=== PATIENT | female | born 1955 | race Caucasian/White ===

== ENCOUNTER 2019-02-27 15:31 | Inpatient (IN) ==
[2019-02-27] MEDS ORDERED: RITALIN PO PRN (17:29)
[2019-02-27] MEDS: LOVENOX SUBQ SCH (18:00)
[2019-02-27 18:07] LABS: BASO# 0.02 X1000 (0.0-0.2); BASO% 0.2 % (0.0-0.8); EOS# 0.03 X1000 (0.0-0.7); EOS% 0.4 % (0.0-10.0); HEMATOCRIT 27.3 % (37.0-47.0); HEMOGLOBIN 8.9 g/dL (12.0-16.0); IMM GRAN# 0.02 X1000 (0.0-0.04); IMM GRAN% 0.2 % (0.0-0.5); LYMPH# 0.67 X1000 (1.2-3.4); LYMPH% 7.9 % (20.5-51.1); MCH 31.8 PG (27-31); MCHC 32.6 g/dL (33-37); MCV 97.5 FL (81-99); MONO# 0.79 X1000 (0.11-0.59); MONO% 9.3 % (1.7-9.3); NEUT# 6.99 X1000 (1.4-6.5); PLT 79 X1000 (130-400); RDW 19.2 % (11.5-14.5); WBC 8.52 X1000 (4.8-10.8)
[2019-02-27] MEDS: ZOSYN 3.375 GM in NS 50 ML IV SCH (18:19)
[2019-02-27] MEDS: PEPCID IV SCH (18:19)
[2019-02-27 18:26] LABS: ESTIMATED GFR > 60
[2019-02-27 18:29] LABS: AGAP 15; ALB/GLOB RATIO 0.8; ALKALINE PHOSPHATASE 130 U/L (32-104); BUN 15 mg/dL (8-22); C REACTIVE PROT QUANT 279.57 mg/L (0.00-5.00); CALCIUM 8.8 mg/dL (8.8-10.2); CHLORIDE 92 mmol/L (98-107); COSMO 263; CREATININE 0.9 mg/dL (0.5-0.9); GLUCOSE 161 mg/dL (70-104); GOT 10 U/L (10-30); GPT 6 U/L (10-36); POTASSIUM 4.6 mmol/L (3.5-5.1); SODIUM 129 mmol/L (136-145); TCO2 22 mmol/L (25-35); TOTAL BILIRUBIN 0.51 mg/dL (0.20-1.00); TOTAL PROTEIN 6.9 g/dL (6.3-8.3)
[2019-02-27] MEDS ORDERED: VANCOMYCIN IV PER PHARMACY MISC SCH (18:45)
[2019-02-27] MEDS: DILAUDID IV PRN (19:19)
[2019-02-27] MEDS: 1/2 NS 1,000 ML IV SCH (20:50)
[2019-02-27] MEDS: VANCOMYCIN 1.9 GM in NS 500 ML IV SCH (20:50)
--- NOTE | 2019-02-27 22:37 | HISTORY AND PHYSICAL ---
CHIEF COMPLAINT: Direct admission from Dr. Ashley's office for radiation skin burn with necroses on the back of the neck, left shoulder, the whole left breast radiating to the left side of the implant. HISTORY OF PRESENT ILLNESS: She is a 63-year-old white female has been battling with metastatic breast cancer since March 2014. She has been under the care of Dr. Ashley, Dr. Serrano, Dr. Quiñones. She had a stage III positive lymph nodes radical mastectomy followed by reconstruction by Dr. Quiñones . I have not seen the patient since 2015. She has a recurrence of the disease. Subsequently, she finished radiation therapy a month ago. She is requiring hematological support. Waiting for a repeat PET scan. In the meantime, she developed radiation necrotic ulcer on the nape of the neck with foul-smelling drainage on the left breast implant, on the side of the abdomen. Basically, admitted to the hospital with IV antibiotics, hematological support, pain control, removal of the breast implant with debridement with aggressive IV antibiotics and cultures. The patient is undergoing outpatient wound care without any improvement. Dr. Quiñones was consulted as well as Dr. Ashley. PAST MEDICAL HISTORY: Recurrent left breast cancer, stage IV, cervical spondylosis, type 2 diabetes, metabolic syndrome, hypertension, history of shingles in the left L1, hiatal hernia, hyperlipidemia, sleep apnea, lymphedema on the left side. PAST SURGICAL HISTORY: A dermoid cyst excision, left mastectomy followed by reconstruction with lymphadenectomy, port on the right side. MEDICATIONS: Listed Effexor 235 daily, Zyrtec 10 mg p.o. b.i.d., metformin 500 p.o. b.i.d., Ritalin 5 p.o. b.i.d., [place] 7.5 10 t.i.d., Xanax 0.25 p.o. b.i.d., fentanyl patch 125 mcg daily, Mag oxide, baclofen 5 p.o. b.i.d., Lyrica 25 daily. ALLERGIES: Loratadine and Flonase. SOCIAL HISTORY: She is . One child. 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 No smoking. Socially drinks alcohol. FAMILY HISTORY: Father at the age of 74 from COPD. Mom 82 years old with breast cancer with mastectomy. REVIEW OF SYSTEMS: HEENT: No headache. No vision problem. She also has some inflammatory changes in the right breast. Port on the right side. necrotic ulcer on the back of the neck all the way to the left shoulder and the whole left breast implant was infected. Left arm lymphedema noted. Chest: Bilateral air entry. Heart: Distant heart sounds. Abdomen: Belly is soft, nontender. No peripheral edema or cyanosis. Neurologic: No obvious neurological deficits. Neck: No neck pain. A lot of pain around the back of the neck. Cardiopulmonary: No chest pain, shortness of breath, PND, orthopnea. Extremities: Swelling of left arm. Foul-smelling drainage of the skin from the necrotic area of the left breast. GI: No nausea, vomiting, abdominal pain. : No history of hesitancy, frequency, dysuria. No swelling of legs. No joint pain. Neurologic: No focal symptoms weakness. EXAMINATION: Vital signs: Temperature is 99.8 degrees, pulse 107, blood pressure 123/73. 5 feet 6, 204 pounds. HEENT: Atraumatic, normocephalic. Pupils equal, reactive to light. Alopecia noted. Radiation burn on the nape of the neck extending down to the left upper shoulder and the whole left breast implant was infected and lymphedema noted on the left side. Chest: Bilateral air entry. Heart: Sounds are regular. Abdomen: Belly is soft, nontender. Good bowel sounds. Extremities: No peripheral edema or cyanosis. Neurologic: No obvious neurological deficits. INVESTIGATIONS: CBC: White cell count 8.5, hematocrit 27, platelets 79,000. Sodium 129, potassium 4.6, chloride 92, BUN 15, creatinine 0.9, glucose 167, alkaline phosphatase 130. CRP is high. ASSESSMENT AND PLAN: 1. A 63-year-old white female with metastatic breast cancer, status post chemotherapy and radiation, complicated by radiation skin burn, foul-smelling drainage, infected implant. Plan is removal of the implant along with debridement by Dr. Quiñones. 2. Pain control with Dilaudid and fentanyl patch 25 mcg daily. 3. Continue IV fluids. 4. Deep vein thrombosis and gastrointestinal prophylaxis as per order sheet. Reconcile home medicines. Initiate antibiotics with vancomycin and Zosyn. 5. History of anemia, recently has transfusion. Maintain hematocrit around 30 in light of preparing for surgery. 6. Type 2 diabetes on metformin. 7. Reconcile home medications. Appreciated consultants. Will follow up. cc: Michael Cloud MD MTDD
[2019-02-28] MEDS: ZOSYN 3.375 GM in NS 50 ML IV SCH ×4 (01:28→18:44)
[2019-02-28] MEDS: DILAUDID IV PRN ×4 (01:43→21:30)
[2019-02-28] MEDS ORDERED: NS 500 ML ONE ×2 (02:46→14:47)
[2019-02-28] MEDS: TYLENOL PO PRN ×2 (03:26→21:37)
[2019-02-28] MEDS: PEPCID IV SCH ×2 (06:44→16:29)
[2019-02-28] MEDS: GLUCOPHAGE PO SCH ×2 (10:31→16:28)
[2019-02-28] MEDS: LASIX PO SCH (10:32)
[2019-02-28] MEDS: 1/2 NS 1,000 ML IV SCH ×2 (11:08→16:27)
[2019-02-28] MEDS: EFFEXOR XR PO SCH (11:39)
[2019-02-28] MEDS ORDERED: DIPRIVAN 1% ONE (12:07)
[2019-02-28] MEDS ORDERED: XYLOCAINE-MPF 2% ONE (12:08)
[2019-02-28] MEDS ORDERED: DILAUDID ONE (13:15)
[2019-02-28] MEDS ORDERED: SODIUM CHLORIDE 0.9% 10 ML ONE (13:16)
[2019-02-28] MEDS ORDERED: ZOFRAN ONE (13:58)
[2019-02-28] MEDS: DILAUDID ONE ×4 (14:40→14:55)
[2019-02-28] MEDS ORDERED: PHENERGAN ONE (14:59)
[2019-02-28] MEDS: LOVENOX SUBQ SCH (16:29)
--- NOTE | 2019-02-28 20:11 | PROGRESS NOTE ---
DATE: 02/28/2019 SUBJECTIVE: The patient is in a lot of pain, did not have any good sleep. Waiting for debridement of the radiation ulcers on the neck and the shoulder and the left breast. REVIEW OF SYSTEMS: Within normal limits. OBJECTIVE: Neck: Supple. Chest: Bilateral air entry. Cardiovascular: Heart sounds are regular. Abdomen: Belly is soft, nontender. Good bowel sounds. Neurological: No neurological deficits. INVESTIGATIONS: CBC: White cell count 8.5, hematocrit 27.3, platelets 79,000, SMA 7, sodium 129, potassium 4.6, alkaline phosphatase 130. CRP was high. ASSESSMENT AND PLAN: 1. Anemia due to chronic disease. Transfusion of 1 unit of packed RBCs. 2. Metastatic breast cancer under the care of Dr. Ashley status post radiation. 3. Necrotic ulcer on the back of the neck and the left breast. IV vancomycin and Zosyn. 4. Waiting for debridement. 5. Pain control with fentanyl patch and Dilaudid. DVT and GI prophylaxis with Lovenox and Pepcid. 6. Type 2 diabetes on metformin. We will follow up. LEVEL OF DOCUMENTATION: 25 minutes. cc: Michael Cloud MD
--- NOTE | 2019-02-28 20:42 | OPERATIVE NOTE ---
PROCEDURE DATE: 02/28/2019 PREOPERATIVE DIAGNOSES: 1. Left breast cancer. 2. Radiation-induced necrosis of chest wall, left axilla and left neck. 3. Exposed left breast implant with purulence, with infection. POSTOPERATIVE DIAGNOSES: 1. Left breast cancer. 2. Radiation-induced necrosis of chest wall, left axilla and left neck. 3. Exposed left breast implant with purulence, with infection. PROCEDURE PERFORMED: 1. Removal of left breast implant. 2. Excisional debridement of left inferior chest wall wound down to pectoralis muscle, 11 x 5 cm. 3. Excisional debridement of left superior chest wound down to muscle, 6 x 5 cm. 4. Excisional debridement of left axilla, 9 x 4 cm, down to subcutaneous tissue and muscle. 5. Excision of left neck down to the level of the muscle, 9 x 3 cm. OPERATIVE NOTE: Risks, benefits and alternatives were discussed with the patient. She consented to the procedure, seen preoperatively and the surgical site was confirmed and marked. She was taken to the operating room. She was placed with left arm out and prepped with Betadine on the left neck, chest and axilla. She was draped in the usual fashion. After a time-out I made an incision through the necrotic portions of her left breast reconstruction. I expressed a large amount of pus, which was cultured. We then extended the inframammary incision and removed the implant, after dissecting out the loosely attached fibrotic capsule. It appeared that most of her [place] skin flap was necrotic, but the latissimus flap was perfused and intact from medial to lateral. This left a large space posteriorly. We debrided the necrotic tissue, noted hemostasis and excised some of the capsule. We washed out the purulence with Vashe and packed it with Vashe Kerlix. We then debrided the left neck and left axilla wounds with a curette, noting hemostasis. Dressing was applied. Overall, she had extensive skin changes and soft tissue changes, but we felt we had adequate control of the infection and necrosis at this juncture. Vashe dressing was applied to each as well as ABD and tape out laterally and medially, to relatively normal-appearing skin. She tolerated it well, was awoken and transferred to recovery. I spoke with family. We will keep her in the hospital for antibiotics and wound care going forward. cc: MD Michael Bloom MD
--- NOTE | 2019-02-28 20:48 | GENERAL SURGERY CONSULTATION ---
DATE: 02/28/2019 HISTORY OF PRESENT ILLNESS: This is a 63-year-old female with a history of left breast cancer. She was operated on by Dr. Narayanan approximately 5 years ago, underwent a modified radical mastectomy. She had reconstruction by Dr. Timmons requiring latissimus dorsi flap for wound issues and wound coverage. Apparently, she underwent radiation at that time and then had a recurrence and underwent a second round of radiation. I have seen her at the [facility] last 2 weeks. She initially presented with significant radiation-induced necrosis to her skin, left chest. We started local wound care, saw her in a short interval at which point the necrosis had progressed and she now had exposed implant on the left chest with purulence. She was admitted for further management of this. MEDICAL HISTORY: 1. Metastatic breast cancer. 2. 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 3. Radiation-induced left chest necrosis. 4. Cervical spine disease. 5. Hypertension. 6. Hyperlipidemia. 7. Sleep apnea. 8. Lymphedema. SURGICAL HISTORY: 1. Left modified radical mastectomy with reconstruction with an implant and a latissimus flap. 2. Right-sided port. 3. Dermoid cyst. MEDICATIONS: Ongoing Carboplatin chemotherapy. SOCIAL HISTORY: No tobacco, alcohol, or drugs. She is . She has an attentive family. FAMILY HISTORY: Reviewed. REVIEW OF SYSTEMS: Ten point negative. PHYSICAL EXAMINATION: Vital signs: She has had a low-grade fever overnight, low-grade tachycardia. Blood pressure is 1 teens to 120s, oxygen saturation mid to high 90s on room air. General: She is alert, extensive necrosis of the left neck and chest with open wounds in the left chest, axilla, neck, exposed implants, left upper quadrant extensive radiation changes, left upper extremity edema peripheral vascular right-sided port. Psychiatric: Appropriate affect with some confusion. Neurologic: No gross deficits. Cardiovascular: Normal rate. Pulmonary: No increased work of breathing. LABORATORY DATA: Her white count is 8, hematocrit is 27, creatinine 0.9. ASSESSMENT AND PLAN: This 63-year-old female had a long discussion with the [facility] yesterday. She has been admitted. She consents to left breast implant removal with debridement of her necrotic wounds. We discussed the very poor nature of this healing. We will continue antibiotics, wound care through the weekend with I suspect ultimate plans for hospice and palliative care going forward. cc: MD Michael Bloom MD
[2019-03-01] MEDS: ZOSYN 3.375 GM in NS 50 ML IV SCH ×4 (01:13→20:42)
[2019-03-01] MEDS: DILAUDID IV PRN ×2 (01:13→08:39)
[2019-03-01] MEDS: VANCOMYCIN 1.9 GM in NS 500 ML IV SCH (01:53)
[2019-03-01] MEDS: PEPCID IV SCH ×2 (06:01→20:46)
[2019-03-01] MEDS: SODIUM CHLORIDE 0.9% INJ SCH ×2 (06:01→20:46)
[2019-03-01] MEDS: GLUCOPHAGE PO SCH ×2 (08:37→20:44)
[2019-03-01] MEDS: LASIX PO SCH (08:37)
[2019-03-01] MEDS: EFFEXOR XR PO SCH (08:37)
[2019-03-01] MEDS ORDERED: DURAGESIC 25 MICROGM/HR PATCH TD SCH (09:00)
[2019-03-01] MEDS ORDERED: TEMOVATE 0.05% CREAM TOP SCH (09:00)
[2019-03-01] MEDS: 1/2 NS 1,000 ML IV SCH (09:17)
[2019-03-01] MEDS: DURAGESIC 100 MICROGM/HR PATCH TD SCH (09:17)
--- NOTE | 2019-03-01 10:51 | PROGRESS NOTE ---
DATE: 03/01/2019 SUBJECTIVE: The patient is a 63 -year-old white female with known case of metastatic breast cancer. The patient had radiation burn on her back of the neck, left shoulder, whole left breast requiring debridement of the necrotic skin, IV antibiotics and pain control. The patient underwent removal of left breast implant, excision debridement of inferior chest wall wound down to the pectoralis muscle, the superior chest wall wound, debridement of left axilla, excision of the left neck wound. The patient tolerated procedure well. The patient is on IV antibiotics and pain management. She denied any high-grade fever or chills. No typical chest pain or palpitations. Mild nausea. No vomiting. Admission history and physical noted. PAST MEDICAL HISTORY: Significant for left breast cancer stage IV, cervical spondylosis, metabolic syndrome, hypertension, hiatal hernia, hyperlipidemia and sleep apnea. OBJECTIVE: Vital Signs: Vital signs noted. Neck: Supple. No JVD. Lungs: Bibasilar crepitations. Heart: S1 and S2 heard. Abdomen: Soft, nontender. Bowel sounds present. No acute DVT in the legs. ACQUISITION ADVISOR: Alert, awake able to move all 4 limbs. ADMISSION LABORATORY DATA: Revealed sodium 129, potassium 4.6, chloride 92, carbon dioxide 22, C- reactive protein 279.57. Hemoglobin 8.9, hematocrit 29.3. ASSESSMENT/PLAN: 1. Consideration radiation burn on the chest wall, neck, status post debridement. 2. History of breast cancer. 3. Hyponatremia. 4. Anemia of chronic disease. 5. Metabolic syndrome. 6. Hypertension. 7. Labs and medication noted. 8. We will continue current treatment and close observation. 9. Overall plan discussed with the patient and daughter and they are in agreement. cc: MD Michael Avendano MD
--- NOTE | 2019-03-01 12:12 | PROGRESS NOTE ---
DATE: 03/01/2019 SUBJECTIVE: Ms. Paty Alonzo is a 63-year-old white female with metastatic left breast cancer and she underwent debridement of her wounds, left chest, and removal of an implant per Dr. Quiñones yesterday. The wounds are dressed. She is awake and cooperative. PLAN: We will advance her diet. We will get her pain medicine correct. She is receiving IV antibiotics. We will leave her dressings in place. cc: MD Michael Cook MD
[2019-03-01] MEDS: NORCO-7.5 PO PRN ×2 (14:57→20:52)
[2019-03-01] MEDS: LOVENOX SUBQ SCH (20:45)
[2019-03-02] MEDS: 1/2 NS 1,000 ML IV SCH ×2 (00:07→16:48)
[2019-03-02] MEDS: DILAUDID IV PRN ×4 (00:40→23:16)
[2019-03-02] MEDS: ZOSYN 3.375 GM in NS 50 ML IV SCH ×4 (03:48→20:13)
[2019-03-02] MEDS: PEPCID IV SCH ×2 (06:22→16:44)
[2019-03-02] MEDS: SODIUM CHLORIDE 0.9% INJ SCH (06:22)
[2019-03-02 07:22] LABS: EOS# 0.03 X1000 (0.0-0.7); EOS% 0.7 % (0.0-10.0); HEMATOCRIT 28.4 % (37.0-47.0); LYMPH# 0.51 X1000 (1.2-3.4); LYMPH% 12.3 % (20.5-51.1); MCH 30.9 PG (27-31); MCHC 31.7 g/dL (33-37); MCV 97.6 FL (81-99); MONO# 0.32 X1000 (0.11-0.59); MONO% 7.7 % (1.7-9.3); MPV 9.5 FL (7.4-10.4); NEUT# 3.27 X1000 (1.4-6.5); NEUT% 79.3 % (42.2-75.2); PLT 83 X1000 (130-400); RBC 2.91 XMIL (4.2-5.4); RDW 17.7 % (11.5-14.5); WBC 4.13 X1000 (4.8-10.8)
[2019-03-02 07:31] LABS: AGAP 7; ALB/GLOB RATIO 0.8; ALBUMIN 2.5 g/dL (3.5-5.0); ALKALINE PHOSPHATASE 139 U/L (32-104); BUN 8 mg/dL (8-22); CALCIUM 8.1 mg/dL (8.8-10.2); CHLORIDE 98 mmol/L (98-107); COSMO 266; CREATININE 0.7 mg/dL (0.5-0.9); ESTIMATED GFR > 60; GLUCOSE 93 mg/dL (70-104); GOT 19 U/L (10-30); GPT 8 U/L (10-36); MAGNESIUM 1.5 mg/dL (1.5-2.7); POTASSIUM 3.7 mmol/L (3.5-5.1); SODIUM 134 mmol/L (136-145); TCO2 29 mmol/L (25-35); TOTAL BILIRUBIN 0.27 mg/dL (0.20-1.00); TOTAL PROTEIN 5.8 g/dL (6.3-8.3)
--- NOTE | 2019-03-02 08:46 | PROGRESS NOTE ---
DATE: 03/02/2019 SUBJECTIVE: Ms. Alonzo is sitting up this morning, eating a regular diet breakfast. Her heart rate is 85, blood pressure 134/76, O2 saturation 98%. She is afebrile. Her hematocrit is 28%, white blood cell count is 4. Electrolytes are within normal limits, as are her liver function tests. Her wounds remain dressed. I will ask the nurses to change her wounds this morning. IV antibiotics continue. cc: MD Michael Cook MD
--- NOTE | 2019-03-02 08:53 | PROGRESS NOTE ---
DATE: 03/02/2019 SUBJECTIVE: Ms. Charles is doing fairly well. No fever or chills. Her pain is under control. No nausea or vomiting. The patient did have a good bowel movement. Patient admitted with radiation burn to the neck, chest wall, and the breast. The patient had surgery, debridement. Her wound is looking better according to surgeon and patient. OBJECTIVE: Vital Signs: Blood pressure 134/76, pulse 85, respirations 14, temperature 97.9 degrees. Neck: Supple. No JVD. Lungs: Bilateral good air entry present. CVS: S1 and S2 heard. Abdomen: Soft, nontender. Bowel sounds present. FILER REPAIRER: Alert, awake, able to move all 4 limbs. LABORATORY DATA: Blood work done today shows WBC count 4.13, hemoglobin 9, hematocrit 28.4, platelet count 83,000. Electrolytes were fairly benign. ASSESSMENT: The patient's problems include: 1. Radiation burn on the chest wall and neck, status post debridement. 2. History of breast cancer. 3. Hyponatremia, improving. 4. Thrombocytopenia. 5. Metabolic syndrome. Overall, the patient is doing better. Will continue current treatment and close observation. Plan discussed with the patient and family, and they are in agreement. cc: MD Michael Avendano MD
[2019-03-02] MEDS: VANCOMYCIN 2 GM in NS 500 ML IV SCH (09:03)
[2019-03-02] MEDS: EFFEXOR XR PO SCH (09:16)
[2019-03-02] MEDS: LASIX PO SCH (09:17)
[2019-03-02] MEDS: GLUCOPHAGE PO SCH ×2 (09:17→16:44)
[2019-03-02] MEDS: NORCO-7.5 PO PRN ×3 (10:21→20:11)
[2019-03-02] MEDS: LOVENOX SUBQ SCH (16:45)
[2019-03-03] MEDS: ZOSYN 3.375 GM in NS 50 ML IV SCH ×4 (03:35→20:45)
[2019-03-03] MEDS: 1/2 NS 1,000 ML IV SCH ×4 (03:36→23:47)
[2019-03-03] MEDS: PEPCID IV SCH ×2 (04:57→16:46)
[2019-03-03] MEDS: NORCO-7.5 PO PRN ×3 (05:46→19:54)
[2019-03-03] MEDS: LASIX PO SCH (08:48)
[2019-03-03] MEDS: GLUCOPHAGE PO SCH ×2 (08:48→16:09)
[2019-03-03] MEDS: EFFEXOR XR PO SCH (08:49)
[2019-03-03] MEDS: VANCOMYCIN 2 GM in NS 500 ML IV SCH (09:40)
[2019-03-03] MEDS: DILAUDID IV PRN ×3 (13:37→23:45)
[2019-03-03] MEDS: LOVENOX SUBQ SCH (16:46)
--- NOTE | 2019-03-03 20:17 | GENERAL SURGERY PROGRESS NOTE ---
DATE: 03/03/2019 SUBJECTIVE: Doing well. Dressing changes going well. No fevers. No tachycardia. She seems more alert. Feels better. No fevers OBJECTIVE: She is alert. Dressings are intact. They are clean. White count 4, hematocrit is 28. Creatinine 0.7. ASSESSMENT AND PLAN: This is a 63-year-old female with radiation-induced necrosis of left chest, breast. She had an infected exposed implant that has been removed. Dressing changes are going well. We will continue this with plans going forward. cc: MD Michael Bloom MD
--- NOTE | 2019-03-03 21:34 | PROGRESS NOTE ---
DATE: 03/03/2019 SUBJECTIVE: The patient is a little bit confused. I appreciated Dr. Quiñones's input. Operative note reviewed. Removed left breast implant. Excision and debridement of left inferior chest wall 11 x 5 cm. Excision and debridement of left superior chest wall 6 x 5 cm. Excision and debridement of left axilla 9 x [address] to the muscle. Excision of the left neck 9 x 3 cm. Transfused 1 unit of packed RBC. Out of the bed. OBJECTIVE: PHYSICAL EXAMINATION: Vital signs: On examination temperature 97.6, pulse is 89, blood pressure 129/75. HEENT: Exam within normal limits. Dressing was applied. Lungs: Bilateral air entry. Heart: Sounds are regular. Abdomen: Port was seen on the right side. Belly is soft, nontender. Neurologic: No obvious neurological deficits. LABORATORIES: Urine cultures were negative. Pathology is pending. ASSESSMENT AND PLAN: 1. Metastatic breast cancer. 2. Infected radiation skin and bone, status post debridement as above. Currently receiving IV Zosyn and vancomycin. 3. Diabetes on metformin. Pain is adequately controlled. Continue IV fluids and we will repeat the labs in the morning. I appreciate Dr. Quiñones's consult. Waiting for the path report. LEVEL OF DOCUMENTATION: 25 minutes. cc: Michael Cloud MD
[2019-03-04] MEDS: ZOSYN 3.375 GM in NS 50 ML IV SCH ×4 (02:55→20:10)
[2019-03-04] MEDS: DILAUDID IV PRN ×3 (02:55→16:40)
[2019-03-04] MEDS: PEPCID IV SCH ×2 (04:32→18:05)
[2019-03-04] MEDS: NORCO-7.5 PO PRN ×2 (06:08→20:58)
[2019-03-04 06:35] LABS: BASO# 0.01 X1000 (0.0-0.2); BASO% 0.2 % (0.0-0.8); EOS# 0.05 X1000 (0.0-0.7); EOS% 1.2 % (0.0-10.0); HEMATOCRIT 29.9 % (37.0-47.0); HEMOGLOBIN 9.2 g/dL (12.0-16.0); LYMPH# 0.85 X1000 (1.2-3.4); LYMPH% 20.3 % (20.5-51.1); MCHC 30.8 g/dL (33-37); MCV 97.4 FL (81-99); MONO# 0.36 X1000 (0.11-0.59); MONO% 8.6 % (1.7-9.3); MPV 9.2 FL (7.4-10.4); NEUT# 2.92 X1000 (1.4-6.5); NEUT% 69.7 % (42.2-75.2); PLT 100 X1000 (130-400); RBC 3.07 XMIL (4.2-5.4); RDW 17.7 % (11.5-14.5); WBC 4.19 X1000 (4.8-10.8)
[2019-03-04 06:53] LABS: AGAP 14; ALB/GLOB RATIO 0.8; ALBUMIN 2.7 g/dL (3.5-5.0); ALKALINE PHOSPHATASE 134 U/L (32-104); BUN 9 mg/dL (8-22); CALCIUM 8.1 mg/dL (8.8-10.2); CHLORIDE 100 mmol/L (98-107); COSMO 278; CREATININE 0.8 mg/dL (0.5-0.9); ESTIMATED GFR > 60; GLUCOSE 88 mg/dL (70-104); GOT 13 U/L (10-30); GPT 7 U/L (10-36); POTASSIUM 3.8 mmol/L (3.5-5.1); SODIUM 140 mmol/L (136-145); TCO2 26 mmol/L (25-35); TOTAL BILIRUBIN 0.24 mg/dL (0.20-1.00); TOTAL PROTEIN 5.9 g/dL (6.3-8.3)
[2019-03-04] MEDS ORDERED: XYLOCAINE 4% TOPICAL SOLUTION TOP ONE (07:29)
[2019-03-04] MEDS: GLUCOPHAGE PO SCH ×2 (08:55→18:06)
[2019-03-04] MEDS: EFFEXOR XR PO SCH (08:55)
[2019-03-04] MEDS: LASIX PO SCH (08:55)
[2019-03-04] MEDS: DURAGESIC 100 MICROGM/HR PATCH TD SCH (08:57)
[2019-03-04] MEDS: DURAGESIC 25 MICROGM/HR PATCH TD SCH (08:57)
[2019-03-04] MEDS ORDERED: XYLOCAINE 4% TOPICAL SOLUTION TOP SCH (09:00)
[2019-03-04] MEDS: VANCOMYCIN 2 GM in NS 500 ML IV SCH (10:24)
--- NOTE | 2019-03-04 11:55 | GENERAL SURGERY PROGRESS NOTE ---
DATE: 03/04/2019 SUBJECTIVE: Doing well. Pain is okay. She is more alert. No fevers. No tachycardia. Blood pressure 143/66. Appetite is improving. White count is 4, hematocrit is 29. Creatinine is 0.8. PHYSICAL EXAMINATION: Her wounds seem to be clean. Her dressings are clean. There is no progressive necrosis noted. Janell notes no further purulence on her dressing changes. ASSESSMENT AND PLAN: This is a 63-year-old female with radiation-induced necrosis of the left neck and chest. Will continue local wound care and antibiotics. She is overall doing well. cc: MD Michael Bloom MD
[2019-03-04] MEDS: 1/2 NS 1,000 ML IV SCH ×2 (15:44→23:41)
[2019-03-04] MEDS: LOVENOX SUBQ SCH (18:05)
--- NOTE | 2019-03-04 19:18 | PROGRESS NOTE ---
DATE: 03/04/2019 SUBJECTIVE: The patient is in good spirit, eating well. No complaints. PHYSICAL EXAM: Vital signs: Temp is 97 degrees, pulse 95, blood pressure is stable. HEENT: Within normal limits. Skin: Debridement noted with dressing. Physical exam no change. Waiting for path report. INVESTIGATIONS: CBC: White cell count 4.1, hematocrit 29.9, platelets 100,000. Sodium 140, potassium 3.8, BUN 9, creatinine 0.8, calcium 8.1. LFTs were normal. ASSESSMENT AND PLAN: 1. Radiation skin ulcers status post debridement. Continue IV antibiotics. 2. Metastatic breast cancer. Stable. 3. Deep vein thrombosis and gastrointestinal prophylaxis. 4. Pain adequately controlled. 5. Continue IV antibiotics. 6. Follow up on the cultures. 7. IV at least for the weekend. I discussed the plan of care with family. Appreciate Dr. Ocasio follow up. LEVEL OF DOCUMENTATION: 25 minutes. cc: Michael Cloud MD
[2019-03-04] MEDS: LMX 5 CREAM TOP SCH (23:42)
[2019-03-05] MEDS: ZOSYN 3.375 GM in NS 50 ML IV SCH ×4 (04:24→22:19)
[2019-03-05] MEDS: PEPCID IV SCH ×2 (04:29→16:37)
[2019-03-05] MEDS: 1/2 NS 1,000 ML IV SCH ×4 (04:30→22:19)
[2019-03-05] MEDS: VANCOMYCIN 2 GM in NS 500 ML IV SCH ×2 (09:20→10:06)
[2019-03-05] MEDS: EFFEXOR XR PO SCH (09:21)
[2019-03-05] MEDS: LASIX PO SCH (09:21)
[2019-03-05] MEDS: GLUCOPHAGE PO SCH ×2 (09:31→16:38)
[2019-03-05] MEDS: DILAUDID IV PRN ×2 (13:54→22:38)
[2019-03-05] MEDS: LMX 5 CREAM TOP SCH (14:01)
[2019-03-05] MEDS: NORCO-7.5 PO PRN ×2 (15:14→20:53)
[2019-03-05] MEDS: LOVENOX SUBQ SCH (16:38)
--- NOTE | 2019-03-05 19:06 | GENERAL SURGERY PROGRESS NOTE ---
DATE: 03/05/2019 SUBJECTIVE: Dressing changes are going well. Pain is reasonably controlled. She is more alert. No fevers. No tachycardia. OBJECTIVE: On exam, dressings are clean and in place. No new labs this morning. ASSESSMENT AND PLAN: A 60-year-old female status post explant of left breast implant with debridement of extensive wounds. We will continue local wound care. Plan for discharge when her pain is controlled enough with her dressing changes. From an infectious standpoint, I think we can transition to oral antibiotics at that time. Dr. Guzmán will be covering for my patients tomorrow. I am available by phone as needed. cc: MD Michael Bloom MD MTDD
--- NOTE | 2019-03-05 21:14 | PROGRESS NOTE ---
DATE: 03/05/2019 SUBJECTIVE: The patient is doing better. Pain is adequately controlled, and she is more alert, eating better, and wounds are dressed. No complaints. PHYSICAL EXAMINATION: Vital Signs: Temperature is 97, pulse 87, blood pressure 153/75. HEENT: Within normal limits. Neck: Supple. No lymphadenopathy. Chest: Bilateral air entry. Cardiovascular: Heart sounds are regular. Belly: Soft, nontender. INVESTIGATIONS: None reported today. Pathology specimen: Skin with metastatic carcinoma involving the dermis, breast implant. ASSESSMENT AND PLAN: 1. Metastatic breast cancer with radiation, bone. Continue the local wound care for superimposed infection with IV vancomycin and Zosyn. 2. Depression, on Ritalin. 3. Pain adequately control on fentanyl and Dilaudid. Continue IV fluids. 4. Deep venous thrombosis and gastrointestinal prophylaxis with Lovenox and Protonix. 5. Will repeat the labs. We will keep for the weekend and will reassess the wound. LEVEL OF DOCUMENTATION: 25 minutes. cc: Michael Cloud MD
[2019-03-06] MEDS: ZOSYN 3.375 GM in NS 50 ML IV SCH ×4 (04:55→21:40)
[2019-03-06] MEDS: PEPCID IV SCH ×2 (04:55→16:53)
[2019-03-06] MEDS: GLUCOPHAGE PO SCH ×2 (09:28→16:53)
[2019-03-06] MEDS: EFFEXOR XR PO SCH (09:28)
[2019-03-06] MEDS: LASIX PO SCH (09:28)
[2019-03-06] MEDS: NORCO-7.5 PO PRN ×2 (09:29→15:20)
[2019-03-06] MEDS: VANCOMYCIN 2 GM in NS 500 ML IV SCH (11:31)
[2019-03-06] MEDS: DILAUDID IV PRN ×2 (16:28→21:36)
[2019-03-06] MEDS: 1/2 NS 1,000 ML IV SCH (16:29)
[2019-03-06] MEDS: LOVENOX SUBQ SCH (16:53)
[2019-03-06] MEDS: LMX 5 CREAM TOP SCH ×2 (16:53→22:00)
[2019-03-07] MEDS: NORCO-7.5 PO PRN ×3 (04:38→21:38)
[2019-03-07] MEDS: 1/2 NS 1,000 ML IV SCH (04:41)
[2019-03-07] MEDS: SODIUM CHLORIDE 0.9% INJ SCH ×2 (04:41→16:34)
[2019-03-07] MEDS: PEPCID IV SCH ×2 (04:42→16:33)
[2019-03-07] MEDS: ZOSYN 3.375 GM in NS 50 ML IV SCH ×4 (04:42→21:38)
[2019-03-07] MEDS: DURAGESIC 100 MICROGM/HR PATCH TD SCH (08:20)
[2019-03-07] MEDS: DURAGESIC 25 MICROGM/HR PATCH TD SCH (08:20)
[2019-03-07] MEDS: GLUCOPHAGE PO SCH ×2 (08:21→16:33)
[2019-03-07] MEDS: LASIX PO SCH (08:21)
[2019-03-07] MEDS: EFFEXOR XR PO SCH (08:21)
[2019-03-07] MEDS: VANCOMYCIN 2 GM in NS 500 ML IV SCH (11:13)
[2019-03-07] MEDS: LMX 5 CREAM TOP SCH ×2 (16:32→16:41)
[2019-03-07] MEDS: LOVENOX SUBQ SCH (16:33)
--- NOTE | 2019-03-07 17:10 | PROGRESS NOTE ---
DATE: 03/07/2019 SUBJECTIVE: The patient is sitting out of the bed, eating well. Good spirits. Pathology findings were discussed with the family. Complains of diarrhea. No constipation. Pain is adequately controlled. PHYSICAL EXAMINATION: Temperature is 98.3, pulse 76, blood pressure 115/79.HEENT: Within normal limits. Port on the right side. The wounds were dressing on the neck, and left shoulder blade and left upper chest. Abdomen: Belly is soft, nontender. No edema. LABS: None reported. ASSESSMENT AND PLAN: 1. Metastatic breast cancer infiltrate cancer cells in the skin. 2. [place] orange in the right breast. Needs mammography. 3. Repeat the labs in the morning. 4. Diarrhea, rule out pseudomembranous colitis. Follow up on stool samples with probiotics. 5. Pain is adequately control with present doses. 6. Deep venous thrombosis/gastrointestinal prophylaxis as per order sheet IV fluids. Discontinue IV fluids. 7. Diabetes is well controlled. Repeat the labs in the morning and will continue present treatment until Sunday. Will reassess. Level of documentation 25 minutes. cc: Michael Cloud MD MTDD
[2019-03-08] MEDS: LMX 5 CREAM TOP SCH ×3 (05:33→21:20)
[2019-03-08] MEDS: PEPCID IV SCH ×2 (05:34→16:48)
[2019-03-08] MEDS: ZOSYN 3.375 GM in NS 50 ML IV SCH ×4 (07:00→21:18)
[2019-03-08] MEDS: LASIX PO SCH (08:23)
[2019-03-08] MEDS: GLUCOPHAGE PO SCH ×2 (08:23→16:48)
[2019-03-08] MEDS: CULTURELLE PO SCH (08:23)
[2019-03-08] MEDS: EFFEXOR XR PO SCH (08:23)
[2019-03-08] MEDS: NORCO-7.5 PO PRN ×2 (09:20→21:26)
[2019-03-08] MEDS: DILAUDID IV PRN ×2 (09:56→15:45)
[2019-03-08 10:48] LABS: BASO# 0.03 X1000 (0.0-0.2); BASO% 0.5 % (0.0-0.8); EOS# 0.15 X1000 (0.0-0.7); EOS% 2.4 % (0.0-10.0); HEMOGLOBIN 9.2 g/dL (12.0-16.0); LYMPH# 0.63 X1000 (1.2-3.4); LYMPH% 10.1 % (20.5-51.1); MCH 30.5 PG (27-31); MCHC 30.7 g/dL (33-37); MCV 99.3 FL (81-99); MONO# 0.43 X1000 (0.11-0.59); MONO% 6.9 % (1.7-9.3); MPV 9.9 FL (7.4-10.4); NEUT# 4.98 X1000 (1.4-6.5); NEUT% 80.1 % (42.2-75.2); PLT 94 X1000 (130-400); RBC 3.02 XMIL (4.2-5.4); RDW 18.7 % (11.5-14.5); WBC 6.22 X1000 (4.8-10.8)
[2019-03-08 10:54] LABS: ALB/GLOB RATIO 0.7; ALBUMIN 2.7 g/dL (3.5-5.0); CREATININE 1.4 mg/dL (0.5-0.9); POTASSIUM 3.2 mmol/L (3.5-5.1); TOTAL BILIRUBIN 0.28 mg/dL (0.20-1.00); TOTAL PROTEIN 6.6 g/dL (6.3-8.3)
[2019-03-08] MEDS: VANCOMYCIN 2 GM in NS 500 ML IV SCH (11:15)
--- NOTE | 2019-03-08 13:21 | PROGRESS NOTE ---
DATE: 03/08/2019 VITALS: Vital signs stable with temperature 98.3 degrees, heart rate 73, respirations 16, blood pressure 145/69, O2 saturation on room air of 96%. SUBJECTIVE: The patient is a 63-year-old white female with metastatic breast carcinoma, and wound of the left breast secondary to radiation. She had an implant which was removed by Dr. Quiñones this hospitalization. She has been followed by Dr. Ashley and is on chemotherapy with cisplatin. She has periodic PET scans and is due soon for another. She has known breast disease on the right, but no spread to bone or head. Her pain from the surgery has improved. She is still on Dilaudid p.r.n. and fentanyl. She also takes hydrocodone 7.5 mg t.i.d. p.r.n. OBJECTIVE: She has lymphedema of the left arm secondary to her breast disease. She has a pump at home, but has not been able to use it since developing the wound of her left breast post radiation. DIAGNOSTIC DATA: Laboratory this morning revealed hemoglobin 9.2, hematocrit 30.0, white blood count 6200. Sodium 137, potassium 3.2, BUN 11, creatinine 1.4, glucose 147. Calcium 8.0. Liver functions normal. Albumin low at 2.7. PLAN: Add p.o. potassium. Continue vancomycin and Zosyn. cc: MD Michael Umanzor MD
[2019-03-08] MEDS: LOVENOX SUBQ SCH (16:48)
[2019-03-08] MEDS: KLOR-CON PO SCH (21:18)
[2019-03-09] MEDS: ZOSYN 3.375 GM in NS 50 ML IV SCH ×5 (04:33→20:10)
[2019-03-09] MEDS: PEPCID IV SCH ×2 (04:33→17:07)
[2019-03-09] MEDS: SODIUM CHLORIDE 0.9% INJ SCH ×2 (04:33→17:07)
[2019-03-09] MEDS: GLUCOPHAGE PO SCH ×2 (09:01→16:16)
[2019-03-09] MEDS: KLOR-CON PO SCH ×3 (09:01→20:10)
[2019-03-09] MEDS: CULTURELLE PO SCH (09:01)
[2019-03-09] MEDS: DILAUDID IV PRN ×2 (09:01→16:17)
[2019-03-09] MEDS: EFFEXOR XR PO SCH (09:01)
[2019-03-09] MEDS: LASIX PO SCH (09:01)
[2019-03-09] MEDS: LMX 5 CREAM TOP SCH ×2 (09:05→20:10)
--- NOTE | 2019-03-09 10:26 | PROGRESS NOTE ---
DATE: 03/09/2019 Vital signs stable with temperature 98.4 degrees, heart rate 75, respirations 18, blood pressure 149/71, O2 saturation on room air 99%. Dressing was changed on her left breast wound this morning and it seems to be healing well. She is hoping to go home tomorrow. Chest is clear. Abdomen is soft. She has been up walking some without difficulty. PLAN: Continue vancomycin and Zosyn. cc: MD Michael Umanzor MD
[2019-03-09] MEDS: LOVENOX SUBQ SCH (17:07)
[2019-03-09] MEDS: NORCO-7.5 PO PRN ×2 (18:05→23:10)
[2019-03-09] MEDS ORDERED: VANCOMYCIN 1.6 GM in NS 250 ML IV SCH (23:00)
[2019-03-10] MEDS: ZOSYN 3.375 GM in NS 50 ML IV SCH ×4 (06:05→21:03)
[2019-03-10] MEDS: PEPCID IV SCH ×2 (06:06→17:47)
[2019-03-10] MEDS: KLOR-CON PO SCH ×2 (08:40→21:03)
[2019-03-10] MEDS: EFFEXOR XR PO SCH (08:40)
[2019-03-10] MEDS: GLUCOPHAGE PO SCH ×2 (08:40→17:47)
[2019-03-10] MEDS: DURAGESIC 25 MICROGM/HR PATCH TD SCH (08:40)
[2019-03-10] MEDS: DURAGESIC 100 MICROGM/HR PATCH TD SCH (08:40)
[2019-03-10] MEDS: LASIX PO SCH (08:40)
[2019-03-10] MEDS: CULTURELLE PO SCH (08:40)
--- NOTE | 2019-03-10 10:10 | MAMMOGRAPHY RESULT DOCUMENT ---
TOMOSYNTHESIS DIAG UNILA-RIGHT 03/10/2019 COMPARISON: 05/24/2017 TECHNIQUE: Computer aided detection imaging was used. FINDINGS: Unilateral right mammogram. Moderately dense tissue. There are many benign calcifications scattered in the breast on the current exam. No suspicious calcifications. No spiculated mass or area of architectural distortion. IMPRESSION:I do not identify a malignancy. Recommend annual mammography. ACR BI-RADS CATEGORY 2: BENIGN FINDING, DENSE NOTE: This facility is accredited by the [employer] for Mammography. A mammogram report should not delay biopsy if a dominant or clinically suspicious mass is present. Some cancers are not identified by mammography. Adenosis and dense breasts may obscure any underlying neoplasm. Electronically signed by John Paul Yuen 03/10/2019 10:07 AM
[2019-03-10] MEDS: NORCO-7.5 PO PRN (10:33)
[2019-03-10] MEDS: LMX 5 CREAM TOP SCH ×2 (13:37→22:53)
[2019-03-10] MEDS: DILAUDID IV PRN (13:39)
--- NOTE | 2019-03-10 17:24 | GENERAL SURGERY PROGRESS NOTE ---
DATE: 03/10/2019 SUBJECTIVE: She is feeling well. Dressing changes are going okay. Overall, her for the most part is doing this. No fevers. No tachycardia. OBJECTIVE: General: She is more alert. Seems to feel better. Integument: Warm and dry. Her dressings over her left neck and chest are clean and recently changed. LABORATORY DATA: Creatinine is up slightly to 1.7. Vancomycin troughs has been okay. White count was normal ASSESSMENT/PLAN: A 64-year-old female with complications associated with her left breast cancer status post removal of exposed implant. Dressing changes are going okay. Plan is for her to go home with ongoing Avastin therapy per Dr. 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 We will continue her dressing changes. From a surgical standpoint, she can go home when cleared. cc: MD Michael Bloom MD MTDD
[2019-03-10] MEDS: LOVENOX SUBQ SCH (17:47)
[2019-03-10] MEDS ORDERED: VANCOMYCIN 1 GM/NS 1 GM/250 ML IVPB IV SCH ×2 (21:00)
--- NOTE | 2019-03-10 21:32 | PROGRESS NOTE ---
DATE: 03/10/2019 SUBJECTIVE: Events noted. Patient is feeling better, anxious to go home. OBJECTIVE: No complaints on exam. Temperature is 98.3, pulse is 81, blood pressure is 141/76, oxygen saturation 93% on room air. All the bandages from the neck, left breast, left shoulder were all bandaged. Pictures were taken. Slowly healing. The right breast also has peau d'orange type of skin noted. INVESTIGATIONS: None reported since 03/08/2019. Creatinine is 1.4. ASSESSMENT AND PLAN: 1. Status post debridement, left neck, left shoulder blade, and left breast. Implant removed with metastatic implants noted. 2. Peau d'orange on the right breast mammography. 3. Elevated creatinine. Will discontinue vancomycin. Continue on intravenous Zosyn. 4. Diabetes is stable. Repeat the labs in the morning. 5. Deep venous thrombosis and gastrointestinal prophylaxis as per order sheet. 6. Pain is adequately controlled. 7. Will follow up on the mammography and will discuss with [facility]. LEVEL OF DOCUMENTATION: 25 minutes. cc: Michael Cloud MD
[2019-03-11] MEDS: ZOSYN 3.375 GM in NS 50 ML IV SCH ×2 (03:08→08:04)
[2019-03-11] MEDS: PEPCID IV SCH (05:13)
[2019-03-11 07:37] LABS: BASO# 0.03 X1000 (0.0-0.2); BASO% 0.5 % (0.0-0.8); EOS# 0.08 X1000 (0.0-0.7); EOS% 1.3 % (0.0-10.0); HEMATOCRIT 28.5 % (37.0-47.0); HEMOGLOBIN 8.9 g/dL (12.0-16.0); LYMPH# 0.64 X1000 (1.2-3.4); LYMPH% 10.8 % (20.5-51.1); MCH 30.6 PG (27-31); MCHC 31.2 g/dL (33-37); MCV 97.9 FL (81-99); MONO# 0.39 X1000 (0.11-0.59); MONO% 6.6 % (1.7-9.3); MPV 9.9 FL (7.4-10.4); NEUT# 4.81 X1000 (1.4-6.5); NEUT% 80.8 % (42.2-75.2); PLT 65 X1000 (130-400); RBC 2.91 XMIL (4.2-5.4); WBC 5.95 X1000 (4.8-10.8)
[2019-03-11 07:42] LABS: CALCIUM 8.3 mg/dL (8.8-10.2); CREATININE 1.5 mg/dL (0.5-0.9); POTASSIUM 3.3 mmol/L (3.5-5.1)
[2019-03-11] MEDS: EFFEXOR XR PO SCH (08:01)
[2019-03-11] MEDS: KLOR-CON PO SCH (08:01)
[2019-03-11] MEDS: CULTURELLE PO SCH (08:02)
[2019-03-11] MEDS: GLUCOPHAGE PO SCH (08:02)
[2019-03-11] MEDS: LASIX PO SCH (08:04)
[2019-03-11 08:30] VITALS: BP 134/69
[2019-03-11] MEDS: DILAUDID IV PRN (09:48)
[2019-03-11] MEDS: LMX 5 CREAM TOP SCH (10:03)
--- NOTE | 2019-03-12 21:26 | DISCHARGE SUMMARY ---
ADMISSION DATE: 02/27/2019 DISCHARGE DATE: 03/11/2019 DISCHARGE DIAGNOSES: 1. Radiation skin ulcers, multiple areas with superinfection, Staphylococcus infection, with underlying breast implants, mostly on the left neck, left shoulder blade, left breast. 2. Anemia due to chronic disease. 3. Metastatic breast cancer stage IV. 4. Cervical spondylosis. 5. Type 2 diabetes. 6. Metabolic syndrome,. 7. Hypertension. 8. Hiatal hernia. 9. Hyperlipidemia. 10. Sleep apnea. 11. Lymphedema on the left arm. CONSULTATIONS: 1. Dr. Quiñones. 2. wound cosult. PROCEDURES: 1. Transfusion of 1 unit of packed red blood cells. 2. Radiation-induced necrosis of the chest wall, left axilla, left neck, with removal of left breast implant, excisional debridement of left inferior chest wall, excisional debridement of left superior chest wound, excisional debridement of left axilla, excision of neck down to the level of the muscle, 9 x 3 cm. HISTORY OF PRESENT ILLNESS: In brief, she is a 64-year-old, pleasant white female, was not seen in my office since 2016, with metastatic breast cancer on the left side, under the care of Dr. Ashley with chemotherapy as well as radiation causing the radiation skin necrosis with multiple areas in the left side, foul-smelling drainage, unable to control the pain, anemia. Admitted to the hospital directly from Dr. Ashley's office. HOSPITAL COURSE: 1. Patient was given IV fluids through the port on the right side. 2. One unit of packed RBCs. 3. Intravenous vancomycin and Zosyn. 4. Surgical consult for debridement by Dr. Quiñones, as above. 5. Followup pathology showed metastatic breast,involvement of cancer cells. The patient is eating well. Pain is adequately controlled. At the time of discharge, the wounds are slowly healing, and the labs are as follows: CBC, white cell count 5.9, hematocrit 28.5, platelets 65,000. Sodium 140, potassium 3.3, BUN 14, creatinine 1.5, glucose 120. 6. The patient also developed diarrhea. Followup stool occult blood was negative. Clostridium difficile was negative. INSTRUCTIONS: The patient is anxious to go home and discharged with the following instructions: Outpatient wound care at [facility]. Follow up with Dr. Quiñones. Follow up with Dr. Ashley. Follow up in my office as well in 2 weeks. MEDICATIONS: Effexor 225 daily, Zyrtec 10 p.o. b.i.d., Metformin 500 p.o. b.i.d., Ritalin 5 mg p.o. b.i.d., [place] 10 t.i.d. as needed, Xanax 0.25 p.o. b.i.d., Fentanyl patch 125 mcg, as per Dr. Ashley, every 3 days; Baclofen 5 mg b.i.d., Lyrica 25 mg daily, Levaquin 500 mg daily for 10 days along with probiotics and followup. cc: MD Estevan Panchal MD MTDD
== END 2019-03-11 11:50 | disposition home or self-care (01) | DRG 571 ==
LOC: DIRADM 15:31 → 3N 15:45
PROVIDERS: ADMIT Internal Medicine; ATTEND Internal Medicine
CPT/HCPCS: 36430; 77055; 77061; 77065; 80048; 80053; 80202; 82270; 82565; 82948; 83735; 85025; 86140; 86850; 86900; 86901; 86920; 87205; 87324; 88300; 88304; 89055; A9270; G0206; G0279; J1170; J1650; J2405; J2543; J2550; J3370; J7040; P9016; S0028; XXXXX

== ENCOUNTER 2019-04-03 20:00 | Inpatient (IN) ==
--- NOTE | 2019-04-03 20:41 | PROVIDER DOCUMENTATION ---
HPI-Syncope/Dizziness - General Chief Complaint: Syncope Stated Complaint: SYNCOPE EPISODE Time Seen by Provider: 04/03/19 20:14 Source: patient, family Allergies/Adverse Reactions: Patient Allergies Allergy/AdvReac Type Severity Reaction Status Date / Time fluticasone propionate * AdvReac Mild Flu-like Verified 04/03/19 20:07 [From Flonase] symptoms loratadine [From Claritin-D] AdvReac Mild FATIGUE Verified 04/03/19 20:07 mometasone furoate AdvReac Mild Flu-like Verified 04/03/19 20:07 [From Nasonex] symptoms pseudoephedrine sulfate * AdvReac Mild FATIGUE Verified 04/03/19 20:07 [From Claritin-D] Home Medications: Home Medication List Medication Instructions Recorded Confirmed Last Taken Type Cetirizine HCl [Zyrtec] 10 mg PO BID 11/23/16 02/27/19 02/26/19 History Metformin [Glucophage] 500 mg PO BID CC 11/23/16 02/27/19 02/27/19 09:00 History Venlafaxine [Effexor] 225 mg PO DAILY 11/23/16 02/27/19 02/27/19 09:00 History Methylphenidate HCl [Ritalin] 5 mg PO BID 09/20/18 02/27/19 02/27/19 09:00 History Alprazolam [Xanax] 0.25 mg PO BID 02/26/19 02/27/19 02/27/19 09:00 History Fentanyl 125 mcg TD DIRECTED 02/26/19 02/27/19 02/26/19 History Hydrocodone/Acetaminophen 10 mg PO TID 02/26/19 02/27/19 02/27/19 14:00 History [Hydrocodone-Acetamin 7.5-325] Magnesium Oxide [Magnesium] 1,000 mg PO DAILY 02/26/19 02/27/19 02/27/19 09:00 History Baclofen 5 mg PO BID 02/27/19 02/27/19 02/27/19 09:00 History Pregabalin [Lyrica] 25 mg PO DAILY 02/27/19 02/27/19 02/26/19 21:00 History Levofloxacin [Levaquin] 500 mg PO DAILY #10 tab 03/11/19 Unknown Rx - History of Present Illness-Syncope/Dizzy Nature of Presenting Problem: patient is a 64 yowf presenting to the ED [facility] for near- syncopal episode. she reports she was at the wound center today, and while they were doing wound care she became dizzy, diaphoretic, and reports her vision "went white". she remembers the entire episode, and states she remembers her vision going back to normal and feeling normal again. she denies ever "passing out" because she reports she could still hear the physician and nurses talking. she reports she has a history of breast cancer, she had a mastectomy, and got infection. she reports the cancer is in her supraclavicular area, she received radiation and the radiation burnt her, so she got infection from that. she reports she gets chemo and a "red blood cell pill" every week. she reports while she was at the doctor's office today she received fluids. patient in no distress on assessment. she denies any new/changing/worsening chest pain, SOB, nausea, vomiting, diarrhea. she reports the pain she is having in her left shoulder/neck area is her baseline pain. her reports she has fentanyl patches, she takes norco 10 2-3 times daily, and she has severe anxiety. Prior Episodes: reports: single episode today Onset/Duration: reports: 4-6 hours ago Timing: reports: gone now Position/Activity at time of episode: reports: lying Symptoms prior to episode: reports: lightheaded, diaphoresis. denies: headache, visual disturbance, nausea/vomiting, chest pain, racing heart, abdominal pain, back pain, confusion, injury, recent head trauma, rapid heart beat Context: reports: felt faint, almost passed out. denies: became unresponsive, confused after event, incontinent of urine, incontinent of stool, breathing stopped, lost pulse Loss of Consciousness: no loss of consciousness Location of injury. (If syncope resulted in an injury.): reports: none Current Symptoms: reports: none/feels normal. denies: fever, chills, chest pain, short of breath, nausea, weakness, lightheaded, dizzy, headache, blurred vision Recently Seen Here or By Another Healthcare Provider: Yes Review of Systems - Adult - REVIEW OF SYSTEMS - ADULT Constitutional: reports: no symptoms reported. denies: chills, fever Eyes: reports: no symptoms reported Ears, Nose, Mouth & Throat: reports: no symptoms reported Cardiovascular: reports: no symptoms reported, other (near-syncope). denies: chest pain, palpitations Respiratory: reports: no symptoms reported. denies: cough, shortness of breath, wheezing Gastrointestinal: reports: no symptoms reported. denies: abdominal pain, diarrhea, nausea, vomiting Genitourinary: reports: no symptoms reported Musculoskeletal: reports: no symptoms reported Neurological: reports: dizziness/vertigo. denies: headache/migraines, numbness, slurred speech, tremors Psychiatric: reports: no symptoms reported Endocrine: reports: no symptoms reported Hematologic/Lymphatic: reports: no symptoms reported Allergic/Immunologic: reports: no symptoms reported All Other Systems: Reviewed and Negative Past History - Adult - PAST MEDICAL HISTORY-ADULT Review of Records: reports: Old Records Reviewed, Nursing Assessment Review, Medications Reviewed - SOCIAL HISTORY Smoking: denies Physical Exam-General - PHYSICAL EXAM-ADULT Initial Vital Signs Reviewed: Yes - CONSTITUTIONAL General Appearance: appears well, alert, no apparent distress, anxious - EYES Eyes: PERRL/EOMI - HEAD, EARS, NOSE, MOUTH & THROAT HENMT: normocephalic/atraumatic, moist mucous membranes, normal ENT inspection - NECK Neck: non-tender, full range of motion, supple - RESPIRATORY Respiratory: chest non-tender, lungs clear, normal breath sounds, no pleuratic chest pain, no respiratory distress, no accessory muscle use - CARDIOVASCULAR Cardiovascular: normal peripheral pulses, regular rate, rhythm, no edema, no JVD - GASTROINTESTINAL (ABDOMEN) Abdominal Exam: normal bowel sounds, non tender, soft - LYMPHATIC Lymphatic: no adenopathy - MUSCULOSKELETAL Back Exam: normal inspection, no CVA tenderness, no vertebral tenderness Extremity: normal range of motion, non-tender, normal gait - SKIN Integumentary: normal color, normal turgor, warm/dry - NEUROLOGIC Neurologic: grossly normal, no motor/sensory deficits - PSYCHIATRIC Psych/Mental Status: normal mood/affect, normal thought content, normal thought process, oriented x 3 Progress - PLAN OF CARE/RESULTS Progress/Plan/Lab Results: Vital Signs - 8 hr 04/03/19 20:02 04/03/19 23:07 Temperature 98.8 F Pulse Rate 113 H Pulse Rate [Sitting] 112 H Pulse Rate [Supine] 113 H Respiratory Rate 16 Blood Pressure 114/65 Blood Pressure [Sitting] 101/70 Blood Pressure [Supine] 129/72 O2 Sat by Pulse Oximetry 98 Laboratory Results - last 24 hr 04/03/19 04/03/19 04/03/19 21:16 21:16 21:16 WBC 16.35 H RBC 2.78 L Hgb 8.8 L Hct 27.2 L MCV 97.8 MCH 31.7 H MCHC 32.4 L RDW Std Deviation 20.8 H Plt Count 97 L MPV 9.7 Immature Gran % (Auto) 1.3 H Neut % (Auto) 86.3 H Lymph % (Auto) 5.9 L Rooks % (Auto) 5.7 Eos % (Auto) 0.6 Baso % (Auto) 0.2 Immature Gran # (Auto) 0.22 H Neut # (Auto) 14.09 H Lymph # (Auto) 0.97 L Rooks # (Auto) 0.94 H Eos # (Auto) 0.10 Baso # (Auto) 0.03 Sodium 133 L Potassium 3.3 L Chloride 91 L Carbon Dioxide 24 L Anion Gap 18 BUN 34 H Creatinine 1.5 H Estimated GFR/1.73 m2 35 BUN/Creatinine Ratio 23 Glucose 128 H Calculated Osmolality 276 Calcium 8.5 L Total Bilirubin 0.20 AST 13 ALT 6 L Alkaline Phosphatase 148 H Creatine Kinase 27 Troponin T Unu-G-Agollrcthxb Pept 437 H Total Protein 7.0 Albumin 3.5 Globulin 3.5 Albumin/Globulin Ratio 1.0 04/03/19 21:16 WBC RBC Hgb Hct MCV MCH MCHC RDW Std Deviation Plt Count MPV Immature Gran % (Auto) Neut % (Auto) Lymph % (Auto) Rooks % (Auto) Eos % (Auto) Baso % (Auto) Immature Gran # (Auto) Neut # (Auto) Lymph # (Auto) Rooks # (Auto) Eos # (Auto) Baso # (Auto) Sodium Potassium Chloride Carbon Dioxide Anion Gap BUN Creatinine Estimated GFR/1.73 m2 BUN/Creatinine Ratio Glucose Calculated Osmolality Calcium Total Bilirubin AST ALT Alkaline Phosphatase Creatine Kinase Troponin T < 0.010 Ejv-H-Disgprzsvrk Pept Total Protein Albumin Globulin Albumin/Globulin Ratio Orders Category Date Time Status Cardiac Monitoring DIRECTED Care 04/03/19 20:32 Active Orthostatic Vital Signs NOW Care 04/03/19 20:32 Active CHEST-2 VIEWS [RAD] Stat Exams 04/03/19 20:32 Completed BLOOD CULTURE [BLDCUL] Stat Lab 04/03/19 23:25 Received CBC WITH DIFF [HEME] Stat Lab 04/03/19 21:16 Completed CK PROFILE [SP CHEM] Stat Lab 04/03/19 21:16 Completed COMPREHENSIVE METABOLIC PANEL [CHEM] Stat Lab 04/03/19 21:16 Completed PRO B-NATRIURETIC PEPTIDE Stat Lab 04/03/19 21:16 Completed TROPONIN T Stat Lab 04/03/19 21:16 Completed URINALYSIS W/POSS RFLX CULT [URINALYSIS] Stat Lab 04/03/19 21:56 Ordered 0.9% Sodium Chloride Inj [Ns] 500 ml Med 04/03/19 21:43 Discontinued IV 999 mls/hr EKG [EKG] Stat Ther 04/03/19 20:32 Draft discussed plan of care with patient- she understands and agrees with plan of care and denies any questions at this time. Result Diagrams: 04/03/19 21:16 04/03/19 21:16 - XRAY 1 XRAY Study: Chest Impression: See EMR Report ( Signed EXAM: CHEST-2 VIEWS 04/03/2019 HISTORY: syncope TECHNIQUE: PA and lateral chest COMMENT: There are no previous studies. There are surgical clips in the left axilla. There is a Port-A-Cath on the right. No evidence of acute cardiac or pulmonary disease is present. There has been left mastectomy. IMPRESSION: No evidence of acute disease. Electronically signed by Phuc Suresh 04/03/2019 8:59 PM 04/03/192058 Interpreting Physician: Phuc Suresh MD Dictated Date/Time: 04/03/192057 cc: Alyssa Townsend; Domitila Cloud MD) - CONSULTS/PCP/HOSPITALIST Notification #1 *Consult/PCP/Hospitalist*: Dr. Maldonado Time Discussed: 23:40 Reason/Comments: admit for near syncope/weakness Consult Disposition: Will see in ED, Admit Departure - Departure Date of Disposition Decision: 04/03/19 Time of Disposition Decision: 23:41 DIAGNOSIS: Near syncope Disposition: ADMITTED INPATIENT 09 Certified Medical Emergency: Emergent Condition: Fair Referrals and Follow-Ups: Domitila Cloud MD [Primary Care Provider] - - Critical Care Note This patient required my direct & personal management of CC.: No Attestation - Physician/ HETAL Attestation Patient care was provided by Advanced Practice Provider:: Yes Advanced Practice Provider:: Alyssa Townsend Advanced Practice Provider documentation review:: The Mid-level provider documentation, treatment plan and medical decision making was reviewed by the physician who agrees with all treatment and medical decision making by the MLP. The physician spent face to face time with patient:: No Advanced Practice Provider documentation review:: Supervising physician onsite and consulted in the evaluation and care of this patient. The physician did not have a face to face encounter with the patient.
--- NOTE | 2019-04-03 21:01 | Diag Imaging Result Doc PS360 ---
EXAM: CHEST-2 VIEWS 04/03/2019 HISTORY: syncope TECHNIQUE: PA and lateral chest COMMENT: There are no previous studies. There are surgical clips in the left axilla. There is a Port-A-Cath on the right. No evidence of acute cardiac or pulmonary disease is present. There has been left mastectomy. IMPRESSION: No evidence of acute disease. Electronically signed by Phuc Suresh 04/03/2019 8:59 PM
[2019-04-03 21:26] LABS: BASO# 0.03 X1000 (0.0-0.2); BASO% 0.2 % (0.0-0.8); EOS% 0.6 % (0.0-10.0); HEMATOCRIT 27.2 % (37.0-47.0); HEMOGLOBIN 8.8 g/dL (12.0-16.0); IMM GRAN# 0.22 X1000 (0.0-0.04); IMM GRAN% 1.3 % (0.0-0.5); LYMPH# 0.97 X1000 (1.2-3.4); LYMPH% 5.9 % (20.5-51.1); MCH 31.7 PG (27-31); MCHC 32.4 g/dL (33-37); MCV 97.8 FL (81-99); MONO# 0.94 X1000 (0.11-0.59); MONO% 5.7 % (1.7-9.3); MPV 9.7 FL (7.4-10.4); NEUT# 14.09 X1000 (1.4-6.5); NEUT% 86.3 % (42.2-75.2); PLT 97 X1000 (130-400); RBC 2.78 XMIL (4.2-5.4); RDW 20.8 % (11.5-14.5); WBC 16.35 X1000 (4.8-10.8)
[2019-04-03 21:43] LABS: ALBUMIN 3.5 g/dL (3.5-5.0); CALCIUM 8.5 mg/dL (8.8-10.2); CREATININE 1.5 mg/dL (0.5-0.9); POTASSIUM 3.3 mmol/L (3.5-5.1); TOTAL BILIRUBIN 0.2 mg/dL (0.20-1.00)
[2019-04-03] MEDS ORDERED: NS 500 ML IV ONE (21:43)
--- NOTE | 2019-04-03 22:39 | ED EKG INTERP ---
This chart was entered by Muna Rubin Scribe, acting as scribe for Kayleigh Butterfield MD. EKG Interpretation - EKG Time of EKG reading by physician:: 20:58 EKG Read and Signed by:: Kayleigh Butterfield EKG Interpretation (*Must complete 3 of following elements*): Normal Rate: 107 Rhythm: sinus tach [place]: normal QRS: normal [place] Interval: normal ST Wave: normal Attestation - Physician/ HETAL Attestation Patient care was provided by Advanced Practice Provider:: Yes Advanced Practice Provider documentation review:: The Mid-level provider documentation, treatment plan and medical decision making was reviewed by the physician who agrees with all treatment and medical decision making by the MLP. The physician spent face to face time with patient:: No Advanced Practice Provider documentation review:: Supervising physician onsite and consulted in the evaluation and care of this patient. The physician did not have a face to face encounter with the patient. This chart was documented by the indicated scribe, (Muna Rubin Scribe) and accurately reflects the services I performed and decisions made by me, Kayleigh Butterfield MD, as attested by the provider's signature.
--- NOTE | 2019-04-03 23:20 | EKG Report ---
Test Performed on : 04/03/2019 8:56:41 PM Test Reason : syncope Blood Pressure : / mmHG Vent. Rate : 107 BPM Atrial Rate : 107 BPM P-R Int : 144 ms QRS Dur : 072 ms QT Int : 338 ms P-R-T Axes : 049 017 050 degrees QTc Int : 451 ms Sinus tachycardia. Otherwise normal ECG When compared with ECG of 23-NOV-2016 14:46, Vent. rate has increased BY 43 BPM Unconfirmed Result
[2019-04-04] MEDS ORDERED: NS 1,000 ML IV ONE (00:35)
[2019-04-04] MEDS ORDERED: ZOFRAN IV PRN (01:50)
[2019-04-04 02:52] LABS: HEMOGLOBIN A1C 4.2 % (4.8-6.0)
[2019-04-04] MEDS: NORCO-7.5 PO PRN ×3 (03:59→21:25)
[2019-04-04] MEDS: ROCEPHIN 1 GM in NS 50 ML IV SCH (03:59)
--- NOTE | 2019-04-04 04:20 | HISTORY AND PHYSICAL ---
ADDENDUM: Patient seen and examined by myself. Full note dictated and discussed with nurse practitioner. Patient has a history of breast cancer status post mastectomy and reconstruction. Apparently, reconstruction became infected. She has been going to [facility]. She received Neulasta approximately a week ago. Presented today after being at the doctor's office and felt lightheaded and felt as though she was going to pass out. She has had several days of nausea, vomiting. Blood pressures are low at 101/70 and heart rate at 108, although the family notes that this is pretty typical for her. We are going to put her in the hospital, place her on IV fluids. Urine is currently pending. If this is abnormal, we will place her on antibiotics. Her white count is 17. Expect this is more due to her Neulasta than anything. We will continue to follow and recheck in the a.m. cc: MD Michael Lowry MD
--- NOTE | 2019-04-04 05:34 | HISTORY AND PHYSICAL ---
PRIMARY CARE PROVIDER: Remedios Cloud. HISTORY OF PRESENT ILLNESS: This is a 64-year-old female who comes into the emergency room. She has known metastatic breast cancer. She has undergone a left radical mastectomy with reconstruction. I believe she had a subsequent infection which she was treated for. Her other medical history includes cervical spondylosis, diabetes mellitus type 2, metabolic syndrome, hypertension, history of shingles, hiatal hernia, hyperlipidemia, sleep apnea and chronic lymphedema on the left side secondary to the mastectomy. Today, she first went to her oncologist who decided not to give her treatment today because she had to go today at noon for wound care. During the wound care she apparently became lightheaded. Per the and patient, she has also had heavy dizziness and near syncope at home for several months related to her fentanyl patch. I believe they are in the process of weaning her off of this now. At any rate, her laboratory data was grossly normal. I believe that she received Neulasta around a week ago. She did have a mild elevation of her white blood cell count at 16,000. Patient's labs appeared also that she was fluid volume depleted. She did report nausea and vomiting recently so she will be admitted for further evaluation and treatment. PAST MEDICAL HISTORY: See HPI. PREVIOUS SURGICAL HISTORY: Right radical mastectomy with breast reconstruction, dermoid cyst removal, right-sided Port-A-Cath. SOCIAL HISTORY: . One child. 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 No tobacco. Social alcohol. No illicit drugs. FAMILY HISTORY: Father at age 74 from COPD. Mother had breast cancer with a mastectomy. I believe she is 82. ALLERGIES: Loratadine and Flonase, pseudoephedrine. HOME MEDICATIONS: Effexor, Zyrtec 10 mg p.o. b.i.d., metformin 500 mg p.o. b.i.d., Ritalin 5 p.o. b.i.d., Randolph 7.5 t.i.d., Xanax 0.25 p.o. b.i.d., fentanyl 75 mcg daily transdermally, baclofen b.i.d., Lyrica 25 mg daily. REVIEW OF SYSTEMS: Fourteen-point review of systems conducted with the patient. She was positive for dizziness, near syncope, nausea and vomiting. She denied other symptoms. All other systems were negative. PHYSICAL EXAMINATION: VITAL SIGNS: Temperature 98.8, pulse 108, respirations 16, blood pressure 114/65, oxygen saturation 98% on room air. GENERAL: Pleasant 64-year-old female lying in the ER stretcher, was alert and oriented times 3 in no acute distress. HEENT: Head is atraumatic, normocephalic. Mild alopecia noted. Pupils are equal, round, reactive to light. Extraocular eye movement is intact. NECK: Supple. No JVD. No thyromegaly. Trachea is midline. CHEST: Right breast is somewhat excoriated related to radiation burn. Left mastectomy noted. This area has been covered. It was covered by Wound Care today. No redness or drainage. CARDIAC: S1, S2 appreciated. Mildly tachycardic. No murmurs, gallops, rubs. LUNGS: Clear to auscultation bilaterally. No rhonchi, wheezes, rales. Symmetrical rise and fall with respiration. ABDOMEN: Soft, nondistended, nontender. Bowel sounds present all 4 quadrants, normoactive. No pulsatile mass. No organomegaly. EXTREMITIES: No clubbing, cyanosis or edema in the lower extremities. Left upper extremity has noted lymphedema 2 plus. GENITOURINARY: No bladder distention. Patient voids. Otherwise deferred. NEUROLOGICAL: Alert and oriented times 3. Cranial nerves 2 through 12 appear to be grossly intact. DIAGNOSTIC DATA: Chest x-ray shows no acute disease. LABORATORY DATA: WBC 16.35. Hemoglobin 8.8. Hematocrit 27.2. Platelet count 97. Sodium 133. Potassium 3.3. Chloride 91. Carbon dioxide 24. BUN 34. Creatinine 1.5. Glucose 128. ASSESSMENT AND PLAN: 1. Near syncope. Patient has fluid volume depletion. We will continue to rehydrate. I believe this was related to orthostatic hypotension. Also, it should be noted that the patient is being weaned off of her fentanyl patches as she has had long-term dizziness while on the medication. 2. Acute on chronic kidney disease, early stage 3. Patient's creatinine is 1.5. We will continue fluid repletion and recheck tomorrow. 3. Leukocytosis. This is from unknown etiology. I believe this may be related to her recent shots to help boost her white blood cell count. However, we will place on Rocephin at this time as urine samples are pending. These can be discontinued if the urine does not show any signs of a urinary tract infection. 4. Diabetes mellitus type 2. We will hold metformin at this time. We will start sliding scale insulin and fingerstick blood sugars. 5. Pain control. I am unsure exactly what dosage of fentanyl the patient is on at this time. We will give her Randolph 10 mg p.o. t.i.d. as needed for pain. Her regularly scheduled medications can be restarted tomorrow by Dr. Remedios Cloud, her primary care provider. Further recommendations per patient clinical course. Dictated by DANIELE Urban for Alfonso Maldonado MD cc: DANIELE Urban MD Jagan Reddy, MD
[2019-04-04] MEDS: HUMALOG SUBQ SCH ×4 (06:50→20:23)
[2019-04-04] MEDS: EFFEXOR XR PO SCH (08:38)
[2019-04-04] MEDS: PEPCID PO SCH ×2 (08:38→21:26)
[2019-04-04] MEDS: LOVENOX SUBQ SCH (08:38)
[2019-04-04] MEDS: MAG-OX PO SCH (08:39)
[2019-04-04] MEDS: LIORESAL PO SCH ×2 (08:39→21:25)
[2019-04-04] MEDS ORDERED: NS 50 ML ONE (14:20)
[2019-04-05] MEDS: ROCEPHIN 1 GM in NS 50 ML IV SCH (01:23)
[2019-04-05 01:40] LABS: URINE SOURCE CLEAN CATCH
[2019-04-05 02:06] LABS: BILIRUBIN URINE NEGATIVE (NEGATIVE); BLOOD URINE NEGATIVE (NEGATIVE); COLOR YELLOW; GLUCOSE URINE NEGATIVE (NEGATIVE); KETONE URINE NEGATIVE (NEGATIVE); LEUKOCYTES URINE NEGATIVE (NEGATIVE); NITRITE URINE NEGATIVE (NEGATIVE); PROTEIN URINE 70 mg/dL (NEGATIVE); SP GRAVITY URINE 1.013; TURBIDITY URINE CLEAR (CLEAR); UROBILINOGEN URINE NORMAL (NORMAL)
[2019-04-05 02:14] LABS: UR EPITHELIAL CELLS <10 /HPF (<10); URINE BACTERIA NEGATIVE /HPF; URINE RBC <10 /HPF (<10); URINE WBC <10 /HPF (<10)
[2019-04-05 02:37] LABS: URINE CASTS NONE SEEN; URINE CRYSTALS NONE SEEN; URINE SMALL ROUND CELLS NONE SEEN; URINE YEAST NONE SEEN
[2019-04-05] MEDS: HUMALOG SUBQ SCH ×4 (06:02→21:44)
[2019-04-05 06:44] LABS: BASO# 0.01 X1000 (0.0-0.2); BASO% 0.1 % (0.0-0.8); EOS# 0.05 X1000 (0.0-0.7); EOS% 0.3 % (0.0-10.0); HEMATOCRIT 24.9 % (37.0-47.0); IMM GRAN# 0.09 X1000 (0.0-0.04); IMM GRAN% 0.5 % (0.0-0.5); LYMPH# 0.98 X1000 (1.2-3.4); LYMPH% 5.5 % (20.5-51.1); MCHC 32.1 g/dL (33-37); MCV 96.5 FL (81-99); MONO# 0.76 X1000 (0.11-0.59); MONO% 4.2 % (1.7-9.3); MPV 10.1 FL (7.4-10.4); NEUT# 16.07 X1000 (1.4-6.5); NEUT% 89.4 % (42.2-75.2); PLT 94 X1000 (130-400); RBC 2.58 XMIL (4.2-5.4); RDW 20.2 % (11.5-14.5); WBC 17.96 X1000 (4.8-10.8)
[2019-04-05] MEDS ORDERED: NS 500 ML IV ONE (07:08)
[2019-04-05 07:15] LABS: CALCIUM 8.1 mg/dL (8.8-10.2); CREATININE 1.2 mg/dL (0.5-0.9); POTASSIUM 2.8 mmol/L (3.5-5.1)
[2019-04-05 07:37] LABS: BANDS 14 % (0-1); LYMPHS 6 % (21-51); SEGS 80 % (42-75)
[2019-04-05] MEDS: MAG-OX PO SCH (11:06)
[2019-04-05] MEDS: EFFEXOR XR PO SCH (11:06)
[2019-04-05] MEDS: LOVENOX SUBQ SCH (11:06)
[2019-04-05] MEDS: PEPCID PO SCH ×2 (11:07→21:46)
[2019-04-05] MEDS: LIORESAL PO SCH ×2 (11:11→21:46)
[2019-04-05] MEDS ORDERED: MAGNESIUM SULFATE 2 GM/S.W.I. 2 GM/50 ML IVPB IV ONE (13:52)
[2019-04-05] MEDS: NORCO-7.5 PO PRN ×2 (13:56→21:47)
[2019-04-05] MEDS: DURAGESIC 50 MICROGM/HR PATCH TD SCH (13:57)
[2019-04-05] MEDS: CLINIMIX E 4.25%-5% SOLUTION 1,000 ML IV SCH (13:57)
[2019-04-05] MEDS: POTASSIUM CHLORIDE 60 MEQ in NS 500 ML IV SCH ×2 (14:37→21:47)
--- NOTE | 2019-04-05 19:22 | PROGRESS NOTE ---
DATE: 04/05/2019 SUBJECT: 64-year-old white female admitted to the hospital yesterday with near syncope. The patient is well-known from the previous admission. The patient feeling dizzy and slightly confused. Interval history was reviewed, slightly improving, orthostatic. PAST MEDICAL HISTORY: Reviewed. PAST SURGICAL HISTORY: Reviewed. MEDICINES: Reviewed. ALLERGIES: Reported to Flonase. EXAMINATION: Temperature is 98 degrees. She is slightly tachycardic. Hemodynamics are stable. Blood pressure is 132/62.HEENT Exam: Awake, slightly confused, pale, anemic. Multiple bandages applied from the wound clinic on the left side of the chest, shoulder, neck. Lymphedema of the left arm noted. Port on the right side. Belly is soft, nontender. No peripheral edema or cyanosis. No obvious neurological deficits. INVESTIGATIONS: White cell count 17.96, hematocrit 24.9, platelets 94,000. Sodium 133, potassium 2.8, chloride 94, BUN 24, creatinine 1.2. TSH is 8.21. ASSESSMENT AND PLAN: 1. Near syncope, most likely orthostatic. Rule out inner ear. Continue orthostatic blood pressure. 2. Hypokalemia. Replace the potassium and magnesium. 3. Start IV Clinimix. 4. Deep venous thrombosis and gastrointestinal prophylaxis as per order sheet. 5. Anemia. Will transfuse 1 unit of packed RBC. 6. Multiple skin wounds secondary infection on the left side. We will ask Janell to change the dressing on Sunday. Continue IV ceftriaxone. 7. Chronic pain, on fentanyl patch, slowly getting back to 50 mcg and [place]. Repeat the labs in the morning. Discussed the plan of care with the at bedside. LEVEL OF DOCUMENTATION: 35 minutes. cc: Michael Cloud MD
[2019-04-06] MEDS: CLINIMIX E 4.25%-5% SOLUTION 1,000 ML IV SCH ×2 (01:43→22:39)
[2019-04-06] MEDS: ROCEPHIN 1 GM in NS 50 ML IV SCH (01:43)
[2019-04-06] MEDS: HUMALOG SUBQ SCH ×4 (06:07→22:30)
[2019-04-06 07:14] LABS: CALCIUM 7.8 mg/dL (8.8-10.2); POTASSIUM 3.4 mmol/L (3.5-5.1)
[2019-04-06 07:29] LABS: FREE T4 0.9 ng/dL (0.93-1.70)
[2019-04-06 07:30] LABS: TSH 6.58 uIUmL (0.27-4.20)
[2019-04-06 07:43] LABS: BASO# 0.01 X1000 (0.0-0.2); BASO% 0.1 % (0.0-0.8); EOS# 0.03 X1000 (0.0-0.7); EOS% 0.2 % (0.0-10.0); HEMATOCRIT 26.6 % (37.0-47.0); HEMOGLOBIN 8.3 g/dL (12.0-16.0); IMM GRAN# 0.09 X1000 (0.0-0.04); IMM GRAN% 0.7 % (0.0-0.5); LYMPH# 0.75 X1000 (1.2-3.4); LYMPH% 6.2 % (20.5-51.1); MCH 30.2 PG (27-31); MCHC 31.2 g/dL (33-37); MCV 96.7 FL (81-99); MONO# 0.49 X1000 (0.11-0.59); MONO% 4.1 % (1.7-9.3); MPV 10.1 FL (7.4-10.4); NEUT# 10.72 X1000 (1.4-6.5); NEUT% 88.7 % (42.2-75.2); PLT 88 X1000 (130-400); RBC 2.75 XMIL (4.2-5.4); RDW 19.5 % (11.5-14.5); WBC 12.09 X1000 (4.8-10.8)
[2019-04-06] MEDS ORDERED: NS 500 ML IV ONE (08:33)
[2019-04-06] MEDS ORDERED: POTASSIUM CHLORIDE 40 MEQ/SWI 40 MEQ/100 ML IVPB IV ONE (08:34)
[2019-04-06 08:56] LABS: BANDS 12 % (0-1); LYMPHS 8 % (21-51); MONO 2 % (1-9); SEGS 78 % (42-75)
[2019-04-06] MEDS: EFFEXOR XR PO SCH (09:22)
[2019-04-06] MEDS: NORCO-7.5 PO PRN ×2 (09:23→14:01)
[2019-04-06] MEDS: LIORESAL PO SCH ×2 (09:24→22:40)
[2019-04-06] MEDS: PEPCID PO SCH ×2 (09:26→22:41)
[2019-04-06] MEDS: MAG-OX PO SCH (09:26)
[2019-04-06] MEDS: LOVENOX SUBQ SCH (09:29)
--- NOTE | 2019-04-06 14:40 | Diag Imaging Result Doc PS360 ---
EXAM: SHOULDER 1 VIEW LEFT HISTORY: pain TECHNIQUE: Left shoulder single view COMPARISON: None. FINDINGS: No fracture. No dislocation. No separation at the common clavicular joint. IMPRESSION: Negative exam. Electronically signed by John Paul Yuen 04/06/2019 2:37 PM
--- NOTE | 2019-04-06 14:42 | Diag Imaging Result Doc PS360 ---
EXAM: CERVICAL SPINE 2-VIEWS HISTORY: pain TECHNIQUE: AP and lateral, three views COMPARISON: None. FINDINGS: Prominent bone spurring at C4-5. No precervical soft tissue swelling. No subluxation. IMPRESSION: Prominent degenerative changes in the lower cervical spine. Electronically signed by John Paul Yuen 04/06/2019 2:40 PM
[2019-04-06] MEDS ORDERED: NS 500 ML ONE (15:03)
--- NOTE | 2019-04-06 17:52 | PROGRESS NOTE ---
DATE: 04/06/2019 SUBJECT: The patient is little better. Transfused 1 unit of packed RBCs. Complains of left- sided pain neck and shoulder while we are weaning off fentanyl patch. EXAMINATION: Temperature is 98 degrees, pulse is 86, blood pressure stable.HEENT: Slightly pale. No jaundice. All the dressings on the left side of the chest, neck were applied. Belly: Is soft, nontender. No neurological deficits. INVESTIGATIONS: White cell count 12, hematocrit 26.6, platelets 88,000. Sodium 132, potassium 3.4, BUN 21, creatinine 1.0, glucose 139. Hemoglobin A1c 5.0. TSH is high, free T4 is low. ASSESSMENT AND PLAN: 1. Syncope probably intravascular volume dehydration, questionable inner ear. 2. Azotemia is improving. 3. Hypokalemia. Replace the potassium. 4. Hypothyroidism. Synthroid 75 mcg once daily. Continue IV Clinimix. 5. Anemia due to chemotherapy. Transfuse 1 unit of packed RBC. 6. Wound infection. IV ceftriaxone. Blood cultures were negative. 7. Anxiety/depression on Effexor 225 daily. 8. Chronic pain. Decreasing fentanyl patch, increasing [place]. 9. Deep vein thrombosis, gastrointestinal prophylaxis. 10. Continue IV Clinimix. 11. Follow up on orthostatic and repeat Labs in the morning. LEVEL OF DOCUMENTATION: 25 minutes. cc: Michael Cloud MD MTDD
[2019-04-06] MEDS: NORCO-10 PO PRN (22:41)
[2019-04-07] MEDS: ROCEPHIN 1 GM in NS 50 ML IV SCH (02:14)
[2019-04-07] MEDS: NORCO-10 PO PRN ×2 (05:54→11:59)
[2019-04-07] MEDS: SYNTHROID PO SCH (06:02)
[2019-04-07] MEDS: HUMALOG SUBQ SCH ×4 (06:02→20:59)
[2019-04-07 07:44] LABS: BASO# 0.02 X1000 (0.0-0.2); BASO% 0.2 % (0.0-0.8); EOS# 0.04 X1000 (0.0-0.7); EOS% 0.3 % (0.0-10.0); HEMATOCRIT 30.7 % (37.0-47.0); HEMOGLOBIN 9.9 g/dL (12.0-16.0); IMM GRAN# 0.06 X1000 (0.0-0.04); IMM GRAN% 0.5 % (0.0-0.5); LYMPH% 5.2 % (20.5-51.1); MCH 30.5 PG (27-31); MCHC 32.2 g/dL (33-37); MCV 94.5 FL (81-99); MONO# 0.55 X1000 (0.11-0.59); MONO% 4.8 % (1.7-9.3); MPV 10.1 FL (7.4-10.4); NEUT# 10.22 X1000 (1.4-6.5); PLT 101 X1000 (130-400); RBC 3.25 XMIL (4.2-5.4); RDW 19.9 % (11.5-14.5); WBC 11.49 X1000 (4.8-10.8)
[2019-04-07 07:54] LABS: CALCIUM 8.7 mg/dL (8.8-10.2); POTASSIUM 3.8 mmol/L (3.5-5.1)
[2019-04-07 08:32] LABS: BANDS 8 % (0-1); EOS 2 % (1-10); LYMPHS 2 % (21-51); MONO 2 % (1-9); SEGS 86 % (42-75)
[2019-04-07] MEDS: LOVENOX SUBQ SCH (08:51)
[2019-04-07] MEDS: EFFEXOR XR PO SCH (08:51)
[2019-04-07] MEDS: MAG-OX PO SCH (08:52)
[2019-04-07] MEDS: LIORESAL PO SCH ×2 (08:52→20:58)
[2019-04-07] MEDS: PEPCID PO SCH ×2 (08:52→20:58)
[2019-04-07] MEDS: CLINIMIX E 4.25%-5% SOLUTION 1,000 ML IV SCH ×2 (11:25→20:59)
--- NOTE | 2019-04-07 21:50 | PROGRESS NOTE ---
DATE: 04/07/2019 SUBJECTIVE: The patient is still a little bit sleepy, slowly improving and decreased dizziness status post 2 units of packed RBCs. Thyroid levels were low. Waiting to be seen by the cessation systems outreach specialist. We will take the pictures. The pain is slowly improving on the left side of the neck and the left upper arm. Mild lymphedema noted. OBJECTIVE: Vital signs: Temperature is 98 degrees, pulse 96. Orthostatics are stable. Slightly pale. No jaundice. Chest: Bilateral air entry. Wounds are covered with dressings. Neurologic: No neurological deficits. INVESTIGATIONS: White cell count 11, hematocrit 30.7, platelets 101,000. Sodium 133, potassium 3.8, BUN 17, creatinine 1.0, glucose 134. ASSESSMENT AND PLAN: 1. Anemia due to chemotherapy status post 2 units of packed red blood cells. 2. Thrombocytopenia, improving. 3. Chronic pain on fentanyl patch decreasing, escalating [place]. 4. Hypothyroidism, stable. 5. Diabetes off pills. A1c excellent. 6. Left upper arm lymphedema, stable. 7. We will ask the wound consult to look at the dressing. On IV ceftriaxone. 8. Prerenal azotemia is improving and currently on IV Clinimix. 9. Deep vein thrombosis and gastrointestinal prophylaxis as per order sheet and will repeat the labs in the morning. So far blood cultures are negative. Increase the ambulation. We will follow up. If she is stable, we will discharge in the next 24 hours. LEVEL OF DOCUMENTATION: 35 minutes. cc: Michael Cloud MD
[2019-04-08] MEDS: ROCEPHIN 1 GM in NS 50 ML IV SCH (04:33)
[2019-04-08] MEDS: SYNTHROID PO SCH (06:21)
[2019-04-08 07:11] LABS: BASO% 0.1 % (0.0-0.8); EOS% 0.6 % (0.0-10.0); HEMATOCRIT 32.6 % (37.0-47.0); HEMOGLOBIN 10.5 g/dL (12.0-16.0); IMM GRAN% 0.5 % (0.0-0.5); LYMPH# 0.91 X1000 (1.2-3.4); LYMPH% 8.8 % (20.5-51.1); MCH 30.6 PG (27-31); MCHC 32.2 g/dL (33-37); MONO# 0.56 X1000 (0.11-0.59); MONO% 5.4 % (1.7-9.3); MPV 9.9 FL (7.4-10.4); NEUT# 8.77 X1000 (1.4-6.5); NEUT% 84.6 % (42.2-75.2); PLT 103 X1000 (130-400); RBC 3.43 XMIL (4.2-5.4); RDW 19.8 % (11.5-14.5); WBC 10.36 X1000 (4.8-10.8)
[2019-04-08 07:12] LABS: BASO# 0.01 X1000 (0.0-0.2); EOS# 0.06 X1000 (0.0-0.7); IMM GRAN# 0.05 X1000 (0.0-0.04)
[2019-04-08] MEDS: NORCO-10 PO PRN ×3 (07:45→23:09)
[2019-04-08 07:57] LABS: AGAP 16; BUN 20 mg/dL (8-22); CHLORIDE 95 mmol/L (98-107); COSMO 269; CREATININE 0.8 mg/dL (0.5-0.9); ESTIMATED GFR > 60; GLUCOSE 130 mg/dL (70-104); POTASSIUM 3.9 mmol/L (3.5-5.1); SODIUM 132 mmol/L (136-145); TCO2 21 mmol/L (25-35)
[2019-04-08] MEDS: DURAGESIC 50 MICROGM/HR PATCH TD SCH ×2 (11:47→13:39)
[2019-04-08] MEDS: LOVENOX SUBQ SCH (11:48)
[2019-04-08] MEDS: LIORESAL PO SCH ×2 (11:48→20:57)
[2019-04-08] MEDS: MAG-OX PO SCH (11:48)
[2019-04-08] MEDS: EFFEXOR XR PO SCH (11:48)
[2019-04-08] MEDS: PEPCID PO SCH ×2 (11:49→20:57)
[2019-04-08] MEDS: CLINIMIX E 4.25%-5% SOLUTION 1,000 ML IV SCH ×2 (11:49→20:56)
--- NOTE | 2019-04-08 21:48 | PROGRESS NOTE ---
DATE: 04/08/2019 SUBJECTIVE: Wound dressings were changed. Photographs are placed in the chart as well as scanned into the EMR. Patient is slowly improving as per the , status post 2 units of packed RBCs, and the left arm pain is getting better. Dizziness is improving. The patient has been in good spirits. Pain is adequately controlled. OBJECTIVE: Vital Signs: Temperature is 98 degrees, pulse is 87, blood pressure 130/77. HEENT: Within normal limits. Neck: Supple. Chest: Wounds were redressed. Port on the right side. Abdomen: Belly is soft, nontender. Neurologic: Nonfocal. LABS: CBC: White cell count 10, hematocrit 32.6, platelets 103,000. Sodium 132, potassium 3.9, BUN 20, creatinine 0.8, glucose 130. Hemoglobin A1c 5. Blood cultures are negative. ASSESSMENT AND PLAN: 1. Near-syncope is improving. 2. Hypothyroidism, on Synthroid. 3. Anemia, status post 2 units of packed red blood cells, improved, probably from chemotherapy. 4. Thrombocytopenia is improving. 5. Diabetes, off medication. 6. Orthostatic blood pressure, stable. 7. Continue intravenous Clinimix. 8. Deep venous thrombosis and gastrointestinal prophylaxis as directed. 9. Radiation induced skin ulcers on the left side of the chest and the neck. Continue local wound care, outpatient home health care, and on intravenous ceftriaxone. 10. If she is stable, will discharge in the morning. LEVEL OF DOCUMENTATION: 25 minutes. cc: Michael Cloud MD
[2019-04-09] MEDS: ROCEPHIN 1 GM in NS 50 ML IV SCH (03:29)
[2019-04-09] MEDS: SYNTHROID PO SCH (06:23)
[2019-04-09 08:26] VITALS: BP 126/80
[2019-04-09] MEDS: PEPCID PO SCH (08:55)
[2019-04-09] MEDS: EFFEXOR XR PO SCH (08:55)
[2019-04-09] MEDS: MAG-OX PO SCH (08:55)
[2019-04-09] MEDS: LIORESAL PO SCH (08:56)
[2019-04-09] MEDS: LOVENOX SUBQ SCH (08:56)
[2019-04-09] MEDS ORDERED: LEVAQUIN PO SCH (09:00)
--- NOTE | 2019-04-10 09:44 | DISCHARGE SUMMARY ---
ADMISSION DATE: 04/03/2019 DISCHARGE DATE: 04/09/2019 DISCHARGING DIAGNOSIS: Near syncope due to dehydration. SECONDARY DIAGNOSES: 1. Anemia, thrombocytopenia due to chemotherapy. 2. Metastatic breast cancer, stage IV. 3. Radiation skin ulcers, multiple, superinfection with Staphylococcus over the left-sided chest wall, left lower shoulder and left upper neck. 4. Cervical spondylosis. 5. Metabolic syndrome. 6. Type 2 diabetes, off medication. 7. Hiatal hernia. 8. Hyperlipidemia. 9. Sleep apnea. 10. Chronic lymphedema of the left arm. 11. Hypothyroidism. BRIEF HISTORY: Please see the H and P that was done by Hospitalist. In brief, she is a 64-year- old white female, recently discharged from the hospital on 03/11/2019 for the radiation skin ulcers, seen by Dr. Quiñones, removed the breast implant, debrided. Currently under the Wound Clinic care, doing the wash followed by wet dressing. Slowly healing. She developed dizziness and near syncope, and she was found to have anemia followed by azotemia. HOSPITAL COURSE: The patient was given IV fluids, followed by renal function test came back normal. Electrolytes were replaced. She also developed hypothyroidism, elevated TSH, free T4 is low. Started on Synthroid 75 mcg daily. The patient was anemic, given 2 units of packed RBC, and she was much improved. Hemodynamics were stable. She continues to have left-sided neck pain due to spondylosis, for which the patient is already on fentanyl patches and Dow[place]. Dr. Ashley is doing the chemotherapy for underlying breast cancer. She is also going to the Wound Clinic for the skin ulcers on the left side of the chest and the neck. LABORATORY DATA: At the time of discharge, the labs as follows. White cell count 10, hematocrit 32, platelets 103,000. Sodium 132, potassium 3.9, chloride 95, BUN 20, creatinine 0.8, glucose 130. Blood cultures were negative. DISCHARGE INSTRUCTIONS: 1. Discontinue metformin since the blood sugar is doing very well. A1c 5.5. 2. Effexor 225 daily. 3. Zyrtec 10 p.o. b.i.d. 4. [place] 10 q.6 as needed. 5. Fentanyl patch 50 mcg every 3 days. 6. Magnesium oxide 1000 mg daily. 7. Baclofen 10 p.o. b.i.d. 8. Pepcid 20 mg p.o. b.i.d. 9. Synthroid 75 mcg daily. FOLLOWUP: Follow up with the wound clinic by Dr. Quiñones. Follow up for maintenance treatment for breast cancer with Dr. Ashley. She has a port on the right side. cc: MD Artemio Panchal MD R. Tyler Harney, MD
== END 2019-04-09 10:36 | disposition home health service (06) | DRG 641 ==
LOC: ED 20:00 → SUATTDRO 04-04 01:19 → 3N 04-04 01:19
PROVIDERS: ADMIT Internal Medicine; ATTEND Internal Medicine

== ENCOUNTER 2019-05-06 15:56 | Inpatient (IN) ==
--- NOTE | 2019-05-06 16:58 | PROVIDER DOCUMENTATION ---
HPI-General Adult - General Chief Complaint: Fever Stated Complaint: WEAKNESS Time Seen by Provider: 05/06/19 16:32 Source: patient, family Allergies/Adverse Reactions: Patient Allergies Allergy/AdvReac Type Severity Reaction Status Date / Time fluticasone propionate * AdvReac Mild Flu-like Verified 04/03/19 20:07 [From Flonase] symptoms loratadine [From Claritin-D] AdvReac Mild FATIGUE Verified 04/03/19 20:07 mometasone furoate AdvReac Mild Flu-like Verified 04/03/19 20:07 [From Nasonex] symptoms pseudoephedrine sulfate * AdvReac Mild FATIGUE Verified 04/03/19 20:07 [From Claritin-D] Home Medications: Home Medication List Medication Instructions Recorded Confirmed Last Taken Type Cetirizine HCl [Zyrtec] 10 mg PO BID 11/23/16 05/06/19 02/26/19 History Venlafaxine [Effexor] 225 mg PO DAILY 11/23/16 05/06/19 02/27/19 09:00 History Hydrocodone/Acetaminophen 10 mg PO TID 02/26/19 05/06/19 02/27/19 14:00 History [Hydrocodone-Acetamin 7.5-325] Magnesium Oxide [Magnesium] 1,000 mg PO DAILY 02/26/19 05/06/19 02/27/19 09:00 History Famotidine [Pepcid] 1 tab PO BID 04/04/19 05/06/19 Unknown History Baclofen 10 mg PO BID #60 tab 04/09/19 05/06/19 Unknown Rx Fentanyl 50 Microgm/Hr Patch 1 ea TD Q72H patch 04/09/19 05/06/19 Unknown Rx [Duragesic 50 Microgm/Hr Patch] Levothyroxine [Synthroid] 75 microgm PO DAILY@0700 #90 tab 04/09/19 05/06/19 Unknown Rx L.acid/L.casei/B.bif/B.jimmy/Fos 1 cap PO DAILY 05/06/19 05/06/19 Unknown History [Probiotic Blend Capsule] Potassium Chloride [Klor-Con M20] 20 meq PO DAILY 05/06/19 05/06/19 Unknown History - History of Present Illness -Gen Adult Nature of Presenting Problems: 64 YO F pmh for breast and skin CA currently on chemotherapy sent to ED by home health nurse for fever. Noticed to be 100.6 at home. Pt has been weak for the past 3 days, however she takes percocet for pain which includes tylenol. She has not noticed any fever on her own. She does have c/o diarrhea for the past week that is improving. She denies dysuria, but feels as if she has incomplete emptying of her bladder. She has been in the hospital 3 times in the past 2 months. Accompanied by her . Quality of Pain: reports: none Severity: reports: mild Onset/Duration: reports: 4-6 hours ago Timing: reports: improving Context/Activities at Onset: reports: none Modifying Factors: improves with: analgesics Associated Symptoms: reports: weakness Recently seen or treated by another doctor?: No Review of Systems - Adult - REVIEW OF SYSTEMS - ADULT Constitutional: reports: fever. denies: chills Eyes: reports: no symptoms reported Ears, Nose, Mouth & Throat: reports: no symptoms reported Cardiovascular: denies: chest pain, edema, irregular heart rate Respiratory: denies: cough, shortness of breath Gastrointestinal: reports: poor appetite, other (diarrhea) Integumentary: reports: rash, skin thickening Neurological: denies: slurred speech, syncope Psychiatric: reports: no symptoms reported Hematologic/Lymphatic: reports: no symptoms reported Past History - Adult - PAST MEDICAL HISTORY-ADULT Review of Records: reports: Old Records Reviewed, Medications Reviewed, Social history reviewed & non-contributory. Major Childhood Illnesses: reports: denies history Genitourinary: reports: cancer (breast and skin) Musculoskeletal: reports: denies history Neurological: reports: denies history Endocrine/Immune: reports: denies history - PRIOR SURGERIES/PROCEDURES Surgical/Procedure History: reports: other (mastectomy) - FAMILY HISTORY Family History: reviewed, not pertinent - SOCIAL HISTORY Smoking: denies Substance Use: denies Physical Exam-General - PHYSICAL EXAM-ADULT Initial Vital Signs Reviewed: Yes - CONSTITUTIONAL General Appearance: no apparent distress, obese, slow to respond - EYES Eyes: PERRL/EOMI - HEAD, EARS, NOSE, MOUTH & THROAT HENMT: normocephalic/atraumatic, moist mucous membranes - RESPIRATORY Respiratory: lungs clear, normal breath sounds - CARDIOVASCULAR Cardiovascular: tachycardia - GASTROINTESTINAL (ABDOMEN) Abdominal Exam: negative: distended, guarding, tenderness - MUSCULOSKELETAL Extremity: non-tender, normal inspection, normal capillary refill - SKIN Integumentary: rash, other (radiation rash on right breast and left clavicle, some bandage partially covering area) - PSYCHIATRIC Psych/Mental Status: normal mood/affect, oriented x 3 Progress - PLAN OF CARE/RESULTS Progress/Plan/Lab Results: Vital Signs - 8 hr 05/06/19 16:20 Temperature 98.6 F Pulse Rate 109 H Respiratory Rate 20 Blood Pressure 111/66 O2 Sat by Pulse Oximetry 97 Orders Category Date Time Status cxr [CHEST-1 VIEW] [RAD] Stat Exams 05/06/19 16:52 Ordered CBC WITH ELECTRONIC DIFF [HEME] Stat Lab 05/06/19 16:38 Uncollected COMPREHENSIVE METABOLIC PANEL [CHEM] Stat Lab 05/06/19 16:38 Uncollected LACTATE, PLASMA [CHEM] Stat Lab 05/06/19 16:38 Uncollected URINALYSIS W/POSS RFLX CULT [URINALYSIS] Stat Lab 05/06/19 16:51 Uncollected pt tachy, labs reviewed. started sepsis protocol. will start transfusion protocol. plan for admission. informed Dr. Flores, oncology of pt being admitted. Result Diagrams: 05/06/19 17:30 05/06/19 17:30 - XRAY 1 XRAY Study: Chest Impression: Normal - CONSULTS/PCP/HOSPITALIST Notification #1 *Consult/PCP/Hospitalist*: Dr. Adams Time Discussed: 20:24 Consult Disposition: Will see in ED Departure - Departure Date of Disposition Decision: 05/06/19 Time of Disposition Decision: 20:23 DIAGNOSIS: Anemia, Tachycardia, S/P mastectomy, Breast cancer Disposition: ADMITTED INPATIENT 09 Certified Medical Emergency: Emergent Condition: Serious Referrals and Follow-Ups: Domitila Cloud MD [Primary Care Provider] - - Critical Care Note This patient required my direct & personal management of CC.: No Attestation - Physician/ HETAL Attestation The physician spent face to face time with patient:: Yes Advanced Practice Provider documentation review:: Supervising physician onsite and consulted in the evaluation and care of this patient. The physician did have a face to face encounter with the patient.
--- NOTE | 2019-05-06 17:53 | Diag Imaging Result Doc PS360 ---
CHEST-1 VIEW - 05/06/2019 INDICATION: fever COMPARISON: 04/03/2019 FINDINGS: Stable right chest port. Stable surgical clips in the left axilla. The lungs are clear. Heart size is normal. No pneumothorax or pleural effusion. IMPRESSION: Negative exam. Electronically signed by Melecio Caraballo 05/06/2019 5:51 PM
[2019-05-06] MEDS ORDERED: NS 2,000 ML IV ONE (18:06)
[2019-05-06] MEDS ORDERED: VANCOMYCIN 1 GM/NS 1 GM/250 ML IVPB IV ONE (18:07)
[2019-05-06] MEDS ORDERED: ZOSYN 3.375 GM in NS 50 ML IV ONE (18:08)
[2019-05-06 18:12] LABS: BASO# 0.01 X1000 (0.0-0.2); BASO% 0.5 % (0.0-0.8); EOS# 0.01 X1000 (0.0-0.7); EOS% 0.5 % (0.0-10.0); HEMATOCRIT 19.3 % (37.0-47.0); HEMOGLOBIN 6.1 g/dL (12.0-16.0); LYMPH# 0.36 X1000 (1.2-3.4); LYMPH% 16.7 % (20.5-51.1); MCH 29.8 PG (27-31); MCHC 31.6 g/dL (33-37); MCV 94.1 FL (81-99); MONO# 0.42 X1000 (0.11-0.59); MONO% 19.4 % (1.7-9.3); MPV 10.4 FL (7.4-10.4); NEUT# 1.36 X1000 (1.4-6.5); NEUT% 62.9 % (42.2-75.2); PLT 86 X1000 (130-400); RBC 2.05 XMIL (4.2-5.4); RDW 18.6 % (11.5-14.5); WBC 2.16 X1000 (4.8-10.8)
[2019-05-06 18:23] LABS: AGAP 11; ALB/GLOB RATIO 0.7; ALBUMIN 2.3 g/dL (3.5-5.0); ALKALINE PHOSPHATASE 178 U/L (32-104); BUN 11 mg/dL (8-22); CHLORIDE 91 mmol/L (98-107); COSMO 246; CREATININE 0.6 mg/dL (0.5-0.9); ESTIMATED GFR > 60; GLUCOSE 118 mg/dL (70-104); GOT 13 U/L (10-30); GPT 6 U/L (10-36); POTASSIUM 5.2 mmol/L (3.5-5.1); SODIUM 122 mmol/L (136-145); TCO2 20 mmol/L (25-35); TOTAL BILIRUBIN 0.49 mg/dL (0.20-1.00); TOTAL PROTEIN 5.6 g/dL (6.3-8.3)
[2019-05-06 18:39] LABS: URINE SOURCE CATH
[2019-05-06 18:49] LABS: BILIRUBIN URINE NEGATIVE (NEGATIVE); BLOOD URINE NEGATIVE (NEGATIVE); COLOR ORANGE; GLUCOSE URINE NEGATIVE (NEGATIVE); KETONE URINE NEGATIVE (NEGATIVE); LEUKOCYTES URINE NEGATIVE (NEGATIVE); NITRITE URINE NEGATIVE (NEGATIVE); PH URINE 5.5; PROTEIN URINE 30 mg/dL (NEGATIVE); SP GRAVITY URINE 1.021; TURBIDITY URINE CLEAR (CLEAR); UROBILINOGEN URINE 2 mg/dL (NORMAL)
[2019-05-06 18:50] LABS: UR EPITHELIAL CELLS <10 /HPF (<10); URINE BACTERIA NEGATIVE /HPF; URINE RBC <10 /HPF (<10); URINE WBC <10 /HPF (<10)
[2019-05-06 20:40] LABS: INR 1.2; PROTIME 15.4 Seconds (11.0-16.0)
[2019-05-06 20:41] LABS: PTT 39.8 Seconds (22.3-41.8)
--- NOTE | 2019-05-06 21:58 | Diag Imaging Result Doc PS360 ---
CT HEAD W/O CONTRAST - 05/06/2019 INDICATION: confusion COMPARISON: None FINDINGS: The ventricles and sulci are normal in size and contour. There is mild patchy cerebral white matter lucency compatible with chronic microvascular disease. No intracranial mass or hemorrhage. The skull is intact. The sinuses, mastoids, and middle ears are clear. IMPRESSION: Chronic microvascular disease of cerebral white matter. No acute process. This exam was performed using automated exposure control, adjustment of mA or kV according to patient size, and/or use of iterative reconstruction technique Electronically signed by Melecio Caraballo 05/06/2019 9:55 PM
[2019-05-06] MEDS ORDERED: NS 1,000 ML IV ONE (23:00)
[2019-05-06] MEDS ORDERED: PEPCID PO SCH (23:22)
[2019-05-06] MEDS ORDERED: VANCOMYCIN IV PER PHARMACY MISC SCH (23:22)
[2019-05-06] MEDS ORDERED: TYLENOL PO PRN (23:22)
[2019-05-06] MEDS ORDERED: ZOFRAN IV PRN (23:22)
[2019-05-06 23:52] LABS: RETIC% 1.28 % (0.8-2.1); RETIC-HE 29.2 PG (28.2-36.6)
[2019-05-06 23:56] LABS: URIC ACID 3.9 mg/dL (2.4-5.7)
--- NOTE | 2019-05-07 00:12 | HISTORY AND PHYSICAL ---
PRIMARY CARE PHYSICIAN: Patient of Dr. Ashley and Dr. Vito Cloud. REASON FOR ADMISSION: A 2- to 3-day history of confusion and 1-day history of fever. HISTORY OF PRESENT ILLNESS: The patient is an unfortunate 64-year-old woman with a past medical history of metastatic breast cancer, cervical spondylosis, hypertension, prior history of shingles, hyperlipidemia, sleep apnea, and type 2 diabetes. She comes in at the behest of the home health nurse who noticed that she had a temperature of 100.6. Prior to the home health nurse's visit, the patient had been feeling very weak over the weekend and received 2 L of fluid which according to the pepped her up. However, he has noticed that over the last 2 days she has been more confused and having visual hallucinations. The patient is not a good historian, because she is a little drowsy. She states that she has chronic pain that she has in the neck and chest wall. She denies any other complaints. No cough or shortness of breath. The patient and report that since Sunday when she had her last chemotherapy, she mentioned having copious amounts of nonbloody and nonmucoid diarrhea. Admits to having some nausea but no vomiting. No abdominal pain per se. No genitourinary discomfort. No focal neurological complaints. No neck stiffness. No polyuria or polydipsia. No new onset of rash or arthralgia. REVIEW OF SYSTEMS: A 12-system review was done through the and the patient. Positive findings per above. ALLERGIES: Loratadine and nasal steroids and pseudoephedrine. HOME MEDICATIONS: Patient is on baclofen 10 mg b.i.d., Zyrtec 10 mg b.i.d., famotidine 20 mg b.i.d., fentanyl 50 mcg q.72, [place] 10 t.i.d., probiotic once daily, levothyroxine 75 mcg daily, potassium 20 mEq daily, Effexor 225 mg daily, magnesium 1000 mg daily. SURGICAL HISTORY: Patient has had right radical mastectomy with bilateral breast reconstruction. She developed an implant infection, and this was removed in February of this year. Had dermoid cyst removal. Right-sided Port-A-Cath was placed. SOCIAL HISTORY: . Does not smoke, drink, or use illicit drugs. FAMILY HISTORY: Notable for COPD and breast cancer in mother. No heart disease. LABORATORY WORK: White count 2,000 Platelets 86,000 with normal neutrophil count. Sodium is down from 132 sodium a month ago. Bicarb was 20, BUN 11, creatinine 0.6. Glucose 118. Calcium 8. Albumin 2.3. Total protein 5.6. Lactate 2.1. Urinalysis is grossly normal. The chest film showed was negative exam. PHYSICAL EXAMINATION: VITAL SIGNS: Blood pressure is 116/66, heart rate 109, respirations 18temperature 98.6. GENERAL: She is an overweight, middle-aged woman who is slightly drowsy but oriented to person, place, and time. She is in mild distress. Has a sad affect in mild distress presumably from pain . HEENT: Head is normocephalic, atraumatic. Eyes, JAMIE, EOMI. She is anicteric. Mildly pale. No nystagmus. No icterus. ENT and oropharynx exam is notable for moderate xerostomia but no oropharyngeal exudate. NECK: Supple. She had a heavy dressing on the left side of her neck. I did not remove this. CHEST: Anteriorly showed Mediport on the right pectoral area with clean and dry dressing around there. No surrounding erythema or exudation around the port. However, distal to that area around the breast area is eczematous-looking area of tiny chronic ulcerations. Skin slightly indurated. On the left side, there is a deep healing wound/ulcer with a clean base. No exudation noted. No surrounding erythema. Measures about 4 x 5 cm. Beneath that, there is a linear ulceration which has a clean base, too. No exudation or erythema. She has a heavy dressing on the left side of her chest wall extending to the back. I did not remove this dressing. It was dry and clean. CARDIOVASCULAR: First and 2nd sounds heard. No gallops, murmurs, rubs. ABDOMEN: Protuberant, soft, nontender. Bowel sounds hypoactive , no masses. EXTREMITIES: The patient has lymphedema 2 to 3+ on the left upper extremity. She has trace edema of both lower extremities. Distal pulses full, regular, symmetrical. No clubbing or peripheral cyanosis . SKIN: Pale. Slightly warm to touch. For other notable findings, please see above. MUSCULOSKELETAL: Grossly normal . IMPRESSION: 1. Fever. The patient with pancytopenia and borderline neutropenia. 2. Hyponatremia. 3. Metabolic encephalopathy likely secondary to hyponatremia . 4. Pancytopenia. 5. Metastatic breast cancer. 6. Hypothyroidism. PLAN: In light of the patient's borderline neutropenia and documented fever and active chemotherapy treatment, it will be prudent to put this patient on broad-spectrum antibiotics. Source at this time is yet to be determined. She does have open wounds on other areas other than the left pectoral area I examined. Tomorrow is when she is due for her dressing changes. I will cover broadly for gram-positive and gram-negative. These were taken down. If there is any evidence of infection, wound cultures should be taken. If there is no evidence of infection and patient still continues to spike a fever, we recommend CT thorax to rule out intrathoracic process. For now, continue with vancomycin and Maxipime. The patient will be transfused 2 units of packed red blood cells. Her sodium level will be closely monitored every 6 hours while on normal saline. This to avoid over-correction and the patient being at the risk of having ODS We will consult with Dr. Ashley to see patient tomorrow for further input. Sodium workup will also be done and please follow outstanding labs. Because patient has hyponatremia and slight hyperkalemia, random cortisol should be drawn also. cc: MD Dr. Vito Corrigan MD Jagan Reddy, MD [facility]
[2019-05-07 00:27] LABS: LDH 71 U/L (135-214); TOTAL IRON 7 ug/dL (49-151)
[2019-05-07] MEDS: MAXIPIME 2 GM in NS 100 ML IV SCH ×2 (00:34→12:24)
[2019-05-07] MEDS: NS 1,000 ML IV SCH ×3 (01:25→21:03)
[2019-05-07 02:44] LABS: URINE SOURCE CLEAN CATCH
[2019-05-07 02:52] LABS: BILIRUBIN URINE NEGATIVE (NEGATIVE); BLOOD URINE NEGATIVE (NEGATIVE); COLOR YELLOW; GLUCOSE URINE NEGATIVE (NEGATIVE); KETONE URINE NEGATIVE (NEGATIVE); LEUKOCYTES URINE NEGATIVE (NEGATIVE); NITRITE URINE NEGATIVE (NEGATIVE); PH URINE 5.5; PROTEIN URINE TRACE mg/dL (NEGATIVE); SP GRAVITY URINE 1.018; TURBIDITY URINE CLEAR (CLEAR); UROBILINOGEN URINE NORMAL (NORMAL)
[2019-05-07 02:54] LABS: UR EPITHELIAL CELLS <10 /HPF (<10); URINE BACTERIA NEGATIVE /HPF; URINE RBC <10 /HPF (<10); URINE WBC <10 /HPF (<10)
[2019-05-07] MEDS ORDERED: VANCOMYCIN 1,150 MG in NS 250 ML IV ONE (03:00)
[2019-05-07 04:16] LABS: URINE CASTS NONE SEEN; URINE CRYSTALS NONE SEEN; URINE SMALL ROUND CELLS NONE SEEN; URINE YEAST NONE SEEN
[2019-05-07] MEDS: SYNTHROID PO SCH (06:16)
[2019-05-07] MEDS: MAGNESIUM GLUCONATE PO SCH (08:18)
[2019-05-07] MEDS: KLOR-CON PO SCH (08:18)
[2019-05-07] MEDS ORDERED: NORCO-7.5 PO SCH (09:00)
[2019-05-07] MEDS: NORCO-5 PO PRN ×2 (09:58→21:03)
[2019-05-07] MEDS: LOVENOX SUBQ SCH (09:58)
[2019-05-07] MEDS: PROTONIX IV SCH (10:01)
[2019-05-07 11:31] LABS: AGAP 13; ALB/GLOB RATIO 0.6; ALBUMIN 1.8 g/dL (3.5-5.0); ALKALINE PHOSPHATASE 137 U/L (32-104); BUN 14 mg/dL (8-22); CALCIUM 7.6 mg/dL (8.8-10.2); CHLORIDE 97 mmol/L (98-107); COSMO 254; CREATININE 0.7 mg/dL (0.5-0.9); ESTIMATED GFR > 60; GLUCOSE 107 mg/dL (70-104); GOT 14 U/L (10-30); GPT 5 U/L (10-36); MAGNESIUM 1.6 mg/dL (1.5-2.7); POTASSIUM 5.1 mmol/L (3.5-5.1); SODIUM 126 mmol/L (136-145); TCO2 16 mmol/L (25-35); TOTAL BILIRUBIN 2.78 mg/dL (0.20-1.00)
[2019-05-07 12:01] LABS: BASO# 0.01 X1000 (0.0-0.2); BASO% 0.3 % (0.0-0.8); EOS# 0.03 X1000 (0.0-0.7); EOS% 0.8 % (0.0-10.0); HEMATOCRIT 24.9 % (37.0-47.0); HEMOGLOBIN 8.2 g/dL (12.0-16.0); LYMPH# 0.41 X1000 (1.2-3.4); LYMPH% 10.8 % (20.5-51.1); MCH 29.8 PG (27-31); MCHC 32.9 g/dL (33-37); MCV 90.5 FL (81-99); MONO# 0.61 X1000 (0.11-0.59); MPV 10.3 FL (7.4-10.4); NEUT# 2.75 X1000 (1.4-6.5); NEUT% 72.1 % (42.2-75.2); PLT 78 X1000 (130-400); RBC 2.75 XMIL (4.2-5.4); RDW 17.8 % (11.5-14.5); WBC 3.81 X1000 (4.8-10.8)
[2019-05-07 12:46] LABS: BANDS 30 % (0-1); LYMPHS 14 % (21-51); MONO 8 % (1-9); SEGS 48 % (42-75)
[2019-05-07] MEDS ORDERED: DILAUDID IV ONE (13:28)
[2019-05-07] MEDS: VANCOMYCIN 1,700 MG in NS 250 ML IV SCH ×2 (13:49→15:27)
[2019-05-07] MEDS ORDERED: MISC. PHARMACY COMMUNICATION SCH (15:15)
--- NOTE | 2019-05-07 19:36 | INFECTIOUS DISEASE CONSULT REP ---
DATE: 05/07/2019 CONCLUSION: The patient has a gram-positive coccal bacteremia. I think the bacteremia originates from the patient's right-sided Port-A-Cath. The patient also has diarrhea. RECOMMENDATIONS: I agree with treating with vancomycin. I have discontinued cefepime. I suggest having the Port-A-Cath removed. I have put in a consult for Dr. Chicho Narayanan to remove the Port- A-Cath. I am going to check for Clostridium difficile. DISCUSSION: The patient, approximately 2 to 3 days ago, became weak. She also had an altered mental status and fever. Both of her blood cultures are growing gram-positive cocci. The patient's chest x-ray shows clear lung malagon. CT scan of the head shows no acute disease. There is some microvascular disease of the white matter present. The patient's CBC shows a white count of 3810, hemoglobin 8.2, and platelet count 78,000. Creatinine is 0.7. GFR is greater than 60. Urinalysis showed no white cells or bacteria. Both blood cultures are growing gram-positive cocci. Culture from the patient's left arm is pending. PAST MEDICAL HISTORY AND REVIEW OF SYSTEMS: I did ask the patient some of the questions, but she was unable to answer them well, so most of the review of systems came from the patient's . He told me that over the past 18 months, the patient has lost 100 pounds. Her hearing and vision seem to be okay. The patient also had complained of pain at the site of the Port-A-Cath. The patient also has had diarrhea. The patient had not been complaining of any swollen joints or muscle aching, but she was very weak, especially when she started chemotherapy. 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 PREVIOUS HOSPITALIZATIONS: The patient has had a left radical mastectomy with breast reconstruction. She had an infection in that area and that was removed by Dr. Quiñones. She has had a dermoid cyst removed. She has had a right-sided Port-A-Cath placed by Dr. Chicho Narayanan. MEDICAL DISEASES: Positive for metastatic breast cancer. The patient has the patient has hypothyroidism. She at one time had hypertension, hyperlipidemia, sleep apnea, and type 2 diabetes, but the said after she lost 100 pounds, she does not have any of those illnesses that I just mentioned. INFECTIOUS DISEASE HISTORY: Positive for UTI. FAMILY HISTORY: Positive for cancer and hypertension. SOCIAL HISTORY: The patient is . She lives in [place] with her . She rarely drinks an alcoholic beverage. She does not smoke cigarettes or use illicit drugs. ALLERGIES: According to the , the patient has no allergies except for a nasal spray. However, on the chart, it shows that the patient is allergic to Flonase as I mention. Also to Claritin and Nasonex and Claritin-D. HOME MEDICATIONS: Consistent of the following: Baclofen, Zyrtec, Pepcid, Duragesic, hydrocodone, Synthroid, magnesium, potassium, and Effexor. PHYSICAL EXAMINATION: Vital signs: Temperature is 98.1 degrees, pulse 98, respirations 21, blood pressure 132/64. The patient is 5 feet 7 inches tall, weighs 191 pounds. General: This is an ill-appearing middle-aged female. She is in no acute distress. Head/eyes/ears/nose/throat: She can hear my spoken words and see near objects. There is no drainage from the nose or ears. I did not see any white patches in the patient's mouth. Neck: No meningismus. Lungs: Clear to auscultation. Cardiovascular: Heart rate is regular. Thorax: The patient has a Port-A-Cath on the right side. It is swollen and tender. On the left side, she has a dressing over where she had suffered some radiation farias. Abdomen: Soft and nontender. Neurologic: Patient is awake she can move her extremities. There is no tremor. Her memory regarding her medical history was decreased and it was very difficult for her to make a complete sentences. Integument: No rash noted. Thank you for the consult. cc: MD Michael Wilson MD
--- NOTE | 2019-05-07 22:49 | PROGRESS NOTE ---
DATE: 05/07/2019 SUBJECTIVE: A 64-year-old white female was admitted last night with altered mental status, fever and pancytopenia. The patient is well known to me from the previous admissions. She was discharged from the hospital on 04/09/2019. The patient is confused. She complains of diarrhea. No family is around. The patient is receiving second unit of packed RBCs. Interval H and P was reviewed. REVIEW OF SYSTEMS: None reported. PAST MEDICAL HISTORY: Reviewed. Past surgical history reviewed. ALLERGIES: Reported to fluticasone, steroids and loratadine. OBJECTIVE: Temperature is 98 degrees. Hemodynamics are stable, 95% on room air. She still has the dressings applied on the left side of the chest and the neck. Port present on the right side. Belly is soft and nontender. No obvious neurological deficits. LABORATORY DATA: CBC: White cell count 3.8, hematocrit 24.9, platelets 78,000. Sodium 136, potassium 5.1, BUN 14, creatinine 0.7, glucose 106, bilirubin 2.78, albumin 1.8. Urinalysis is clear. Blood cultures x2 reported gram-positive cocci. ASSESSMENT AND PLAN: 1. Pancytopenia due to recent chemotherapy for metastatic breast cancer. 2. Hematological support as needed for blood transfusion. 3. Thrombocytopenia, stable. 4. Deep venous thrombosis prophylaxis with Lovenox. 5. Gastrointestinal prophylaxis with intravenous proton pump inhibitor, with Protonix. 6. Diarrhea. Rule out Clostridium difficile. Dr. Moss has ordered Clostridium difficile. 7. Gram-positive sepsis identified on culture and sensitivity. Dr. Moss reported it is primarily due to infected Port-A-Cath. Dr. Narayanan and group, Dr. Quiñones consulted to remove the port. 8. Hypothyroidism, on Synthroid. 9. Hiatal hernia. Continue on intravenous Protonix. 10. Gram-positive bacteremia, currently on vancomycin. 11. For pain control, the patient is already on fentanyl patch and we will use the [place]. 12. I did appreciate Dr. Moss and Dr. Quiñones. We will follow up on the labs in the morning. 13. Hyponatremia. Continue intravenous fluids. 14. Reactive depression. Needs selective serotonin reuptake inhibitors and low dose of Ritalin. We will follow up. Level of documentation 35 minutes. cc: Michael Cloud MD
[2019-05-08] MEDS: DILAUDID IV PRN ×3 (01:42→15:26)
[2019-05-08] MEDS: VANCOMYCIN 1,700 MG in NS 250 ML IV SCH (03:28)
[2019-05-08] MEDS: NS 1,000 ML IV SCH ×3 (03:28→21:01)
[2019-05-08] MEDS: NORCO-5 PO PRN ×2 (03:58→21:02)
--- NOTE | 2019-05-08 04:26 | GENERAL SURGERY CONSULTATION ---
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 She is known to me for wound care. She is end-stage of her disease, undergoing palliative chemotherapy. Had a port placed by Dr. Narayanan at the time of her diagnosis 5 years ago. She was admitted for pancytopenia and found to have bacteremia with gram- positive cocci x2 blood cultures. I have been consulted for port removal. MEDICAL HISTORY: Breast carcinoma. SURGICAL HISTORY: She has had bilateral mastectomies with explant of her left implant, and debridement of necrotic wounds. She also has had a latissimus flap and a right internal jugular vein port. SOCIAL HISTORY: No tobacco, alcohol, or drugs. She has attentive family. FAMILY HISTORY: Reviewed noncontributory REVIEW OF SYSTEMS: Ten point review of systems negative other than HPI. OBJECTIVE: Vital signs: She is afebrile. Pulse 99, blood pressure 119/58, oxygen saturation is 94%. General: She is chronically ill-appearing female in no acute distress. HEENT: No scleral icterus. Cardiovascular: Normal rate. Pulmonary: No increased work of breathing. Integument: There is extensive dressings of her left neck and chest. Peripheral vascular: She has a right-sided port with some edema, but no cellulitis. Abdomen: Soft, nontender. Psychiatric: Appropriate affect. Neurologic: No gross deficits. LABS: White count is 3, hematocrit 24, platelets 78,000. Creatinine is 0.7. Sodium is low at 126. ASSESSMENT/PLAN: A 64-year-old female with metastatic breast carcinoma. She has gram-positive bacteremia related to a port and needs port removal. We discussed risks and benefits. She understands and consents. I also recommended excision and debridement of her wounds under anesthesia, as she has quite a lot of pain associated with this. We will make her n.p.o. and plan to take to the operating room tomorrow. We also discussed the possibility of central line placement, although she does have a good peripheral at this time. cc: MD Michael Bloom MD [facility]
[2019-05-08 08:11] LABS: HEMOGLOBIN 8.6 g/dL (12.0-16.0); MCH 29.9 PG (27-31); MCHC 31.9 g/dL (33-37); MCV 93.8 FL (81-99); MPV 10.7 FL (7.4-10.4); RBC 2.88 XMIL (4.2-5.4); RDW 18.7 % (11.5-14.5); WBC 4.5 X1000 (4.8-10.8)
[2019-05-08 08:30] LABS: AGAP 13; ALB/GLOB RATIO 0.5; ALBUMIN 1.8 g/dL (3.5-5.0); ALKALINE PHOSPHATASE 137 U/L (32-104); BUN 13 mg/dL (8-22); CHLORIDE 98 mmol/L (98-107); COSMO 256; CREATININE 0.8 mg/dL (0.5-0.9); ESTIMATED GFR > 60; GLUCOSE 83 mg/dL (70-104); GOT 11 U/L (10-30); GPT 6 U/L (10-36); POTASSIUM 4.9 mmol/L (3.5-5.1); SODIUM 128 mmol/L (136-145); TCO2 17 mmol/L (25-35); TOTAL BILIRUBIN 0.75 mg/dL (0.20-1.00); TOTAL PROTEIN 5.6 g/dL (6.3-8.3)
[2019-05-08] MEDS: DURAGESIC 50 MICROGM/HR PATCH TD SCH (10:00)
[2019-05-08] MEDS: PROTONIX IV SCH (10:00)
[2019-05-08] MEDS: SODIUM CHLORIDE 0.9% INJ SCH (10:00)
[2019-05-08] MEDS ORDERED: XYLOCAINE-MPF 2% ONE ×2 (10:42→11:05)
[2019-05-08] MEDS ORDERED: DIPRIVAN 1% ONE ×2 (10:42→11:05)
[2019-05-08] MEDS ORDERED: ROBINUL ONE (11:05)
[2019-05-08] MEDS ORDERED: SENSORCAINE 0.25%/EPI 1:200,000 ONE (11:16)
[2019-05-08] MEDS ORDERED: XYLOCAINE 1% ONE (11:17)
[2019-05-08] MEDS: DILAUDID ONE ×2 (13:06→13:12)
--- NOTE | 2019-05-08 13:20 | Diag Imaging Result Doc PS360 ---
EXAM: CHEST-PORTABLE INDICATION: post port placement TECHNIQUE: One view COMPARISON: 05/06/2019 FINDINGS: There is a newly placed right IJ line. The tip projects over the region of the atriocaval junction. There is no discrete pleural fluid collection or pneumothorax. The cardiomediastinal silhouette and central vasculature are grossly unremarkable. IMPRESSION: Recent placement of right IJ line as described with no evidence of pneumothorax postplacement. Electronically signed by Guido Kennedy 05/08/2019 1:18 PM
--- NOTE | 2019-05-08 13:36 | INFECTIOUS DISEASE PROGRESS NO ---
DATE: 05/08/2019 PRESENT ILLNESS: The patient has a gram-positive coccal bacteremia which I think originated from her infected right-sided Port-A-Cath. The patient also has Clostridium difficile diarrhea. MEDICATIONS: The patient is on IV and p.o. vancomycin. PHYSICAL EXAMINATION: Vital Signs: Temperature is 98 degrees, pulse 91, respirations 23, blood pressure is 118/59. General: This is an ill-appearing, middle-aged female. She is sleeping today. Head, Eyes, Ears, Nose, and Throat: No drainage noted from the nose or the ears. Neck: No resistance to movement of her neck. Lungs: Clear to auscultation. Cardiovascular: Heart rate is regular. Thorax: The patient's Port-A-Cath on the right side is swollen and it was tender when I touched it yesterday. The patient's left side of her upper chest shows radiation changes. I did not see any erythema or purulence. Abdomen: Soft and nontender. Neurologic: The patient was sleeping today. There is no tremor. LAB AND X-RAY: I did not see any CBC or BMP back yet today. The patient's Clostridium difficile toxin and antigen are both positive blood cultures. IMPRESSION: Both blood cultures are growing gram-positive cocci. ASSESSMENT AND PLAN: The patient has a bacteremia originating from her Port-A-Cath. I plan to continue vancomycin pending the final identification of the organism. Also today, Dr. Quiñones is taking the patient to surgery at which time he will remove the patient's Port-A-Cath and also debride the patient's wounds on the left side of the chest where she has had radiation treatment. The patient is going to get vancomycin IV for the bacteremia and vancomycin p.o. for her Clostridium difficile diarrhea. COMORBIDITIES: The patient has metastatic breast cancer. She also is a diabetic. cc: MD Michael Wilson MD
[2019-05-08] MEDS: LOVENOX SUBQ SCH (15:56)
[2019-05-08] MEDS: VANCOCIN PO SCH ×3 (15:57→21:02)
[2019-05-08] MEDS: KLOR-CON PO SCH (15:58)
[2019-05-08] MEDS: SYNTHROID PO SCH (15:59)
[2019-05-08] MEDS: MAGNESIUM GLUCONATE PO SCH (15:59)
--- NOTE | 2019-05-08 21:36 | OPERATIVE NOTE ---
PROCEDURE DATE: 05/08/2019 POSTOPERATIVE DIAGNOSES: 1. History of metastatic breast cancer. 2. Necrotic wounds to her left chest. 3. Bacteremia. PROCEDURE PERFORMED: 1. Right port removal. 2. Ultrasound-guided right internal jugular vein central line placement. 3. Excisional debridement of left chest wound down to the level of the muscle. Left chest is 30 x 15 cm, and left neck 9 x 4 cm. SPECIMENS: None. ANESTHESIA: General. FINDINGS: 1. Compressible internal jugular vein on the right. 2. There was a well encapsulated port with no purulence. 3. Extensive wounds to the left chest and neck with fibrinous tissue in the bed and some necrotic skin. OPERATIVE NOTE: Risks, benefits, and alternatives were discussed. Patient consented to the procedure. Seen preoperatively and surgical site was confirmed. She was taken to the operating room and placed supine position. General anesthesia induced without complication. All bony prominences were padded. Her bilateral neck and chest were prepped. We excluded the left chest wound. We made an incision after time-out over the previous port site and removed this in its entirety, holding pressure in the neck. After noting hemostasis, a focused ultrasound of the right neck was performed in Trendelenburg position. We accessed the vein on first pass. Dark, nonpulsatile venous blood was noted on return. The wire threaded easily. Skin aubrey was made. The tract was dilated and a 7-Uzbek triple lumen catheter, that was preflushed, was advanced and secured. All ports withdrew blood and flushed without resistance. She did have some ectopy that resolved after removal of the wire, confirming our position in the right side of the heart. A dressing was applied at this point, and these incisions were then excluded. Her port removal site was closed with 3-0 Vicryl suture loosely to allow ongoing drainage. Using a curette, scissors, and forceps, we debrided her left chest wound down to the level of muscle back to healthy bleeding tissue. These were extensive and there was dermal and lymphatic confirmed invasive carcinoma in these locations, but we did this purely for hygienic type purposes. We then lightly debrided her left neck wound as well. The left chest was 30 x 15 cm down to the pectoralis and even rib in some places, and the left neck was 9 x 4 cm. She tolerated it well. Dressings were reapplied, Vasche dressings. She will be transferred to Recovery. I spoke with the family. cc: MD Michael Bloom MD
--- NOTE | 2019-05-08 22:14 | PROGRESS NOTE ---
DATE: 05/08/2019 SUBJECTIVE: The patient is confused. Appreciated Dr. Quiñones and Dr. Candido Moss. Interval history was reviewed. The patient did receive 2 units of packed RBC and she has 2 gram-positive cocci in the blood. Wound culture is gram-negative jazmine. Stool has C. difficile toxin positive. OBJECTIVE: Temperature is 97 degrees, pulse 82. Vitals are stable. The confusion is within normal limits. Multiple dressings noted on the left side of the chest. Belly is soft, nontender. Good bowel sounds. No neurological deficits. INVESTIGATIONS: CBC: White cell count 4.5, hematocrit 27, platelets 78,000. Sodium 138, potassium 4.9, chloride 98, BUN 13, creatinine 0.8. LFTs are coming down. Microbiology cultures, blood cultures are positive, gram-positive cocci. Clostridium difficile toxin antigen positive. Wound cultures, gram-negative rods. ASSESSMENT AND PLAN: 1. Pancytopenia due to chemotherapy. Hematological support as needed. 2. Hyponatremia due to dehydration. Intravenous fluids. 3. Infected Port-A-Cath due to gram-positive cocci. Dr. Quiñones is going to remove the port and place the central line or PICC line for the IV access. 4. Clostridium difficile diarrhea from antibiotic-associated colitis. Continue on Vancocin 250 mg p.o. q.6 and IV vancomycin for gram-positive infection. 5. Continue IV fluids for hyponatremia. 6. Hypothyroidism, on Synthroid. 7. Deep vein thrombosis prophylaxis with Lovenox. 8. Altered mental status due to delirium. CT of head was negative. 9. Metastatic breast cancer. Stable. Localized wound infection on the chest wall, gram-negative rods. Will follow up. LEVEL OF DOCUMENTATION: 35 minutes. I appreciate all of the consultants. cc: Michael Cloud MD
[2019-05-09] MEDS: NS 1,000 ML IV SCH ×4 (02:03→21:48)
[2019-05-09] MEDS: VANCOCIN PO SCH ×4 (02:39→20:18)
[2019-05-09] MEDS: SYNTHROID PO SCH ×3 (05:28→07:15)
[2019-05-09] MEDS ORDERED: VANCOMYCIN 1,700 MG in NS 250 ML IV SCH (06:00)
[2019-05-09 06:04] LABS: HEMATOCRIT 26.3 % (37.0-47.0); HEMOGLOBIN 8.4 g/dL (12.0-16.0); MCV 91.3 FL (81-99); RBC 2.88 XMIL (4.2-5.4); WBC 6.97 X1000 (4.8-10.8)
[2019-05-09 06:05] LABS: MCH 29.2 PG (27-31); MCHC 31.9 g/dL (33-37); MPV 10.1 FL (7.4-10.4); RDW 18.6 % (11.5-14.5)
[2019-05-09 06:14] LABS: AGAP 11; ALKALINE PHOSPHATASE 151 U/L (32-104); BUN 15 mg/dL (8-22); CALCIUM 7.4 mg/dL (8.8-10.2); CHLORIDE 101 mmol/L (98-107); COSMO 258; CREATININE 0.6 mg/dL (0.5-0.9); ESTIMATED GFR > 60; GLUCOSE 74 mg/dL (70-104); GOT 14 U/L (10-30); GPT 5 U/L (10-36); POTASSIUM 4.6 mmol/L (3.5-5.1); SODIUM 129 mmol/L (136-145); TCO2 17 mmol/L (25-35); TOTAL BILIRUBIN 0.41 mg/dL (0.20-1.00); TOTAL PROTEIN 4.1 g/dL (6.3-8.3)
[2019-05-09] MEDS: DILAUDID IV PRN ×3 (06:52→19:22)
[2019-05-09] MEDS: KLOR-CON PO SCH (08:16)
[2019-05-09] MEDS ORDERED: NS 500 ML IV ONE (08:16)
[2019-05-09] MEDS: NORCO-5 PO PRN ×3 (08:16→21:23)
[2019-05-09] MEDS: MAGNESIUM GLUCONATE PO SCH (08:16)
[2019-05-09] MEDS: CULTURELLE PO SCH (08:16)
[2019-05-09] MEDS: LOVENOX SUBQ SCH (08:17)
[2019-05-09] MEDS: SODIUM CHLORIDE 0.9% INJ SCH (13:31)
[2019-05-09] MEDS: PROTONIX IV SCH (13:31)
[2019-05-09] MEDS: CUBICIN 500 MG in NS 100 ML IV SCH (16:19)
[2019-05-09] MEDS: MAXIPIME 2 GM in NS 100 ML IV SCH ×2 (16:19→23:47)
--- NOTE | 2019-05-09 20:55 | PROGRESS NOTE ---
DATE: 05/09/2019 SUBJECTIVE: The patient is a little better. Confusion is improving. INTERVAL HISTORY: Port was taken out. Right IJ central line was placed, and the patient is slightly improved. REVIEW OF SYSTEMS: None reported. Pain is adequately controlled. OBJECTIVE: On exam, temperature is 98 degrees, pulse 96, blood pressure 133/62. HEENT exam: Alopecia noted. Slightly pale. Right IJ central line noted. Left chest wall wound dressings are applied. Bilateral air entry. Belly is soft, nontender. Lymphedema of the left arm noted. No peripheral edema. LABORATORY DATA: CBC: White cell count 6.9, hematocrit 26, platelets 91,000. Sodium 129, potassium 4.6, chloride 101, BUN 15, creatinine 0.6, glucose 74, calcium 7.4. Liver function tests were normal. ASSESSMENT AND PLAN: 1. Gram-positive septicemia due to Staphylococcus epidermidis. Continue on intravenous vancomycin. Discontinue the port. 2. Status post central line on the right internal jugular. 3. Pancytopenia due to recent chemotherapy for metastatic breast cancer. Hematological support, transfusion of 1 unit of packed red blood cells. 4. Deep venous thrombosis and gastrointestinal prophylaxis as per order sheet. 5. Hyponatremia due to dehydration, improving. Continue intravenous fluids. 6. Clostridium difficile diarrhea. Continue on p.o. vancomycin and Culturelle. 7. Pain is controlled with present medications. 8. Apparently Dr. Candido Moss changed the medicine daptomycin, Vancocin and cefepime. Repeat the labs in the morning. Continue present treatment until Sunday. We will reassess the situation. Level of documentation 25 minutes. cc: Michael Cloud MD
--- NOTE | 2019-05-09 22:26 | INFECTIOUS DISEASE PROGRESS NO ---
DATE: 05/09/2019 PRESENT ILLNESS: The patient has a Staph epidermidis bacteremia, which I think originated from her Port-A-Cath, which has been removed. She also has Clostridium difficile diarrhea and she also has a gram-negative jazmine infection of her chest wall infection. MEDICATIONS: The patient is on vancomycin IV and p.o. PHYSICAL EXAMINATION: Vital Signs: Temperature is 98.4 degrees, pulse 96, respirations 20, blood pressure 143/75. General: This is an ill-appearing, middle-aged female. She is alert. She is in no acute distress. Head, eyes, ears, nose and throat: There is no drainage from her nose or ears. She does not have any white coating on her tongue. Neck: Patient has a right internal jugular catheter in place. The site is not erythematous or swollen. Thorax: The patient had her Port-A-Cath removed. There is a dressing covering the Port-A-Cath site. The left side of the patient's chest was debrided by Dr. Quiñones of Surgery. There is a large dressing covering that. Lungs: Clear to auscultation. Cardiovascular: Regular heart rate. Abdomen: Soft and not tender. Neurologic: The patient is alert. She can move her extremities. There is no tremor. LAB AND RADIOLOGY: The patient's chest x-ray does not show any pneumothorax. There is no mention made of any infiltrate. The patient's blood cultures are growing Staph epidermidis. The EDIE of the organism to vancomycin is 2, which predicts failure. The culture from the patient's left chest wound is growing gram-negative rods. The CBC shows a white count of 6970, hemoglobin 8.4, and platelet count 91,000. Creatinine is 0.6. GFR is greater than 60. The alkaline phosphatase is 151. The patient's stool is positive for both Clostridium difficile toxin and antigen. The left chest wound is growing a gram-negative jazmine. ASSESSMENT AND PLAN: Since the patient's Staph organism has an EDIE of 2 for vancomycin, this predicts that there will be failure. Therefore, I have discontinued vancomycin and I will start the patient on daptomycin. I am also going to start the patient on cefepime to treat the gram- negative jazmine infection of her left chest. The patient already is getting vancomycin p.o. for her Clostridium difficile diarrhea. Next week, I am going to get a CBC, a BMP, and a CK. COMORBIDITIES: The patient has metastatic breast cancer and diabetes. cc: MD Michael Wilson MD
[2019-05-10] MEDS: VANCOCIN PO SCH ×4 (01:21→20:16)
[2019-05-10] MEDS: DILAUDID IV PRN ×3 (01:26→11:16)
[2019-05-10] MEDS: SYNTHROID PO SCH (06:29)
[2019-05-10] MEDS: NS 1,000 ML IV SCH ×2 (06:29→16:35)
[2019-05-10 06:35] LABS: HEMOGLOBIN 9.4 g/dL (12.0-16.0); MCH 29.9 PG (27-31); MCHC 32.4 g/dL (33-37); MCV 92.4 FL (81-99); MPV 9.9 FL (7.4-10.4); RBC 3.14 XMIL (4.2-5.4); RDW 18.9 % (11.5-14.5); WBC 6.01 X1000 (4.8-10.8)
[2019-05-10 06:53] LABS: AGAP 11; ALB/GLOB RATIO 0.6; ALBUMIN 1.8 g/dL (3.5-5.0); ALKALINE PHOSPHATASE 299 U/L (32-104); BUN 14 mg/dL (8-22); CALCIUM 7.3 mg/dL (8.8-10.2); CHLORIDE 102 mmol/L (98-107); COSMO 261; CREATININE 0.6 mg/dL (0.5-0.9); ESTIMATED GFR > 60; GLUCOSE 102 mg/dL (70-104); GOT 42 U/L (10-30); GPT 16 U/L (10-36); POTASSIUM 4.4 mmol/L (3.5-5.1); SODIUM 130 mmol/L (136-145); TCO2 17 mmol/L (25-35); TOTAL BILIRUBIN 0.55 mg/dL (0.20-1.00); TOTAL PROTEIN 4.7 g/dL (6.3-8.3)
[2019-05-10] MEDS: CULTURELLE PO SCH (08:02)
[2019-05-10] MEDS: KLOR-CON PO SCH (08:02)
[2019-05-10] MEDS: LOVENOX SUBQ SCH (08:02)
[2019-05-10] MEDS: MAXIPIME 2 GM in NS 100 ML IV SCH ×3 (08:03→23:03)
[2019-05-10] MEDS: MAGNESIUM GLUCONATE PO SCH (08:03)
[2019-05-10] MEDS: NORCO-5 PO PRN ×2 (08:18→21:16)
[2019-05-10] MEDS: PROTONIX IV SCH (11:16)
--- NOTE | 2019-05-10 14:41 | PROGRESS NOTE ---
DATE: 05/10/2019 SUBJECTIVE: The patient says she is very sore where she has had a debridement on her anterior chest. She seems to be growing out Pseudomonas aeruginosa there. Infectious Disease has seen her for antibiotics. She is still having some diarrhea. Has had some trouble sleeping. OBJECTIVE: Vital signs: Blood pressure is 149/70, respirations 16, pulse 99 and regular, temperature 97.5 degrees Fahrenheit. HEENT: She is normocephalic. EOMS intact. PERRLA. Throat clear. Chest: She is managed now for the debridement on her chest. Heart: Regular rate and rhythm without murmurs, gallops, or friction rubs. Abdomen: Soft. Active bowel sounds. No organomegaly or tenderness. Neurological: Intact grossly. She had some confusion before but does not seem confused at all today. ASSESSMENT: 1. Staphylococcus epidermidis sepsis. 2. Status post central line on the right, internal jugular placement. 3. Pancytopenia due to recent chemotherapy for metastatic breast cancer. 4. Hyponatremia, improving. 5. Clostridium difficile diarrhea, on p.o. vancomycin. 6. Skin infection. PLAN: Continue current care. She has had a little trouble sleeping. We will get a sleeping pill for her if she does not already have one. cc: MD Michael Rodriguez Jr, MD
[2019-05-10] MEDS: CUBICIN 500 MG in NS 100 ML IV SCH (16:12)
[2019-05-11] MEDS: DILAUDID IV PRN ×3 (00:14→23:23)
[2019-05-11] MEDS: VANCOCIN PO SCH ×4 (01:02→19:55)
[2019-05-11] MEDS: NS 1,000 ML IV SCH ×3 (02:35→23:18)
[2019-05-11] MEDS: NORCO-5 PO PRN ×3 (03:29→20:00)
[2019-05-11] MEDS: SYNTHROID PO SCH (06:05)
[2019-05-11] MEDS: MAGNESIUM GLUCONATE PO SCH (09:26)
[2019-05-11] MEDS: KLOR-CON PO SCH (09:27)
[2019-05-11] MEDS: MAXIPIME 2 GM in NS 100 ML IV SCH ×3 (09:27→23:18)
[2019-05-11] MEDS: PROTONIX IV SCH (09:27)
[2019-05-11] MEDS: LOVENOX SUBQ SCH (09:27)
[2019-05-11] MEDS: DURAGESIC 50 MICROGM/HR PATCH TD SCH (09:27)
[2019-05-11] MEDS: CULTURELLE PO SCH (09:27)
--- NOTE | 2019-05-11 13:34 | PROGRESS NOTE ---
DATE: 05/11/2019 SUBJECTIVE: The patient has no complaints. She slept better taking Ambien last night. OBJECTIVE: Vital signs: Vital signs are stable. Blood pressure is 129/71, respirations 17, pulse 81, temperature 97.7 degrees Fahrenheit. HEENT: She is normocephalic. Intact PERRLA. Throat clear. Lungs: Clear to auscultation and percussion without rhonchi, rales, or wheezes. Heart: Regular rate and rhythm without murmurs, gallops, or friction rubs. Abdomen: Soft. Active bowel sounds. No organomegaly or tenderness. Her chest wall wounds are dressed at this time. I did not take the dressing off. ASSESSMENT: 1. Staphylococcus epidermidis sepsis. 2. Status post central line infection and now with internal jugular placement. 3. Pancytopenia from chemotherapy. 4. Hyponatremia, improving. 5. Clostridium difficile diarrhea, on p.o. vancomycin. 6. Skin infection. PLAN: Continue support. The patient is on antibiotics. cc: MD Michael Rodriguez Jr, MD
[2019-05-11] MEDS: CUBICIN 500 MG in NS 100 ML IV SCH (15:21)
[2019-05-12] MEDS: VANCOCIN PO SCH ×4 (01:30→20:17)
[2019-05-12] MEDS: DILAUDID IV PRN ×5 (02:40→21:40)
[2019-05-12] MEDS: NORCO-5 PO PRN ×2 (04:31→12:15)
[2019-05-12 06:09] LABS: BASO# 0.02 X1000 (0.0-0.2); BASO% 0.3 % (0.0-0.8); EOS# 0.03 X1000 (0.0-0.7); EOS% 0.5 % (0.0-10.0); HEMATOCRIT 30.6 % (37.0-47.0); HEMOGLOBIN 9.6 g/dL (12.0-16.0); IMM GRAN# 0.25 X1000 (0.0-0.04); IMM GRAN% 3.8 % (0.0-0.5); LYMPH# 0.67 X1000 (1.2-3.4); LYMPH% 10.2 % (20.5-51.1); MCH 29.3 PG (27-31); MCHC 31.4 g/dL (33-37); MCV 93.3 FL (81-99); MONO% 7.6 % (1.7-9.3); MPV 9.6 FL (7.4-10.4); NEUT# 5.13 X1000 (1.4-6.5); NEUT% 77.6 % (42.2-75.2); PLT 72 X1000 (130-400); RBC 3.28 XMIL (4.2-5.4); RDW 18.9 % (11.5-14.5)
[2019-05-12 06:13] LABS: CHLORIDE 106 mmol/L (98-107); POTASSIUM 3.7 mmol/L (3.5-5.1); SODIUM 133 mmol/L (136-145); TCO2 15 mmol/L (25-35)
[2019-05-12 06:14] LABS: AGAP 12; BUN 10 mg/dL (8-22); CALCIUM 7.3 mg/dL (8.8-10.2); CK TOTAL 15 U/L (24-173); COSMO 266; CREATININE 0.7 mg/dL (0.5-0.9); ESTIMATED GFR > 60; GLUCOSE 102 mg/dL (70-104)
[2019-05-12] MEDS: SYNTHROID PO SCH (06:32)
[2019-05-12] MEDS: MAXIPIME 2 GM in NS 100 ML IV SCH (08:45)
[2019-05-12] MEDS: MAGNESIUM GLUCONATE PO SCH (08:46)
[2019-05-12] MEDS: PROTONIX IV SCH ×2 (08:46→09:02)
[2019-05-12] MEDS: CULTURELLE PO SCH (08:48)
[2019-05-12] MEDS: KLOR-CON PO SCH (08:48)
[2019-05-12] MEDS: LOVENOX SUBQ SCH (08:48)
[2019-05-12] MEDS: CLINIMIX E 4.25%-5% SOLUTION 1,000 ML IV SCH ×2 (08:48→20:17)
[2019-05-12] MEDS ORDERED: TOBRAMYCIN IV PER PHARMACY MISC SCH (14:45)
[2019-05-12] MEDS: CUBICIN 500 MG in NS 100 ML IV SCH (15:30)
[2019-05-12] MEDS: MERREM 2 GM in NS 100 ML IV SCH ×2 (15:30→23:01)
[2019-05-12] MEDS ORDERED: TOBRAMYCIN IV SCH (17:00)
[2019-05-12] MEDS ORDERED: NS IV SCH (17:00)
--- NOTE | 2019-05-12 20:16 | INFECTIOUS DISEASE PROGRESS NO ---
DATE: 05/12/2019 PRESENT ILLNESS: The patient has a Staph epidermidis bacteremia, a Pseudomonas left upper arm wound and Clostridium difficile diarrhea. MEDICATIONS: Currently the patient is on a combination of cefepime, daptomycin, vancomycin and vancomycin p.o. PHYSICAL EXAMINATION: Vital Signs: Temperature is 97.6 degrees, pulse 99, respirations 25, blood pressure 143/70. General: This is an ill-appearing middle-aged female. She is in no acute distress. Head/eyes/ears/nose/throat: She can hear my spoken words and see near objects. She does not have any white coating on her tongue. Neck: The patient has a right-sided jugular vein catheter in place. The site is not erythematous or bleeding. Thorax: The patient had a Port-A- Cath removed. The Port-A-Cath site not bleeding or purulent. The patient's left chest has a large dressing on it where her chest was debrided. Lungs: Clear to auscultation. Cardiovascular: Regular heart rate. Abdomen: Soft and nontender. Neurologic: The patient is alert. She can move her extremities. There is no tremor. LAB AND X-RAY: There is no new radiographic study. CBC shows a white count of 6600, hemoglobin 9.6, and platelet count 72,000. Creatinine is 0.7. GFR is greater than 60. The patient's blood culture grew Staph epidermidis. The patient's wound grew a multiply drug-resistant Pseudomonas. It is only susceptible on the testing panel to aminoglycoside antibiotics namely tobramycin, gentamicin, and amikacin. ASSESSMENT AND PLAN: As regarding the patient's Staph bacteremia, I am going to be treating with a combination of daptomycin and rifampin. As regarding the patient's Clostridium difficile diarrhea, I will be continuing vancomycin p.o. As regarding the patient's Pseudomonas chest and arm infection, I am starting the patient on a combination of meropenem and tobramycin. I have requested the microbiology lab to send the Pseudomonas isolate for susceptibility testing to meropenem and Avycaz. COMORBIDITIES: The patient has metastatic breast cancer and diabetes. cc: MD Michael Wilson MD
[2019-05-12] MEDS: AMBIEN PO PRN (21:40)
[2019-05-13] MEDS: DILAUDID IV PRN ×5 (01:45→21:42)
[2019-05-13] MEDS: VANCOCIN PO SCH ×4 (01:45→20:46)
[2019-05-13] MEDS: SYNTHROID PO SCH (06:16)
[2019-05-13] MEDS: MERREM 2 GM in NS 100 ML IV SCH ×3 (06:16→23:29)
--- NOTE | 2019-05-13 07:26 | PROGRESS NOTE ---
DATE: 05/12/2019 SUBJECTIVE: The patient is a little better. is at bedside. Events noted over the weekend, multiple bacterial infection. Right now we will hold all the chemotherapy. Requesting for physical therapy as well as rehab placement. REVIEW OF SYSTEMS: No headache, no chest pain, shortness of breath. PHYSICAL EXAMINATION: Vital signs: Temperature is 98 degrees, pulse 97, blood pressure is 146/71, 99% on room air. HEENT: Within normal limits. Neck: Supple. Chest: Bilateral air entry. Heart: Sounds are regular. Abdomen: Belly is soft, nontender. No peripheral edema. Neurologic: No neurological deficits. INVESTIGATIONS: 1. CBC: White cell count 6.6, hematocrit 30, platelets 72,000. Sodium 133, potassium 3.7, chloride 106, BUN 10, creatinine 0.7. CK was 15 pancytopenia due to chemotherapy, improving. Hematological support. The patient did receive 3 units of packed RBCs. 2. Hyponatremia, better. 3. Nutrition. Changing it to Clinimix. 4. Out of the bed with physical therapy. 5. Clostridium difficile colitis, on p.o. vancomycin. 6. Staphylococcal epidermidis, methicillin-resistant. Continue on daptomycin and rifampin. 7. Pseudomonas infection, on meropenem. 8. Hypothyroidism, on Synthroid. I appreciate Dr. Moss' input. Continue to monitor. LEVEL OF DOCUMENTATION: 25 minutes. cc: Michael Cloud MD [facility]
[2019-05-13] MEDS: NORCO-5 PO PRN ×3 (08:17→20:48)
[2019-05-13] MEDS: MAGNESIUM GLUCONATE PO SCH (08:19)
[2019-05-13] MEDS: PROTONIX IV SCH ×2 (08:19→12:33)
[2019-05-13] MEDS: CULTURELLE PO SCH (08:19)
[2019-05-13] MEDS: KLOR-CON PO SCH (08:19)
[2019-05-13] MEDS: CLINIMIX E 4.25%-5% SOLUTION 1,000 ML IV SCH ×4 (08:20→23:20)
[2019-05-13] MEDS: LOVENOX SUBQ SCH (08:20)
--- NOTE | 2019-05-13 08:22 | GENERAL SURGERY PROGRESS NOTE ---
DATE: 05/12/2019 SUBJECTIVE: No complaints. She overall feels some better. Dressing changes are going okay. No fevers. No tachycardia. She does continue to have diarrhea. OBJECTIVE: Dressings are intact. Her central line is in place. No cellulitis. LABORATORY DATA: I reviewed her labs. White count 6, hematocrit 30, creatinine 0.7. ASSESSMENT: Female with metastatic gastric cancer. She had bacteremia related to port infection. It was removed. Central line was placed. She also has Clostridium difficile in chronic wounds. Continue local wound care. We will continue to follow along with patient. cc: MD Michael Bloom MD
[2019-05-13] MEDS ORDERED: DURAGESIC 50 MICROGM/HR PATCH TD ONE (13:50)
[2019-05-13] MEDS: CUBICIN 500 MG in NS 100 ML IV SCH (15:28)
--- NOTE | 2019-05-13 15:50 | INFECTIOUS DISEASE PROGRESS NO ---
DATE: 05/13/2019 PRESENT ILLNESS: Ms. Charles is being treated for a Staph epidermidis bacteremia, left upper arm and chest Pseudomonas, and a Clostridium difficile diarrhea. MEDICATIONS: She is receiving daptomycin 500 mg IV every 24 hours, Meropenem 2 g IV every 8 hours, IV tobramycin per pharmacy dosing, Rifampin 600 mg by mouth daily and oral vancomycin 250 mg every 6 hours. PHYSICAL EXAMINATION: Vital Signs: Temperature is 98.6 degrees, pulse rate 109, respiratory rate 17, blood pressure 123/70, O2 saturations 100% on room air. General: This is an obese, chronically ill-appearing female. She is lying in bed, currently in no acute distress. HEENT: Atraumatic, normocephalic. Oral mucous membranes are pink and moist. Conjunctivae are pale. Neck: Has a decrease in suppleness. Trachea is midline. Respiratory: Lung sounds are clear to auscultation bilaterally. Cardiovascular: Heart rate and rhythm are regular and fast, sinus tach noted on the monitor. Abdomen: Soft, obese, nontender. Bowel sounds are active. Integumentary: There is a right intra jugular triple-lumen catheter in place. That site is without edema, erythema, or drainage. She has dressings to her left chest as well as her left neck and her previous Port-A-Cath site on the right. Those dressings are intact. She does have some exposed skin with abrased and discolored areas. The wound to her left chest has a very foul odor. Neurologic: She is awake, alert, and oriented. Able to move all extremities in the bed with some significant decrease in mobility of the left upper extremity which has 3 to 4+ pitting edema due to lymphedema. LABORATORY AND X-RAY: None available today. ASSESSMENT AND PLAN: Ms. Charles is being treated for a Staphylococcus epidermidis bacteremia using daptomycin and rifampin, which we will continue. We will go ahead and have repeat blood cultures drawn this afternoon which will hopefully make today day 1 of treatment as long as they are sterile. She also has a multi drug-resistant Pseudomonas noted to her left upper arm wound and she is receiving tobramycin and meropenem for that which we will continue. Also there is a C. difficile diarrhea. The patient states her diarrhea is better today. She has only had one episode. We will continue the oral vancomycin as long she is on antibiotics and probably for several days thereafter to make sure it does not reoccur. Dr. Moss has already called the [facility] in order to determine susceptibilities to meropenem and Avycaz for the Pseudomonas isolate, and we are awaiting those results. These plans have been discussed with and recommended by Dr. Moss. COMORBIDITIES: For Ms. Charles include that she is obese with metastatic breast cancer and diabetes mellitus. Dictated by DANIELE Joe for Candido Moss MD cc: MD Michael Wilson MD [facility]TDD
[2019-05-13] MEDS: RIFAMPIN PO SCH (20:46)
--- NOTE | 2019-05-13 21:37 | PROGRESS NOTE ---
DATE: 05/13/2019 SUBJECTIVE: The patient is a little better. Interval history was reviewed. A lot of lymphedema in the left upper extremity, swelling of the left neck. Janell is going to change the wound dressings on the chest wall. Central line on the right side of neck noted. Port was removed. I appreciate Dr. Candido Moss' input. No chest pain, shortness of breath. OBJECTIVE: Temperature is 98 degrees. Tachycardic. Vitals are stable. A lot of swelling on the left side of the face. Multiple chest infections covered with bandages. Physical exam, no change. INVESTIGATIONS: None reported. ASSESSMENT AND PLAN: 1. Clostridium difficile colitis, on p.o. vancomycin, improving. Continue on Culturelle. 2. Staphylococcus epidermidis bacteremia, for which port was removed. Continue Cubicin 500 IV q.12 and rifampin 600 p.o. every 24 hours. 3. Pseudomonas infection in the wound. Currently, receiving tobramycin as per the pharmacy protocol, meropenem IV q.8. 4. Hypothyroidism. Synthroid. 5. Deep vein thrombosis and gastrointestinal prophylaxis as per order sheet. 6. Continue IV PPN and out of the bed with physical therapy. 7. Specialized Developer for possible disposition to rehab versus LTAC. 8. Lymphedema treatment. The patient is going to bring the machine from home. Hold the chemotherapy for metastatic breast cancer. Altered mental status improving. Pain is adequately controlled with fentanyl patch and hydrocodone. LEVEL OF DOCUMENTATION: 25 minutes. cc: Michael Cloud MD [facility]TD[facility]
[2019-05-13] MEDS: MELATONIN PO PRN (21:42)
[2019-05-13] MEDS: AMBIEN PO PRN (21:42)
[2019-05-14] MEDS: DILAUDID IV PRN ×6 (01:46→22:23)
[2019-05-14] MEDS: VANCOCIN PO SCH ×4 (01:47→20:03)
[2019-05-14] MEDS: TOBRAMYCIN IV SCH (05:34)
[2019-05-14] MEDS: NS IV SCH (05:34)
[2019-05-14] MEDS: MERREM 2 GM in NS 100 ML IV SCH ×3 (06:40→23:27)
[2019-05-14] MEDS: CLINIMIX E 4.25%-5% SOLUTION 1,000 ML IV SCH ×4 (06:40→23:28)
[2019-05-14] MEDS: SYNTHROID PO SCH (06:41)
[2019-05-14] MEDS: NORCO-5 PO PRN ×3 (06:41→20:02)
[2019-05-14] MEDS ORDERED: WELCHOL PO ONE (08:12)
[2019-05-14] MEDS: PROTONIX IV SCH (08:16)
[2019-05-14] MEDS: CULTURELLE PO SCH (08:17)
[2019-05-14] MEDS: LOVENOX SUBQ SCH (08:17)
[2019-05-14] MEDS: KLOR-CON PO SCH (08:17)
[2019-05-14] MEDS: MAGNESIUM GLUCONATE PO SCH (08:41)
[2019-05-14] MEDS: WELCHOL PO SCH ×2 (08:42→20:02)
--- NOTE | 2019-05-14 15:13 | INFECTIOUS DISEASE PROGRESS NO ---
DATE: 05/14/2019 PRESENT ILLNESS: The patient has Staph epidermidis bacteremia, left chest and arm multidrug- resistant Pseudomonas and Clostridium difficile diarrhea. MEDICATIONS: The patient is on daptomycin and rifampin for the Staph bacteremia and she is on meropenem and tobramycin for the multidrug-resistant Pseudomonas. The patient is receiving oral vancomycin for the Clostridium difficile diarrhea. PHYSICAL EXAMINATION: Vital Signs: Temperature is 98.5 degrees, pulse 110, respirations 29, blood pressure is 128/73. General: This is an obese, chronically ill-appearing female. She is in no acute distress. Head, eyes, ears, nose, and throat: She can hear my spoken words and see near objects. I do not see any white coating on her tongue. Neck: No pain with movement. Patient has an internal jugular catheter in place. The site is not erythematous or draining. Thorax: The patient's site where she had a Port-A-Cath is healing well. That was on the right side. The left side has a dressing on it. There is a lot of crusting tissue on the patient's left chest area. There also are some deeper wounds where the skin was removed. Lungs: Clear to auscultation. Cardiovascular: Heart rate is regular. Abdomen: Soft and nontender. Neurologic: The patient is alert. She can move her extremities. There is no tremor. Extremities: There is edema of the left arm and legs but no erythema. LAB AND X-RAY: There are no lab studies for today and there is no new radiographic study for today either. The patient's CK is 15, but that was from 2 or 3 days ago. ASSESSMENT AND PLAN: The patient has Staph bacteremia, a Pseudomonas infection of her left chest, and Clostridium difficile diarrhea. I plan to continue the current antimicrobial agents. The patient's blood cultures are still pending. COMORBIDITIES: The patient has metastatic breast cancer. She also is a diabetic. cc: MD Michael Wilson MD MTDD
[2019-05-14] MEDS: CUBICIN 500 MG in NS 100 ML IV SCH (16:03)
--- NOTE | 2019-05-14 22:03 | PROGRESS NOTE ---
DATE: 05/14/2019 SUBJECTIVE: Patient has been in good spirits. Continues to have loose bowel movements. Lymphedema treatment applied on the left arm. Patient able to go to the bathroom with assistance. Family was at bedside. REVIEW OF SYSTEMS: None reported other than diarrhea. PHYSICAL EXAMINATION: Temperature is 98.1 degrees, pulse 100, blood pressure is 122/69. HEENT within normal limits. Wounds are not dressing yet. Chronic lymphedema on the left arm. IJ on the right side of the neck noted. No neurological deficits. INVESTIGATIONS: None reported. ASSESSMENT AND PLAN: 1. Clostridium difficile diarrhea, on oral vancomycin. We will start on Welchol. 2. Multidrug resistant Pseudomonas, on meropenem and tobramycin. 3. Staphylococcus epidermidis, on rifampin and daptomycin, and Dr. Moss is going to check the labs in the morning. 4. Continue lymphedema treatment, left leg. 5. Deep venous thrombosis and gastrointestinal prophylaxis as per order sheet. 6. Continue Clinimix. 7. Hypothyroidism, on Synthroid. LEVEL OF DOCUMENTATION: 25 minutes. cc: Michael Cloud MD
[2019-05-14] MEDS: AMBIEN PO PRN (22:23)
[2019-05-14] MEDS: RIFAMPIN PO SCH (22:23)
[2019-05-14] MEDS: MELATONIN PO PRN (22:24)
[2019-05-15] MEDS: DILAUDID IV PRN ×5 (02:36→21:49)
[2019-05-15] MEDS: VANCOCIN PO SCH ×4 (02:36→23:31)
[2019-05-15] MEDS: MERREM 2 GM in NS 100 ML IV SCH ×3 (06:27→23:31)
[2019-05-15 06:30] LABS: BASO# 0.02 X1000 (0.0-0.2); BASO% 0.3 % (0.0-0.8); EOS# 0.08 X1000 (0.0-0.7); EOS% 1.1 % (0.0-10.0); HEMATOCRIT 27.8 % (37.0-47.0); HEMOGLOBIN 8.8 g/dL (12.0-16.0); IMM GRAN# 0.11 X1000 (0.0-0.04); IMM GRAN% 1.5 % (0.0-0.5); LYMPH# 0.89 X1000 (1.2-3.4); LYMPH% 12.2 % (20.5-51.1); MCH 29.2 PG (27-31); MCHC 31.7 g/dL (33-37); MCV 92.4 FL (81-99); MONO# 0.48 X1000 (0.11-0.59); MONO% 6.6 % (1.7-9.3); MPV 9.1 FL (7.4-10.4); NEUT# 5.71 X1000 (1.4-6.5); NEUT% 78.3 % (42.2-75.2); PLT 65 X1000 (130-400); RBC 3.01 XMIL (4.2-5.4); RDW 18.5 % (11.5-14.5); WBC 7.29 X1000 (4.8-10.8)
[2019-05-15 06:34] LABS: AGAP 11; BUN 18 mg/dL (8-22); CALCIUM 7.9 mg/dL (8.8-10.2); CHLORIDE 102 mmol/L (98-107); CK TOTAL 12 U/L (24-173); COSMO 272; CREATININE 0.5 mg/dL (0.5-0.9); ESTIMATED GFR > 60; GLUCOSE 104 mg/dL (70-104); POTASSIUM 4.2 mmol/L (3.5-5.1); SODIUM 135 mmol/L (136-145); TCO2 22 mmol/L (25-35)
[2019-05-15] MEDS: SYNTHROID PO SCH (06:38)
[2019-05-15] MEDS ORDERED: NS 500 ML IV ONE (07:40)
[2019-05-15] MEDS: PROTONIX IV SCH (08:56)
[2019-05-15] MEDS: LOVENOX SUBQ SCH (08:57)
[2019-05-15] MEDS: KLOR-CON PO SCH (08:58)
[2019-05-15] MEDS: CULTURELLE PO SCH (09:01)
[2019-05-15] MEDS: MAGNESIUM GLUCONATE PO SCH (09:01)
[2019-05-15] MEDS: WELCHOL PO SCH ×2 (09:01→21:48)
[2019-05-15] MEDS: CLINIMIX E 4.25%-5% SOLUTION 1,000 ML IV SCH ×2 (10:30→21:59)
[2019-05-15] MEDS: NORCO-5 PO PRN (14:42)
--- NOTE | 2019-05-15 15:23 | INFECTIOUS DISEASE PROGRESS NO ---
DATE: 05/15/2019 PRESENT ILLNESS: The patient has a Staph epidermidis bacteremia, left chest and arm multidrug resistant Pseudomonas infection and Clostridium difficile diarrhea. MEDICATIONS: The patient is on daptomycin for 6 days now, rifampin for 2 days, meropenem for 3 days and tobramycin for 1 day and rifampin for 2 days. Patient also is taking vancomycin p.o., and this is day 7 of treatment with p.o. vancomycin. PHYSICAL EXAMINATION: Vital Signs: Temperature is 98.4 degrees, pulse 99, respirations 20, blood pressure 124/70. General: This is an obese ill-appearing elderly female. She is in no acute distress. Head/eyes/ears/nose/throat: She can hear my spoken words and see near objects. She does not have any white patches in her mouth. Neck: No pain with movement. The patient has an internal jugular vein catheter in place. The site is not erythematous or purulent. Thorax: The patient's site where she had a poor Port-A-Cath which was removed is not erythematous or tender. Lungs: Clear to auscultation. Cardiovascular: Heart rate is regular. Abdomen: Soft and nontender the. Extremities: The patient has left arm and leg edema but no erythema. Neurologic: The patient is alert she can move her extremities. There is no tremor. LAB AND X-RAY: There is no radiographic study for today. The CBC shows a white count of 7290, hemoglobin 8.8, and platelet count 65,000. Creatinine is 0.5. GFR is greater than 60. The patient's Pseudomonas isolette has been sent for susceptibility testing to Avycaz and meropenem. Unfortunately the susceptibility studies are sent to another facility and it may take 1 to 2 weeks before the susceptibility study is back. ASSESSMENT AND PLAN: The patient has a bacteremia and a left chest and arm infection and Clostridium difficile diarrhea. I plan to continue her current antibiotics consisting of daptomycin, meropenem, and tobramycin and rifampin. COMORBIDITIES: Metastatic breast cancer and diabetes mellitus. cc: MD Michael Wilson MD
[2019-05-15] MEDS: CUBICIN 500 MG in NS 100 ML IV SCH (15:42)
[2019-05-15] MEDS: TOBRAMYCIN IV SCH (16:36)
[2019-05-15] MEDS: NS IV SCH (16:36)
[2019-05-15] MEDS: AMBIEN PO PRN (21:48)
[2019-05-15] MEDS: RIFAMPIN PO SCH (21:48)
[2019-05-15] MEDS: MELATONIN PO PRN (21:49)
--- NOTE | 2019-05-15 22:15 | PROGRESS NOTE ---
DATE: 05/15/2019 SUBJECTIVE: The patient is doing better, getting out of the bed. Family is exploring to go to [facility]. REVIEW OF SYSTEMS: None reported. PHYSICAL EXAMINATION: Vital Signs: Temperature is 98.4, pulse 96, blood pressure 125/63, 99% on room air. HEENT: Within normal limits. Wounds are dressed up. Central line on the right IJ. Abdomen: Belly is soft, nontender. No obvious deficits. INVESTIGATIONS: CBC: White cell count 7.2, hematocrit 27.8, platelets 65. Sodium 135, potassium 4.2, chloride 102, BUN 18, creatinine 0.5. ASSESSMENT AND PLAN: 1. The patient is still anemic. We will keep the hematocrit above 30. Transfusion of 1 unit of packed red blood cells. 2. Diarrhea due to Clostridium difficile. Repeat Clostridium difficile toxin was negative. Continue on Welchol and Culturelle. Repeat blood culture on 05/13 was negative. 3. Staph epidermidis due to infected port, stable. 4. Central line on the right internal jugular, stable. Continue IV total parenteral nutrition. 5. Drug resistant Pseudomonas as per Dr. Moss. Currently on meropenem and tobramycin. 6. Hypothyroidism, on Synthroid. 7. Deep venous thrombosis and gastrointestinal prophylaxis as per order sheet, and will keep her here over the weekend and will address the issue on Sunday. Continue present treatment. LEVEL OF DOCUMENTATION: 35 minutes. cc: Michael Cloud MD
[2019-05-16] MEDS: DILAUDID IV PRN ×6 (01:22→22:04)
[2019-05-16] MEDS: CLINIMIX E 4.25%-5% SOLUTION 1,000 ML IV SCH ×4 (03:50→22:09)
[2019-05-16] MEDS: VANCOCIN PO SCH ×4 (04:52→20:26)
[2019-05-16] MEDS: MERREM 2 GM in NS 100 ML IV SCH ×3 (06:33→23:06)
[2019-05-16] MEDS: SYNTHROID PO SCH (06:33)
[2019-05-16] MEDS: MAGNESIUM GLUCONATE PO SCH (09:43)
[2019-05-16] MEDS: KLOR-CON PO SCH (09:44)
[2019-05-16] MEDS: PROTONIX IV SCH (09:44)
[2019-05-16] MEDS: CULTURELLE PO SCH (09:44)
[2019-05-16] MEDS: WELCHOL PO SCH ×2 (09:44→20:27)
[2019-05-16] MEDS: LOVENOX SUBQ SCH (09:45)
[2019-05-16] MEDS: DURAGESIC 50 MICROGM/HR PATCH TD SCH (13:45)
[2019-05-16] MEDS: CUBICIN 500 MG in NS 100 ML IV SCH ×2 (14:39→15:53)
--- NOTE | 2019-05-16 14:46 | INFECTIOUS DISEASE PROGRESS NO ---
DATE: 05/16/2019 PRESENT ILLNESS: Ms. Charles has a Staph epidermidis bacteremia and left upper arm and chest multidrug resistant Pseudomonas infection as well as Clostridium difficile diarrhea. MEDICATIONS: Based on her sterile blood cultures, today is day 3 of treatment for her Staph epidermidis bacteremia. She is receiving daptomycin 500 mg IV every 24 hours, meropenem 2 g IV every 8 hours, IV tobramycin per pharmacy dosing, rifampin 600 mg by mouth every 24 hours, and oral vancomycin 250 mg every 6 hours. PHYSICAL EXAMINATION: Vital Signs: Temperature is 98.8 degrees, pulse rate 93, respiratory rate 17, blood pressure 116/61, O2 saturation is 99% on room air. General: This is a chronically ill- appearing, obese female. She is lying in the bed currently in no acute distress. HEENT: Atraumatic, normocephalic. Oral mucous membranes are pink and moist. Conjunctivae are pale. Neck: Has some decrease in suppleness. Trachea is midline. Respiratory: Lung sounds are clear in the upper lobes. Diminished in the bases bilaterally. No work of breathing is noted. Cardiovascular: Heart rate is regular. S1, S2 noted. Abdomen: Soft, obese, nontender. Bowel sounds are active. Integumentary: She has dressing in place to her left chest and neck with an Jamel wrap covering. There is some erythematous and weepy skin noted to the left upper arm with lymphedema noted to the left upper extremity with 3+ pitting edema. She has a right intrajugular triple-lumen catheter in place and that site is free of edema, erythema, or drainage. Neurologic: She is awake, alert, oriented, and moving around in the bed with assistance. The left upper extremity mobility is more dramatically diminished and up on a pillow at this time. LAB/X-RAY: None available today. ASSESSMENT AND PLAN: Ms. Charles is being treated for a Staphylococcus epidermidis bacteremia using daptomycin. Today is day 3 of her treatment based on her sterile blood cultures. There is also an extensive left upper arm and left chest multidrug resistant Pseudomonas for which she is receiving meropenem, tobramycin, and rifampin, which we will continue. For the C. difficile, she is receiving vancomycin by mouth. The diarrhea has improved and we will continue that for at least 14 days. These plans have been discussed with and recommended by Dr. Moss. COMORBIDITIES: For the patient include obesity, metastatic breast cancer, and diabetes mellitus. Dictated by DANIELE Joe for Candido Moss MD cc: MD Michael Wilson MD MTDD
[2019-05-16] MEDS: NORCO-5 PO PRN (16:30)
[2019-05-16] MEDS: RIFAMPIN PO SCH (20:27)
--- NOTE | 2019-05-16 20:31 | GENERAL SURGERY PROGRESS NOTE ---
DATE: 05/16/2019 SUBJECTIVE: Overall feels stronger. Says her diarrhea is improving. No fevers. No tachycardia. OBJECTIVE: Vital Signs: Blood pressure 100/63, oxygen saturation is 98% on 2 L,. General: She is alert. Right neck central line is in place and without any erythema. Right port removal site is intact without any cellulitis. Chest: She has a dressing in place over the left chest/neck. Extremities: Stable lymphedema changes in the left upper extremity with radiation changes in the medial aspect of her biceps. LABORATORY DATA: I reviewed her labs. ASSESSMENT AND PLAN: A 64-year-old female with end stages of breast carcinoma. 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 I will continue local wound care with her compression device as indicated with elevation of the left upper extremity. She is on numerous antibiotics. Will follow along. cc: MD Michael Bloom MD
--- NOTE | 2019-05-16 22:42 | PROGRESS NOTE ---
DATE: 05/16/2019 SUBJECTIVE: The patient is in good spirits. REVIEW OF SYSTEMS: Continues to have lymphedema of the left arm with extensive redness and excoriation on the medial side of left arm noted. All of the wounds are dressed up. Stools are getting soft. No chest pain, shortness of breath. Intermittent confusion. OBJECTIVE: Temperature is 98.1 degrees, pulse 90, blood pressure 117/59.HEENT: Within normal limits. Neck: Supple. No lymphadenopathy. Chest: Bilateral air entry. Heart sounds are regular and central line placed on the right side of the neck. Belly is soft, nontender. Good bowel sounds. No peripheral edema. Left arm diffusely swollen. I am really concerned about necroses of the skin on the medial side of left arm. INVESTIGATIONS: None reported. ASSESSMENT AND PLAN: 1. Pancytopenia due to chemotherapy. Hematological support as needed. The patient did receive 1 unit of packed red blood cells. 2. Staph epidermatitis Port-A-Cath infection. Removed the port and central line was placed in the right internal jugular. Currently, receiving IV daptomycin, rifampin. 3. Clostridium difficile diarrhea. Improving. Repeat stool cultures are negative. Continue on Welchol and p.o. vancomycin. 4. Pseudomonas-resistant wound infection on the chest wall. Currently, on meropenem 2 g IV q.8 and tobramycin as per Dr. Moss. 5. Hypothyroidism. On Synthroid. Continue on Culturelle. Pain is adequately controlled on hydrocodone, Dilaudid, and fentanyl patch. 6. Deep vein thrombosis and gastrointestinal prophylaxis. As per order sheet. Out of the bed with physical therapy. 7. Intravenous Clinimix for nutrition. 8. Lymphedema of the left arm with impending skin necrosis. Discussed with Dr. Moss. We will also communicate with Dr. Quiñones and repeat the labs tomorrow. Dr. Crocker is going to follow up. LEVEL OF DOCUMENTATION: 25 minutes. cc: Michael Cloud MD
[2019-05-16] MEDS: MELATONIN PO PRN (23:45)
[2019-05-16] MEDS: AMBIEN PO PRN (23:45)
[2019-05-17] MEDS: DILAUDID IV PRN ×7 (00:59→21:20)
[2019-05-17] MEDS: VANCOCIN PO SCH ×4 (00:59→20:12)
[2019-05-17] MEDS: NORCO-5 PO PRN ×2 (05:47→12:54)
[2019-05-17] MEDS: SYNTHROID PO SCH ×2 (05:47→06:37)
[2019-05-17 06:43] LABS: MCH 30.2 PG (27-31); MCHC 32.3 g/dL (33-37); MCV 93.7 FL (81-99); MPV 9.5 FL (7.4-10.4); RBC 3.31 XMIL (4.2-5.4); RDW 18.2 % (11.5-14.5); WBC 7.4 X1000 (4.8-10.8)
[2019-05-17] MEDS: MERREM 2 GM in NS 100 ML IV SCH ×3 (06:43→22:26)
[2019-05-17 06:50] LABS: AGAP 10; ALB/GLOB RATIO 0.7; ALBUMIN 2.3 g/dL (3.5-5.0); ALKALINE PHOSPHATASE 144 U/L (32-104); BUN 23 mg/dL (8-22); CHLORIDE 101 mmol/L (98-107); COSMO 272; CREATININE 0.5 mg/dL (0.5-0.9); ESTIMATED GFR > 60; GLUCOSE 100 mg/dL (70-104); GOT 14 U/L (10-30); GPT 7 U/L (10-36); POTASSIUM 4.9 mmol/L (3.5-5.1); SODIUM 134 mmol/L (136-145); TCO2 23 mmol/L (25-35); TOTAL BILIRUBIN 0.42 mg/dL (0.20-1.00); TOTAL PROTEIN 5.7 g/dL (6.3-8.3)
[2019-05-17] MEDS: CLINIMIX E 4.25%-5% SOLUTION 1,000 ML IV SCH ×3 (09:00→22:26)
[2019-05-17] MEDS: KLOR-CON PO SCH (09:03)
[2019-05-17] MEDS: CULTURELLE PO SCH (09:03)
[2019-05-17] MEDS: PROTONIX IV SCH (09:03)
[2019-05-17] MEDS: WELCHOL PO SCH ×2 (09:03→20:12)
[2019-05-17] MEDS: LOVENOX SUBQ SCH (10:43)
[2019-05-17] MEDS: MAGNESIUM GLUCONATE PO SCH (11:03)
--- NOTE | 2019-05-17 12:10 | PROGRESS NOTE ---
DATE: 05/17/2019 SUBJECTIVE: Patient upbeat and in good spirits today. She has no complaints. Diarrhea has slowed. OBJECTIVE: Afebrile pulse 86, respirations 18, blood pressure 124/64, O2 saturation room air 98%.CV: RRR. Lungs: Clear. Left upper chest is bandaged. Extremities: She has prominent redness left upper arm and lymphedema to her left upper and especially her left lower arm, by nursing staff and by patient, this is unchanged. Abdomen: Soft, active bowel sounds, nontender. Extremities: No major lower extremity edema or calf tenderness. Neurologic: Nonfocal. LABS: White count 7.4, hemoglobin 10, platelets 68,000 and stable. Sodium 134, potassium 4.9, chloride 101, CO2 23, BUN 23, creatinine 0.5, glucose 100, calcium 8, total bilirubin 0.42, AST 14, ALT 7, alkaline phosphatase 144, albumin 2.3. ASSESSMENT: 1. Staph epidermidis Port-A-Cath infection, status post removal of the port and placement of central line. The patient on IV antibiotics per Dr. Moss, Infectious Disease in the form of rifampin and daptomycin. 2. 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 3. C. difficile colitis, now with negative C. diff toxin antibody, improving clinically and remains on oral vancomycin and probiotics and Welchol to bulk the stool. 4. Lymphedema left arm, followed by Surgery. 5. History of breast cancer. 6. Hypothyroidism. 7. Anemia and thrombocytopenia related to chemotherapy with normal white count currently. PLAN: Continue present treatments and supportive measures. Seems to be improving slowly. cc: MD Michael Gonsalez MD
[2019-05-17] MEDS: CUBICIN 500 MG in NS 100 ML IV SCH (16:29)
[2019-05-17] MEDS: NS IV SCH (17:15)
[2019-05-17] MEDS: TOBRAMYCIN IV SCH (17:15)
[2019-05-17] MEDS: RIFAMPIN PO SCH (20:12)
[2019-05-17] MEDS: AMBIEN PO PRN (21:25)
--- NOTE | 2019-05-17 22:08 | GENERAL SURGERY PROGRESS NOTE ---
DATE: 05/17/2019 She is afebrile. Hemodynamics are good. Bandages are in place. She has a central line that she is using after removal of her port. Her white count is 7400. Her C difficile is clearing. No new recommendations. cc: MD Michael Rich MD
[2019-05-18] MEDS: VANCOCIN PO SCH ×5 (00:54→20:14)
[2019-05-18] MEDS: CLINIMIX E 4.25%-5% SOLUTION 1,000 ML IV SCH ×4 (01:22→21:51)
[2019-05-18] MEDS: DILAUDID IV PRN ×5 (03:36→20:15)
[2019-05-18] MEDS: SYNTHROID PO SCH (06:05)
[2019-05-18] MEDS: MERREM 2 GM in NS 100 ML IV SCH ×3 (06:05→23:26)
[2019-05-18] MEDS: WELCHOL PO SCH ×2 (09:00→20:14)
[2019-05-18] MEDS: CULTURELLE PO SCH (09:00)
[2019-05-18] MEDS: PROTONIX IV SCH (09:00)
[2019-05-18] MEDS: KLOR-CON PO SCH (09:00)
[2019-05-18] MEDS: LOVENOX SUBQ SCH (09:01)
[2019-05-18] MEDS: MAGNESIUM GLUCONATE PO SCH (09:01)
--- NOTE | 2019-05-18 12:23 | PROGRESS NOTE ---
DATE: 05/18/2019 SUBJECTIVE: The patient is stable. She complains of urinating so much related to IV fluids. She is on amino acids. She is tolerating her meals now at 100%. Two soft bowel movements in the past 24 hours. OBJECTIVE: Vital Signs: Afebrile. Vital signs stable. CV: RRR. Lungs: Clear. Chest wall is bandaged. There is redness and swelling at the left arm, unchanged from yesterday. Extremities: No edema. Abdomen: Nontender. Neurologic: The patient is alert and oriented x3. No focal deficits. LABORATORY DATA: No labs obtained today. ASSESSMENT: 1. Staphylococcus epidermidis Port-A-Cath infection, status post port removal and placement of central line, on intravenous antibiotics per Dr. Moss in the form of rifampin and daptomycin. 2. Chronic Pseudomonas left chest wall infection, on chronic meropenem and antibiotic. 3. Clostridium difficile colitis. Clearing now. Remains on oral vancomycin and probiotics, and is bulking the stool with Welchol. 4. Lymphedema, left arm. 5. History of breast cancer. 6. Hypothyroidism. 7. Anemia with thrombocytopenia related to chemotherapy. 8. Malnutrition. PLAN: Will continue her amino acids currently. Dr. Cloud may look to try to stop that tomorrow if she continues to complain of polyuria. For now, will try to keep that going to help her nutrition status and help her healing process. Continue other treatments ongoing. cc: MD Michael Gonsalez MD
[2019-05-18] MEDS: NORCO-5 PO PRN ×3 (13:27→23:41)
[2019-05-18] MEDS: CUBICIN 500 MG in NS 100 ML IV SCH (16:04)
[2019-05-18] MEDS: MELATONIN PO PRN (20:13)
[2019-05-18] MEDS: RIFAMPIN PO SCH (20:14)
[2019-05-19] MEDS: DILAUDID IV PRN ×7 (01:08→23:47)
[2019-05-19] MEDS: VANCOCIN PO SCH ×4 (02:32→21:59)
[2019-05-19] MEDS: CLINIMIX E 4.25%-5% SOLUTION 1,000 ML IV SCH ×4 (03:39→23:45)
[2019-05-19] MEDS: SYNTHROID PO SCH ×2 (05:30→06:00)
[2019-05-19] MEDS: PROTONIX PO SCH ×2 (05:31→05:59)
[2019-05-19] MEDS: NORCO-5 PO PRN ×3 (05:50→21:59)
[2019-05-19 07:10] LABS: AGAP 11; BUN 27 mg/dL (8-22); CHLORIDE 98 mmol/L (98-107); COSMO 269; CREATININE 0.6 mg/dL (0.5-0.9); ESTIMATED GFR > 60; GLUCOSE 123 mg/dL (70-104); POTASSIUM 4.9 mmol/L (3.5-5.1); SODIUM 131 mmol/L (136-145); TCO2 22 mmol/L (25-35)
[2019-05-19 07:11] LABS: BASO# 0.03 X1000 (0.0-0.2); BASO% 0.4 % (0.0-0.8); HEMATOCRIT 31.4 % (37.0-47.0); LYMPH# 1.15 X1000 (1.2-3.4); LYMPH% 14.8 % (20.5-51.1); MCH 29.5 PG (27-31); MCHC 31.8 g/dL (33-37); MCV 92.6 FL (81-99); MONO# 0.55 X1000 (0.11-0.59); MONO% 7.1 % (1.7-9.3); MPV 9.9 FL (7.4-10.4); PLT 93 X1000 (130-400); RBC 3.39 XMIL (4.2-5.4); RDW 18.2 % (11.5-14.5); WBC 7.75 X1000 (4.8-10.8)
[2019-05-19 08:00] LABS: BANDS 2 % (0-1); LYMPHS 16 % (21-51); MONO 8 % (1-9); SEGS 74 % (42-75)
[2019-05-19] MEDS: MERREM 2 GM in NS 100 ML IV SCH ×2 (08:22→16:26)
[2019-05-19] MEDS: LOVENOX SUBQ SCH (08:23)
[2019-05-19] MEDS: KLOR-CON PO SCH (08:23)
[2019-05-19] MEDS: WELCHOL PO SCH ×2 (08:23→22:00)
[2019-05-19] MEDS: MAGNESIUM GLUCONATE PO SCH (08:24)
[2019-05-19] MEDS: CULTURELLE PO SCH (08:24)
[2019-05-19] MEDS: DURAGESIC 50 MICROGM/HR PATCH TD SCH (13:50)
--- NOTE | 2019-05-19 16:00 | INFECTIOUS DISEASE PROGRESS NO ---
DATE: 05/19/2019 HISTORY OF PRESENT ILLNESS: The patient has a Staph epidermidis bacteremia which originated from the patient's Port-A-Cath. The Port-A-Cath has since been removed. She also has a multidrug resistant Pseudomonas infection of her left upper arm and chest, where the patient received radiation therapy. Finally, the patient has Clostridium difficile diarrhea. MEDICATIONS: This is day 10 of treatment with daptomycin and day 6 of treatment with rifampin for the patient's Staph bacteremia. This is day 7 for treatment with meropenem and tobramycin for the patient's Pseudomonas infection of the chest and arm. The patient also is on p.o. vancomycin for her Clostridium difficile diarrhea. This is day 11 of treatment with p.o. vancomycin for the Clostridium difficile diarrhea. PHYSICAL EXAMINATION: Vital Signs: Temperature is 97.8 degrees, pulse 98, respirations 13, blood pressure 119/61. Generally: This is a chronically ill-appearing obese female. She is in no acute distress. Head/eyes/ears/nose/throat: She can hear my spoken words and see near objects. She does not have any white patches in her mouth. Neck: No pain with movement. The patient has a right-sided jugular vein catheter in place. Thorax: Patient has a large dressing across the left chest and extending into the axilla area. Lungs: Clear to auscultation. Cardiovascular: Regular heart rate. Abdomen: Soft and nontender. Extremities: The patient's left arm is very swollen and erythematous. LAB AND X-RAY: CBC shows a white count of 7750, hemoglobin 10, platelet count 93,000. Creatinine is 0.6. GFR is greater than 60. ASSESSMENT AND PLAN: For now, I am going to continue with the patient's antibiotics for the above- listed infections. COMORBIDITIES: The patient is obese and unfortunately she has metastatic breast cancer and diabetes mellitus. Also, unfortunately, the patient had radiation therapy which damaged her skin quite a bit. cc: MD Michael Wilson MD
[2019-05-19] MEDS: CUBICIN 500 MG in NS 100 ML IV SCH (16:26)
[2019-05-19] MEDS: ATARAX PO PRN ×2 (16:44→23:48)
[2019-05-19] MEDS: TOBRAMYCIN IV SCH (17:50)
[2019-05-19] MEDS: NS IV SCH (17:50)
[2019-05-19] MEDS: RIFAMPIN PO SCH (22:00)
[2019-05-20] MEDS: MERREM 2 GM in NS 100 ML IV SCH ×2 (01:54→09:10)
[2019-05-20] MEDS: MELATONIN PO PRN (02:06)
[2019-05-20] MEDS: NORCO-5 PO PRN ×2 (03:49→18:55)
[2019-05-20] MEDS: VANCOCIN PO SCH ×4 (03:53→21:10)
[2019-05-20] MEDS: SYNTHROID PO SCH ×2 (05:36→06:07)
[2019-05-20] MEDS: PROTONIX PO SCH ×2 (05:36→06:06)
[2019-05-20] MEDS: DILAUDID IV PRN ×7 (05:37→23:48)
--- NOTE | 2019-05-20 07:09 | PROGRESS NOTE ---
DATE: 05/19/2019 SUBJECTIVE: Events noted over the weekend. Patient has been in good spirits. Wound care nurse consulted. Janell is going to change the wound dressing. Stool is forming. No diarrhea. Left arm diffusely edematous with necrotic tissue on the medial side. REVIEW OF SYSTEMS: None reported. PHYSICAL EXAMINATION: Temperature 97.8 degrees, pulse 103, blood pressure is 127/84. HEENT Examination: Within normal limits. Neck: Supple. Chest Wall: Has dressings noted. The left arm diffusely with lymphedema with skin necrosis noted. Belly is soft and nontender. Good bowel sounds. No peripheral edema. No obvious deficits. INVESTIGATIONS: CBC: White cell count 7.7, hematocrit 31.4, platelets 93,000. Sodium 131, potassium 4.9, BUN 27, creatinine 0.6, glucose 123. Microbiology: Cultures, repeat Clostridium difficile toxin was negative. ASSESSMENT AND PLAN: 1. Methicillin-resistant Staphylococcus epidermidis due to port infection, better. The patient has been on daptomycin since 05/09/2019. 2. Clostridium difficile diarrhea is better, on vancomycin since 05/08/2019 and also Welchol. 3. Deep venous thrombosis prophylaxis with Lovenox. 4. Chronic pain, on fentanyl patch and [place]. 5. Pseudomonas aeruginosa, sensitive for meropenem and tobramycin. Currently receiving meropenem and tobramycin. 6. Left arm lymphedema with necroses. I doubt it is going to be necrotic. It is very hard to heal and we will follow up. 7. Continue intravenous Clinimix. Out of the bed with physical therapy. 8. Hypothyroidism, on Synthroid. 9. We will coordinate between Dr. Moss and the wound consult. LEVEL OF DOCUMENTATION: 25 minutes. cc: Michael Cloud MD
[2019-05-20] MEDS: WELCHOL PO SCH ×2 (08:51→21:10)
[2019-05-20] MEDS: KLOR-CON PO SCH (08:51)
[2019-05-20] MEDS: MAGNESIUM GLUCONATE PO SCH (08:51)
[2019-05-20] MEDS: CULTURELLE PO SCH (08:53)
[2019-05-20] MEDS: LOVENOX SUBQ SCH (08:53)
[2019-05-20] MEDS: CLINIMIX E 4.25%-5% SOLUTION 1,000 ML IV SCH ×2 (10:39→23:47)
[2019-05-20 10:48] LABS: INR 1.23; PROTIME 15.7 Seconds (11.0-16.0)
[2019-05-20] MEDS ORDERED: NS 250 ML ONE (11:01)
[2019-05-20] MEDS: XYLOCAINE 4% TOPICAL SOLUTION TOP SCH (13:17)
[2019-05-20] MEDS: ATARAX PO PRN (15:50)
--- NOTE | 2019-05-20 16:23 | INFECTIOUS DISEASE PROGRESS NO ---
DATE: 05/20/2019 PRESENT ILLNESS: The patient has Staph epidermidis bacteremia which originated from her Port-A- Cath that has been removed. The patient also has a multidrug resistant Pseudomonas infection involving her chest, back and arm wounds. Finally, the patient has Clostridium difficile for which she is receiving p.o. vancomycin. This is day 12 of treatment with p.o. vancomycin. MEDICATIONS: The patient's Staph epidermidis bacteremia is being treated with a combination of daptomycin and rifampin. This is day 11 of treatment with daptomycin and day 7 of treatment with rifampin. The patient's Pseudomonas infection of her chest and arm wounds is being treated with meropenem and tobramycin. The patient has had a total of 8 days of treatment with both those agents. Finally, the patient's Clostridium difficile diarrhea is being treated by p.o. vancomycin and this is day 12 of treatment with vancomycin. PHYSICAL EXAMINATION: Vital Signs: Temperature is 98 degrees, pulse 100, respirations 20, blood pressure 120/70. General: This is a chronically ill-appearing obese female. Today, I was in the room when her dressings were taken off and she despite getting pain medication was having excruciating pain. Head, eyes, ears, nose and throat: She can hear my spoken words and see near objects. She does not have any white coating on her tongue. Thorax: The patient's wounds were inspected. All the wounds are very deep. There is a lot of devitalized tissue. There is no evidence of new tissue forming at all. There was no odor to the wound. I did not see any bartolo pus and I did not see any necrotic tissue but most all the tissue in the chest was devitalized. The wounds involve the front of the chest, the back area up in the neck and the left arm. With all the dressings off, I was unable to listen to her heart or lung. Abdomen: Soft and nontender. Neurologic: The patient is awake. She cried a lot during the time the dressings were being removed but she was talking very coherently. LAB AND X-RAY: There is no new lab or x-ray for today except we got back the Pseudomonas susceptibility testing. It was resistant to all antibiotics except meropenem to which it is intermediately susceptible and the aminoglycosides such as tobramycin and gentamicin to which it is fully susceptible. ASSESSMENT AND PLAN: Patient unfortunately has huge wounds that have no chance of ever healing and they are causing her excruciating pain. I discussed with the patient about hospice call and she would like to do that so she can have pain relief and most of all she wants to be at home and be with her family. I notified her oncologist, Dr. Ashley, and he is going to be seeing her this afternoon and he said he would be putting in the consult for hospice care. COMORBIDITIES: The patient had metastatic breast cancer and diabetes mellitus. Unfortunately, she had extensive radiation therapy to her chest and back. I am signing off the patient's case. cc: MD Michael Wilson MD MTDD
--- NOTE | 2019-05-20 21:51 | PROGRESS NOTE ---
DATE: 05/20/2019 SUBJECTIVE: We had several phone calls with Dr. Moss, family members and social worker school. Apparently, the left arm is not doing very well. It is completely ischemic, necrotic, resistance Pseudomonas. Initial plan was IV antibiotics for 2 weeks. Apparently the chest infection due to Pseudomonas extending on the lymphedema. It is hard to eradicate the infection by IV antibiotics with metastatic breast cancer. The patient is slowly dwindling. Family agreed upon palliative care with hospice. OBJECTIVE: Vital signs: Temperature is 97 degrees. Vitals are stable. HEENT Exam: Within normal limits. Chest: Bilateral air entry and wounds are chronically necrotic with drainage all over the chest wall. No improvement. LABS: Yesterday was white cell count 7.7, hematocrit 31.4, platelets 93,000. Sodium 131, potassium 4.9, BUN 27, creatinine 0.6. ASSESSMENT AND PLAN: Refractory Pseudomonas infection of the chest wall from radiation burn. I agree with Dr. Moss with underlying comorbid condition and stage IV breast cancer and living will, DNR. Family has decided to go for hospice and Dr. Moss obviously discontinued IV antibiotics and will make the arrangements tomorrow to go home with hospice, and palliative care hospice was consulted. LEVEL OF DOCUMENTATION: 35 minutes. cc: Michael Cloud MD [facility]
[2019-05-21] MEDS: NORCO-5 PO PRN ×3 (01:59→22:08)
[2019-05-21] MEDS: ATARAX PO PRN (01:59)
[2019-05-21] MEDS: MELATONIN PO PRN ×2 (02:00→22:08)
[2019-05-21] MEDS: VANCOCIN PO SCH ×4 (02:00→19:33)
[2019-05-21] MEDS: DILAUDID IV PRN ×5 (03:57→19:33)
[2019-05-21] MEDS: PROTONIX PO SCH ×2 (05:16→06:01)
[2019-05-21] MEDS: SYNTHROID PO SCH ×2 (05:16→06:02)
[2019-05-21] MEDS ORDERED: MERREM 1 GM in NS 50 ML IV SCH (08:30)
[2019-05-21] MEDS: MAGNESIUM GLUCONATE PO SCH (09:09)
[2019-05-21] MEDS: CULTURELLE PO SCH (09:09)
[2019-05-21] MEDS: WELCHOL PO SCH ×3 (09:09→21:52)
[2019-05-21] MEDS: LOVENOX SUBQ SCH (09:10)
[2019-05-21] MEDS: KLOR-CON PO SCH (09:22)
[2019-05-21] MEDS: XYLOCAINE 4% TOPICAL SOLUTION TOP SCH (11:07)
[2019-05-21] MEDS: LOTRISONE CREAM TOP SCH ×2 (11:22→21:52)
[2019-05-21] MEDS: CLINIMIX E 4.25%-5% SOLUTION 1,000 ML IV SCH (12:50)
--- NOTE | 2019-05-21 13:29 | INFECTIOUS DISEASE PROGRESS NO ---
DATE: 05/21/2019 PRESENT ILLNESS: The patient has been treated for Staph epidermidis bacteremia that originated from her Port-A-Cath. She also has had treatment for a multiply resistant Pseudomonas infection involving her wounds on the chest, back, and arm. The patient also has been receiving p.o. vancomycin because she had Clostridium difficile diarrhea. The patient also has a painful, erythematous perineum that I think could be due to a fungal infection. MEDICATIONS: The patient's antibiotics have been discontinued, except for the patient's p.o. vancomycin to treat the patient's Clostridium difficile diarrhea. This is day 13 of treatment with it, and the patient had been receiving antibiotics, even today. PHYSICAL EXAMINATION: Vital Signs: Temperature is 98.1 degrees, pulse 95, respirations 18, blood pressure 125/69. General: This is an ill-appearing, middle-aged female. She continues to have quite a bit of pain from her wounds on the chest and arm. HEENT: She can hear my spoken words and see near objects. She does not have any white coating on her tongue. Lungs: Clear to auscultation. Cardiovascular: Regular heart rate. Abdomen: Soft and nontender. Thorax: The patient has a large dressing around her thorax. Extremities: The left arm is very swollen and has some devitalized tissue in it also. Neurologic: The patient is alert. She can move her extremities, except it is very hard with her left arm. There is no tremor. Pelvic: In the perineum, it is very erythematous and tender. IMAGING AND LABORATORY DATA: There is no lab or x-ray for today. ASSESSMENT AND PLAN: I talked with the patient about her treatment for her wounds on her chest and arm. There is quite a lot of devitalized tissue. There was no pus that I saw yesterday, and there was no necrotic wet tissue either. I told the patient that I doubt that further antibiotics would help these wounds because there is a lot of devitalized tissue, which means that there is not a good blood supply, and the antibiotics would not be able to get to the infection. She understands this. Also, she understands that the vancomycin has treated her staphylococcal infection, and that antibiotic along with the meropenem and tobramycin can be discontinued. As regarding the patient's perineum, I think it is possible that she could have a fungal infection because she has received a lot of antibiotics, and fungus could have overgrown that area. I have ordered, for that area, Lotrisone cream to be put on every 12 hours, and hopefully that will relieve some of the pain and inflammation in the area. We also talked about when she goes home with hospice, that it would probably be a good thing for her to go into the shower and put it on a very low pressure, and if it does not hurt her too much, she could use that in her wounds, and that might help get rid of some devitalized tissue. COMORBIDITIES: The patient has metastatic breast cancer and diabetes. She also has extensive wounds on her chest and arm due to radiation therapy. I am signing off on the patient's case. cc: MD Michael Wilson MD
[2019-05-21] MEDS: AMBIEN PO PRN (22:08)
--- NOTE | 2019-05-21 22:38 | HEMO/ONC CONSULTATION ---
DATE: 05/21/2019 ADMITTING PHYSICIAN: Dr. Adams. REQUESTING PHYSICIAN: Dr. Adams. We appreciate this consult. CHIEF COMPLAINT: Metastatic breast cancer with ongoing pain. HISTORY OF PRESENT ILLNESS: Ms. Paty Charles is a 64-year-old female well known to Dr. Ashley with a history of metastatic breast cancer. She is status post recent debridement from left chest wound by Dr. Amarjit Quiñones. The patient was being followed by home health nurse who reported that she had a fever of 100.6. The patient had been feeling quite weak and had received 2 L of normal saline, but continued to have worsening weakness as well as confusion and visual hallucinations. The patient was admitted to [facility] secondary to profound left chest pain, worsening mentation and fever with pancytopenia. We are consulted as the patient is well known to us. The patient has been maintained on Avastin, carboplatin and Abraxane. Her next dose of treatment was due tomorrow. PAST MEDICAL HISTORY: 1. Metastatic breast cancer. 2. Cervical spondylosis. 3. Hypertension. 4. Shingles. 5. Hyperlipidemia. 6. Obstructive sleep apnea. 7. Diabetes mellitus type 2. PAST SURGICAL HISTORY: 1. Left radical mastectomy with bilateral breast reconstruction. 2. Implant infection with debridement. 3. Dermoid cyst removal. 4. Right sided Port-A-Cath placement. FAMILY HISTORY: Significant for breast cancer in the patient's mother. SOCIAL HISTORY: The patient does not use tobacco, alcohol or illicit drugs. MEDICATIONS ON ADMISSION: 1. Baclofen. 2. Zyrtec. 3. Famotidine. 4. Fentanyl. 5. [place]. 6. Probiotics. 7. Levothyroxine. 8. Potassium. 9. Effexor. 10. Magnesium. ALLERGIES: Loratadine, nasal steroids and pseudoephedrine. REVIEW OF SYSTEMS: A 14 point review of systems was obtained and is negative except for mentioned in HPI. PHYSICAL EXAMINATION: Ms. Paty Charles is a 64-year-old female lying supine in bed in no immediate distress.Vital Signs: Temperature 99.2 degrees, blood pressure 143/78, heart rate 101, respirations 16, O2 saturation is 100% on room air. HEENT: Normocephalic, atraumatic. Mucous membranes are pale and moist. Sclerae anicteric. Extraocular movements intact. Neck: Supple with significant dressing to the left neck. Lungs: Clear to auscultation bilaterally. Chest expansion is equal bilaterally. CV: S1, S2 is heard. The patient is tachycardic. There are no murmurs, rubs or gallops. Abdomen: Nondistended. Extremities: The patient does have 1+ bilateral lower extremity edema. Dermatologic: No rashes, bruises or lesions are observed. Again, the patient does have a significant dressing to her left chest. Neurologic: The patient is awake, alert, and oriented x3. She has no focal deficits. LABORATORY DATA: Hemoglobin 9.6, hematocrit 30.6. White blood cell count is 6.60, platelets are 72,000. Sodium 133, potassium 3.7, chloride 106, CO2 is 15, BUN 10 and creatinine is 0.7, glucose is 102. ASSESSMENT AND PLAN: 1. Metastatic breast cancer with recent removal of the implant secondary to necrotic tissue. She is currently status post surgical debridement. She is on Avastin and carboplatin and Abraxane. Next dose was due tomorrow. We will hold treatment at this time secondary to the patient's acute illness. 2. Staph epidermidis sepsis. Currently on antibiotics with infectious disease following. 3. Pancytopenia secondary to chemotherapy. CBC is currently stable. We will continue to monitor closely. 4. Clostridium difficile colitis. Currently on p.o. vancomycin. 5. Hyponatremia. Sodium is currently 133. 6. Altered mental status, multifactorial. The patient's mentation has improved significantly. She is alert and oriented x3. We will continue to monitor. 7. We will follow along with you and make further recommendations pending outcomes. The above reflects the history, exam, assessment and plan of Dr. Ashley. Dictated by DANIELE Bhakta for Artemio Ashley MD cc: DANIELE Bhakta MD Jagan Reddy, MD
--- NOTE | 2019-05-21 22:42 | PROGRESS NOTE ---
DATE: 05/21/2019 SUBJECTIVE: The patient and family is leaning towards hospice and this morning I had a long discussion. The is under the impression that the patient is going home with hospice with IV antibiotics. PICC line was placed. Central line was disconnected. I did review the pictures that was taken by the wound consult Janell and these chest wall radiation farias left arm lymphedema are not improving. I have to discuss with Dr. Moss, that when she goes to the hospice, whether she needs IV antibiotics or not. Obviously, hospice is not going to provide IV antibiotics. The patient is little bit depressed. PHYSICAL EXAM: Temperature is 98 degrees. Vitals are stable. Physical exam has no changes. ASSESSMENT AND PLAN: 1. Metastatic stage IV breast cancer. 2. Radiation skin burn superseded with Pseudomonas resistant infection. 3. Hypothyroidism. 4. Deconditioning. 5. Poor IV access. 6. Pancytopenia due to chemotherapy. Obviously, Dr. Ashley is also leaning towards hospice. I am going to speak about giving the IV antibiotics at home and we will re-consult Dr. Moss and obviously the has to make some arrangements at home. Hospice [facility] was already involved. 7. Continue on the PICC line and based on that, we will decide the transition care to palliative care based on Dr. Moss' recommendations and continue pain control, oxygen, and we will follow up. LEVEL OF DOCUMENTATION: 35 minutes. cc: Michael Cloud MD
[2019-05-22] MEDS: DILAUDID IV PRN ×7 (00:15→22:00)
[2019-05-22] MEDS: ATARAX PO PRN ×3 (00:20→22:00)
[2019-05-22] MEDS: CLINIMIX E 4.25%-5% SOLUTION 1,000 ML IV SCH ×2 (01:24→13:10)
[2019-05-22] MEDS: VANCOCIN PO SCH ×4 (03:40→20:31)
[2019-05-22] MEDS: NORCO-5 PO PRN ×3 (05:53→20:28)
[2019-05-22] MEDS: SYNTHROID PO SCH (06:00)
[2019-05-22] MEDS: PROTONIX PO SCH (06:00)
[2019-05-22] MEDS: LOVENOX SUBQ SCH (07:56)
[2019-05-22] MEDS: CULTURELLE PO SCH (08:00)
[2019-05-22] MEDS: MAGNESIUM GLUCONATE PO SCH (08:00)
[2019-05-22] MEDS: KLOR-CON PO SCH (08:00)
[2019-05-22] MEDS: WELCHOL PO SCH ×2 (08:00→20:28)
[2019-05-22] MEDS: XYLOCAINE 4% TOPICAL SOLUTION TOP SCH (08:01)
[2019-05-22] MEDS: LOTRISONE CREAM TOP SCH ×2 (09:01→22:03)
[2019-05-22] MEDS: DURAGESIC 50 MICROGM/HR PATCH TD SCH (13:10)
[2019-05-22] MEDS: MELATONIN PO PRN (20:30)
--- NOTE | 2019-05-22 21:50 | PROGRESS NOTE ---
DATE: 05/22/2019 SUBJECTIVE: Patient is mentally prepared to go home with hospice. Agreed with the plan of care as per Dr. Moss. Unfortunately, the family was not ready to make the arrangements to take her home. has other engagements to take care of the family members. Hospice [facility] was involved. No need for antibiotics. REVIEW OF SYSTEMS: None reported. Patient has been in good spirits. PHYSICAL EXAM: Vital signs: Temperature is 97.6 degrees, pulse is 100. Vitals are stable. Skin: Extensive necrotic tissue over the left chest wall and left arm noted. PICC line on the right side. PHYSICAL EXAMINATION: No change. ASSESSMENT AND PLAN: 1. Metastatic breast cancer. 2. Radiation skin farias with superficial infection with Pseudomonas. 3. Hypothyroidism. 4. Depression. 5. Clostridium difficile infection, better. 6. Plan of care is transitioning to palliative care with [facility] tomorrow. Continue supportive care. We will make the arrangements for pain control and everything as per the [facility]. We will discharge in the morning. LEVEL OF DOCUMENTATION: 25 minutes. cc: Michael Cloud MD
[2019-05-23] MEDS: DILAUDID IV PRN ×2 (01:10→09:02)
[2019-05-23] MEDS: CLINIMIX E 4.25%-5% SOLUTION 1,000 ML IV SCH (01:33)
[2019-05-23] MEDS: VANCOCIN PO SCH ×2 (01:34→08:52)
[2019-05-23] MEDS: PROTONIX PO SCH (06:00)
[2019-05-23] MEDS: ATARAX PO PRN (06:00)
[2019-05-23] MEDS: SYNTHROID PO SCH (06:00)
[2019-05-23] MEDS: NORCO-5 PO PRN (06:03)
[2019-05-23 07:45] VITALS: BP 131/69
[2019-05-23] MEDS: WELCHOL PO SCH (08:52)
[2019-05-23] MEDS: KLOR-CON PO SCH (08:52)
[2019-05-23] MEDS: MAGNESIUM GLUCONATE PO SCH (08:52)
[2019-05-23] MEDS: LOVENOX SUBQ SCH (08:52)
[2019-05-23] MEDS: CULTURELLE PO SCH (08:52)
[2019-05-23] MEDS: XYLOCAINE 4% TOPICAL SOLUTION TOP SCH (08:58)
[2019-05-23] MEDS: LOTRISONE CREAM TOP SCH (10:12)
--- NOTE | 2019-05-25 09:00 | DISCHARGE SUMMARY ---
ADMISSION DATE: 05/06/2019 DISCHARGE DATE: 05/23/2019 DISCHARGING DIAGNOSIS: Pancytopenia due to chemotherapy from stage IV breast cancer. SECONDARY DIAGNOSES: 1. Methicillin-sensitive Staphylococcus epidermidis infection from port on the right side. 2. Clostridium difficile diarrhea. 3. Hypothyroidism. 4. 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 5. Chronic lymphedema of the left arm with infection on the medial side of the left arm. 6. Hiatal hernia. 7. History of sleep apnea. CONSULTS: 1. Dr. Quiñones. 2. Dr. Candido Moss. 3. Palliative consult. 4. Dr. Ashley. PROCEDURES: 1. Removal of Port-A-Cath. 2. Insertion of central line, right internal jugular vein. 3. PICC line. 4. Multiple blood transfusions. BRIEF HISTORY: A 64-year-old white female has been suffering from metastatic breast cancer, developed significant radiation skin farias on the left side of the chest wall, left side of the neck, extending to the left arm with a lot of lymphedema superimposed with Pseudomonas infection, multi-drug resistant. Recently had chemotherapy. Came in with altered mental status, confusion, pancytopenia, hyponatremia. HOSPITAL COURSE: 1. Pancytopenia due to chemotherapy. The patient was given multiple blood transfusions, at least 4 units of packed RBCs, to maintain hematocrit around 30. 2. Thrombocytopenia is improving. 3. Chemotherapy was stopped. 4. Hyponatremia. The patient was given IV normal saline. Followup hydration. Sodium levels came back normal. 5. Gram-positive sepsis reported Staphylococcus epidermidis sensitive to methicillin. It was concluded that this is infected Port-A-Cath. Port was taken out, and placed on temporary central line on the right IJ by Dr. Quiñones. Dr. Moss was consulted. The patient was given IV Cubicin and rifampin. She also developed diarrhea due to Clostridium difficile, for which p.o. vancomycin was given, along with Welchol and probiotics. Followup GI symptoms were much improved. She also developed a superficial secondary infection from the radiation, skin and bone, which is not healing, and it is a drug-resistant Pseudomonas, for which the patient was given meropenem and tobramycin. Despite that, the wounds are not healing. Extensive lymphedema noted. The patient was in a lot of pain. The pain was adequately controlled with Dilaudid, fentanyl patch, and hydrocodone. After multiple consultations, the family, with Dr. Ashley, Dr. Moss, and wound consult, at this situation, hard to heal the lesions on the chest, Palliative Care consult was obtained. The patient decided to go home with palliative hospice care. Hospice [facility] was involved. LABORATORY DATA: Labs at the time of discharge are as follows: White cell count 7.7, hematocrit 31.4, platelets 93,000. PT/INR is normal. Sodium 131, potassium 4.9, BUN 27, creatinine 0.6, glucose 123. LFTs were normal. RADIOLOGY PROCEDURES: Chest x-ray was clear. CT head was clear. DISPOSITION: The patient was given physical therapy to assist for ambulation. Family decided to go home with hospice, cleared by the [facility], by ambulance. DISCHARGE INSTRUCTIONS: 1. Living will, DO NOT RESUSCITATE. 2. PICC line was placed on the right side for pain control, Effexor 225 daily, cetirizine 10 p.o. b.i.d., [place] 7.5 t.i.d., Pepcid 20 mg p.o. b.i.d., Synthroid 75 mcg daily, fentanyl patch 50 mcg every 72 hours, baclofen 10 p.o. b.i.d., potassium 20 mEq daily, probiotic 1 tablet daily. No need for antibiotics. 3. Care of the skin, bladder, and bowels. 4. Hospice [facility] Estate Manager for the pain management. cc: MD Sukhjinder Panchal MD Leroy F. Harris, MD Dr. Harney Sammy Becdach, MD MTDD
== END 2019-05-23 10:32 | disposition hospice, home (50) | DRG 981 ==
LOC: SUPCPDRO → ED 15:56 → SUATTDRO 15:57 → 2N 15:57
PROVIDERS: ADMIT Internal Medicine; ATTEND Internal Medicine